=== PATIENT | female | born 1945 | race Caucasian/White ===

== ENCOUNTER → 2018-02-15 01:40 | Outpatient (CLI) | payer MEDICARE, BC, SELFPAY ==
--- NOTE | 2018-02-15 12:56 | DI.REPORT_ITS ---
SYMPTOM/DIAGNOSIS: SCREENING, BREAST CANCER SCREENING, Z12.31 BILATERAL SCREENING MAMMOGRAM: Mammograms were interpreted according to the usual protocol including computer analysis with CAD system, tomosynthesis and C view imaging. Comparison is made with exams from 2013 through 2017. The breasts are composed of heterogeneously dense fibroglandular tissue, breast density Category C. No suspicious masses or suspicious microcalcifications are seen. There has been no significant change. IMPRESSION: Category 1-C, negative mammogram. Routine screening is recommended. [facility] ASSESSMENT OF FINDINGS: Negative. Category 1. Patient will receive a letter notifying them of these results. Bi-RADS category C. The breasts are heterogeneously dense, which may obscure small masses.
== END ==
PROVIDERS: PCP Family Medicine; Visit Provider Family Medicine
DX: Z12.31 Encounter for screening mammogram for malignant neoplasm of breast (principal)
CPT/HCPCS: 77063; 77067

== ENCOUNTER 2018-12-03 02:03 | Outpatient (CLI) | payer MEDICARE, BC, SELFPAY ==
[2018-12-03 10:00] LABS: ALT 29 U/L (12-78); AST 14 U/L (15-37); Albumin 3.8 g/dL (3.4-5.0); Alkaline Phosphatase 97 U/L (46-116); Anion Gap 10.4 mmol/L (3-11); BUN 11 mg/dL (7-18); Bilirubin, Total 0.7 mg/dL (0.2-1.0); CO2 27.6 mmol/L (21.0-32.0); CREATININE 0.84 mg/dL (0.55-1.02); Chloride 103 mmol/L (98-107); Cholesterol 205 mg/dL (50-200); Glucose 98 mg/dL (70-100); HDL Cholesterol 76 mg/dL (40-60); LDL CHOLESTEROL 110 mg/dL (<100); Potassium 4.3 mmol/L (3.5-5.1); Sodium 141 mmol/L (136-145); Total Protein 6.5 g/dL (6.4-8.2); Triglyceride 59 mg/dL (30-150)
== END 2018-12-03 02:23 ==
PROVIDERS: PCP Family Medicine; Visit Provider Family Medicine
DX: I10 Essential (primary) hypertension (principal); I48.0 Paroxysmal atrial fibrillation; R10.9 Unspecified abdominal pain
CPT/HCPCS: 36415; 80053; 80061; 83721

== ENCOUNTER 2019-02-22 00:49 | Outpatient (CLI) | payer MEDICARE, BC, SELFPAY ==
--- NOTE | 2019-02-22 11:16 | DI.MAMMO_ITS ---
SYMPTOMS/DIAGNOSIS: SCREENING, Z12.31 MAMMOGRAMS: Mammograms were interpreted according to the usual protocol including computer analysis with CAD system, tomosynthesis and C view imaging. The breasts are heterogeneously dense. No dominant mass or clumped microcalcification is identified in either breast. Current examination is compared with previous examinations including February 2018 and there has been no gross interval change in appearance in comparison with the previous studies. CONCLUSION: No specific evidence of malignancy at this time. Routine screening examinations are suggested at yearly intervals due to the family history of breast carcinoma. Category 1, breast density category C. [facility] ASSESSMENT OF FINDINGS: Negative. Category 1. Patient will receive a letter notifying them of these results. Bi-RADS category C. The breasts are heterogeneously dense, which may obscure small masses.
== END 2019-02-22 01:09 ==
PROVIDERS: PCP Family Medicine; Visit Provider Family Medicine
DX: Z12.31 Encounter for screening mammogram for malignant neoplasm of breast (principal); Z80.3 Family history of malignant neoplasm of breast
CPT/HCPCS: 77063; 77067

== ENCOUNTER 2019-06-19 09:26 | Emergency (ER) | payer MEDICARE, BC, SELFPAY ==
[2019-06-19 09:32] VITALS: BP 152/108; PULSE 86; RESP 16; TEMP 36; O2SAT 97
--- NOTE | 2019-06-19 09:45 | ED.GENADUL_ITS ---
Discharge Plan Disposition Patient Disposition: HOME Condition: Stable Discharge Details Chief Complaint: Nk/Back Pain Clinical Impression: Spasm of thoracic back muscle Primary Care Provider: Annie Min ED Provider: Garry Culver Home Meds and New Rx's Prescriptions: New methocarbamol 500 mg tablet 500 - 1,000 mg PO Q6H PRN (Reason: Back pain or spasm) Qty: 14 RF: 0 Continued fluticasone propionate 50 mcg/actuation spray,suspension 2 spray HAYLEY DAILY PRNRF: 0 metoprolol succinate 25 mg tablet extended release 24 hr 12.5 mg PO DAILY Qty: 90 RF: 12 multivitamin [Once Daily] 1 EACH tablet 1 tab PO DAILY RF: 0 acetaminophen [Tylenol Extra Strength] 500 MG tablet 500 mg PO PRN RF: 0 ascorbic acid (vitamin C) [Vitamin C] 500 MG tablet 500 mg PO DAILY RF: 0 ibuprofen [Motrin IB] 200 MG tablet 200 mg PO PRN RF: 0 JOHANNA RED 1 cap PO DAILY RF: 0 BABY ASPIRIN 81 MG TAB.CHEW 81 mg PO DAILY RF: 0 loratadine 10 MG tablet 10 mg PO DAILY PRNQty: 90 RF: 12 albuterol sulfate [ProAir HFA] 90 mcg/actuation HFA aerosol inhaler 2 puff Inhalation Q4H PRN Qty: 8.5 RF: 7 lorazepam 0.5 mg tablet 0.5 mg PO BID PRN (Reason: agitation) Qty: 30 RF: 0 calcium carbonate [Caltrate 600] 600 MG tablet 600 mg PO BID RF: 0 cholecalciferol (vitamin D3) 1,000 UNITS tablet 1,000 unit PO DAILY RF: 0 Discharge Instructions Instructions: Muscle Spasm (ED) Additional Instructions: May continue Tylenol 500 to 650 mg every 6 hours, as well as ibuprofen 400 to 600 mg every 8 hours as needed for pain. Remove Lidoderm patch in 12 hours, leave off for 12 hours, then may obtain additional medicated patches through the local pharmacy. Please trial methocarbamol, as prescribed if needed for muscular pain and spasm. May apply ice to area to reduce discomfort. Resume normal activities as tolerated. Return if you develop worsening discomfort, fever, cough, chest pain, difficulty breathing, or any other acute concerns. Medical Decision Making 74-year-old female presents with thoracic pain and spasm that began on Thursday after lifting heavy groceries. She is noted to have hypertension 152/108 while in moderate discomfort. Patient given acetaminophen and Lidoderm patch. Referred for screening x-ray to rule out bony abnormality, mass. Chest x-ray with granulomas present, a tortuous aorta, no osseous abnormalities. Impression is of no acute process per radiology. She is improving with Lidoderm patch and Tylenol. We will trial methocarbamol for muscle pain and spasm. She understands not to take her PRN use lorazepam with this. Do not feel that there is evidence to pursue PE or aortic dissection. Discussed with the patient and her son indications to return to the ER for further evaluation or if she is not improving. HPI General Mode of arrival: ambulatory . Date/Time Provider Initiated Documentation: 06/19/19 09:28 . Limitations to Documentation: no limitations . Information obtained by: patient . History of Present Illness 74 year old F presents to the emergency department with the chief complaint of Thoracic back pain that began Thursday after carrying heavy load, described as moderate, and is localized to the chest and back. Patient reports no radiation. Patient started experiencing this hour(s) and it has been intermittent. Rest improves symptom(s), Movement worsens symptoms . Patient notes denies chest pain, cough, fever/chills, shortness of breath and syncope. Related Data Home Medications Medication Instructions Recorded Confirmed Johanna Red 1 cap PO DAILY 10/07/12 06/19/19 acetaminophen [Tylenol Extra 500 mg PO PRN 10/07/12 06/19/19 Strength] ascorbic acid (vitamin C) [Vitamin 500 mg PO DAILY 10/07/12 06/19/19 C] ibuprofen [Motrin IB] 200 mg PO PRN 10/07/12 06/19/19 multivitamin [Once Daily] 1 tab PO DAILY 10/07/12 06/19/19 calcium carbonate [Caltrate 600] 600 mg PO BID 01/13/13 06/19/19 cholecalciferol (vitamin D3) 1,000 unit PO DAILY 01/13/13 06/19/19 Baby Aspirin 81 mg PO DAILY tab-cap 11/14/13 06/19/19 loratadine 10 mg PO DAILY PRN #90 tab-cap 10/31/17 06/19/19 fluticasone propionate 50 2 spray HAYLEY DAILY PRN gm 07/08/18 06/19/19 mcg/actuation nasal spray,suspension albuterol sulfate 90 mcg/actuation 2 puff INHALATION Q4H PRN #8.5 gm 09/08/18 06/19/19 aerosol inhaler metoprolol succinate 25 mg 12.5 mg PO DAILY #90 tab 01/18/19 06/19/19 tablet,extended release 24 hr lorazepam 0.5 mg tablet 0.5 mg PO BID PRN #30 tab 03/15/19 06/19/19 methocarbamol 500 - 1,000 mg PO Q6H PRN #14 tab 06/19/19 Previous Rx's Medication Instructions Recorded albuterol sulfate 90 mcg/actuation 2 puff INHALATION Q4H PRN #8.5 gm 09/08/18 aerosol inhaler metoprolol succinate 25 mg 12.5 mg PO DAILY #90 tab 01/18/19 tablet,extended release 24 hr lorazepam 0.5 mg tablet 0.5 mg PO BID PRN #30 tab 03/15/19 methocarbamol 500 - 1,000 mg PO Q6H PRN #14 tab 06/19/19 Allergies Allergy/AdvReac Type Severity Reaction Status Date / Time doxycycline Allergy Mild Unverified 06/19/19 09:35 bupropion AdvReac Mild Unverified 06/19/19 09:35 guaifenesin AdvReac Mild Unverified 06/19/19 09:35 Sulfa (Sulfonamide AdvReac Unknown Nausea Unverified 06/19/19 09:35 Antibiotics) General Stated Complaint: Nk/Back Pain DEVIN: 4 Review of Systems Narrative: Denies rash. No fall or injury. Carrying heavy groceries up 2 flights of stairs on Thursday and then the discomfort began. She had comfort with lying flat last night. Denies urinary symptoms. 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 NORMAL BARIUM SWALLOW Onychomycosis (Chronic 02/02/17) Osteoporosis (Chronic 09/02/01) T -4.5 Paroxysmal atrial fibrillation (Chronic) Smoker (Acute 07/25/08) Surgical History (Updated 11/30/18 @ 09:49 by Adam Lopez) section (05/19/75) Colonoscopy - MAC (06/08/07) ECHO (10/15/12) PAROXYSMAL A-FIB ([facility]) EGD - MAC (~2001) HH Family History Mother , 97 Rectal cancer Father , 75 COPD (chronic obstructive pulmonary disease) Sister , 73 Neoplasm BREAST Breast cancer Sister Diabetes COPD (chronic obstructive pulmonary disease) Hyperlipidemia Brother Essential hypertension Hyperlipidemia Maternal Grandfather , 73 Depression Paternal Grandfather , 73 Stroke Maternal Grandmother , 65 Lung cancer Paternal Grandmother , 78 No problems noted. Son No problems noted. Daughter No problems noted. Social History (Updated 01/20/19 @ 13:23 by Sanford Almonte) Smoking/Tobacco Use Status: Current every day Tobacco Type: cigarettes Second Hand Exposure: Yes Alcohol Intake: current Alcohol Intake frequency: 0-2 drinks per day Alcohol type: beer Drug use: Never Substance use type: does not use Caregiver/Support person: No Household members: none Housing: apartment Communication Needs: Corrective Lenses Do you need help understanding health information?: Rarely Pets and animals: Yes Pets and animals: cat(s) Sexually active: No Do you think of yourself as: straight/heterosexual Current gender identity: female What is your relationship status?: How often do you talk on the phone with friends or family?: twice per week How often do you get together with friends or relatives?: twice per week How often do you attend hoahaoism or confucianist services?: 4 or more times per year Do you belong to any clubs or organized social groups?: no Panel score (0-1 are the most socially isolated patients): 2 What type of physical activity do you participate in: walking and other Details: Murphy Ball, Bill Chi, stationary bike Duration: 15-30 minutes/day Frequency: 3-4 times per week Komal/Latter Day: Quaker Special komal needs: No Seatbelt use: always 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 Pleasant, well groomed, interactive. HEAD: Normocephalic, atraumatic ENT: Mucous membranes moist, oropharynx unremarkable, External ear exam unremarkable EYES: PERRL, EOMI NECK: Full ROM, no ISRAEL, no menigismus CHEST/RESP: Nontender, clear to auscultation bilateral, posterior thoracic cage tenderness in the midthoracic region with paraspinous spasm on the right greater than left sides. CARDIOVASCULAR: RRR, no murmur, rub maricarmen. 2+ Rad pulse bilateral ABDOMEN: Soft, nontender, no mass. +Bowel sounds EXT: Full ROM, no edema, no rash Neuro: Grossly normal neurologic exam, conversant, interactive. Psych: Speech fluent, thoughts congruent, affect normal Course Vital Signs Vital signs: Vital Signs Temperature 36 C L 06/19/19 09:32 Pulse 86 06/19/19 09:32 Respiratory Rate 16 06/19/19 09:32 Blood Pressure 152/108 H 06/19/19 09:32 Pulse Oximetry 97 06/19/19 09:32 Temperature 36 C L 06/19/19 09:32 Temperature Source Skin 06/19/19 09:32 Pulse 86 06/19/19 09:32 Respiratory Rate 16 06/19/19 09:32 Respiratory Effort Non-Labored 06/19/19 09:32 Blood Pressure 152/108 H 06/19/19 09:32 Blood Pressure Position Sitting 06/19/19 09:32 Pulse Oximetry 97 06/19/19 09:32 Oxygen Delivery Method Room Air 06/19/19 09:32 Oxygen Flow Rate 0 06/19/19 09:32 Pain Level 9 06/19/19 09:32
[2019-06-19] MEDS: Acetaminophen 500 MG TAB 1000 MG PO (09:54)
[2019-06-19] MEDS: Lidocaine 5% Patch 1 PATCH TP (09:54)
--- NOTE | 2019-06-19 10:15 | DI.RAD_ITS ---
EXAM: XR CHEST 2V PA LATERAL INDICATION: posterior thoracic pain, smoker. COMPARISON: No exams were available for comparison TECHNIQUE: 2D digital imaging was performed. FINDINGS: The heart is mildly enlarged and the aorta is tortuous, stable. Lungs are well inflated and clear. Scattered calcified granulomas are again noted bilaterally. There is a slight compression fracture o f T9 which appears new when compared with the previous exam. IMPRESSION: Mild T9 compression fracture, new since 2018. No acute pulmonary abnormality.
--- NOTE | 2019-06-19 10:21 | DI.VRAD_ITS ---
PROCEDURE INFORMATION: Exam: XR Chest, 2 Views Exam date and time: 06/19/2019 9:45 AM Age: 74 years old Clinical history: Other: Posterior thoracic pain, smoker TECHNIQUE: Imaging protocol: XR of the chest Views: 2 views. COMPARISON: CR CHEST 2 VIEWS PA,LAT 12/08/2017 8:47 AM FINDINGS: Lungs: Defied granulomas throughout the lung fuentes Pleural space: Unremarkable. No pleural effusion. No pneumothorax. Heart/Mediastinum: Unremarkable. No cardiomegaly. Vasculature: Tortuous aorta Bones/joints: Osseous structures are stable IMPRESSION: No acute process Dictated and Authenticated by: Stephany Marina MD. Ordering:HOWARD Castañeda MD
[2019-06-19 10:38] VITALS: BP 148/100; PULSE 72; RESP 16; O2SAT 97
== END 2019-06-19 10:43 | disposition home or self-care (01) ==
PROVIDERS: Emergency Provider Emergency Medicine; PCP Family Medicine
DX: M62.830 Muscle spasm of back (principal); X50.9XXA Other and unspecified overexertion or strenuous movements or postures, initial encounter; I10 Essential (primary) hypertension
CPT/HCPCS: 99283; 71046

== ENCOUNTER 2019-06-23 17:24 | Outpatient (CLI) | payer MEDICARE, BC, SELFPAY ==
--- NOTE | 2019-06-23 15:45 | DI.RAD_ITS ---
EXAM: XR THORACIC SPINE COMPLETE CLINICAL HISTORY: compression fx thoracic spine, S22.000A, wedge compression fracture TECHNIQUE COMPARISON: CHEST 2 VIEWS PA,LAT from 12/08/2017 XR CHEST 2V PA LATERAL from 06/19/2019 FINDINGS: Three views were obtained. There are multiple calcified pulmonary granulomata. There is a left conv ex thoracic scoliosis. There is mild anterior compression fracture of what is likely T9. Mild hyper trophic endplate changes seen throughout the thoracic region. No other abnormality is seen. IMPRESSION: Mild T9 anterior compression fracture. This was not present on prior chest film of 12/08/2017.
[2019-06-23 17:14] LABS: ALT 27 U/L (14-59); AST 33 U/L (15-37); Albumin 3.7 g/dL (3.4-5.0); Alkaline Phosphatase 98 U/L (46-116); Anion Gap 7.7 mmol/L (3-11); BUN 11 mg/dL (7-18); Bilirubin, Total 0.4 mg/dL (0.2-1.0); CO2 28.3 mmol/L (21.0-32.0); CREATININE 0.75 mg/dL (0.55-1.02); Calcium 9.5 mg/dL (8.5-10.1); Chloride 104 mmol/L (98-107); Glucose 102 mg/dL (74-106); Potassium 3.8 mmol/L (3.5-5.1); Sodium 140 mmol/L (136-145); Total Protein 6.6 g/dL (6.4-8.2)
[2019-06-23 17:37] LABS: Vitamin D 25 Total 61.4 ng/ml (30-100)
== END 2019-06-23 17:44 ==
PROVIDERS: PCP Family Medicine; Visit Provider Family Medicine
DX: S22.000A Wedge compression fracture of unspecified thoracic vertebra, initial encounter for closed fracture (principal); I10 Essential (primary) hypertension; F17.200 Nicotine dependence, unspecified, uncomplicated; M81.0 Age-related osteoporosis without current pathological fracture
CPT/HCPCS: 36415; 80053; 82306; 72072

== ENCOUNTER 2019-07-18 01:39 | Outpatient (CLI) | payer MEDICARE, BC, SELFPAY ==
--- NOTE | 2019-07-18 14:17 | DI.CTLCSR_ITS ---
EXAM: CT CHEST LUNG CANCER SCREEN CLINICAL HISTORY: NICOTINE DEPENDENCE, F17.210. TECHNIQUE: Imaging protocol: Axial computed tomography images were obtained and coronal and sagittal reformatted images were created and reviewed. COMPARISON: XR THORACIC SPINE COMPLETE from 06/23/2019 FINDINGS: Tracheobronchial tree: Patent where visualized. Mediastinum and Yumiko: No dominant adenopathy or fluid collection. Calcified lymph nodes are seen in t he mediastinum consistent with prior granulomatous disease. Pulmonary parenchyma: No consolidation or dominant measurable mass. There are several calcified granu almas present. No noncalcified pulmonary nodules are seen. There is scarring seen in the left lung base. Dependent atelectatic changes are seen in the lung bases. Pleura: No effusion or pneumothorax. Heart: The heart is not dilated. No coronary artery calcifications are seen. No significant pericardi al effusion is present. Aorta: There is atherosclerosis. No aneurysmal dilatation is present. Upper abdomen: Unremarkable. Lymph nodes: Findings consistent with prior granulomatous disease. Bones:There is a stable T9 compression fracture deformity. IMPRESSION: 1. No noncalcified pulmonary nodules. 2. Findings consistent with prior granulomatous disease. 3. Stable T9 compression fracture deformity. 4. Lung RADS Cat 1 - Negative: No nodules and definitely benign nodules DATA REPOSITORY: All CT scans at this facility are submitted to the National Radiology Data Registry (NRDR) Dose Index Registry (DIR) with the [employer] (ACR). RADIATION OPTIMIZATION: All CT scans at this facility use at least one of these dose optimization te chniques: automated exposure control; mA and/or kV adjustment per patient size (includes targeted exa ms where dose is matched to clinical indication); or iterative reconstruction.
== END 2019-07-18 01:59 ==
PROVIDERS: PCP Family Medicine; Visit Provider Family Medicine
DX: Z12.2 Encounter for screening for malignant neoplasm of respiratory organs (principal); F17.210 Nicotine dependence, cigarettes, uncomplicated; J84.10 Pulmonary fibrosis, unspecified; J98.4 Other disorders of lung
CPT/HCPCS: G0297

== ENCOUNTER 2019-08-09 01:25 | Outpatient (CLI) | payer MEDICARE, BC, SELFPAY ==
--- NOTE | 2019-08-09 17:20 | DI.DEXA_ITS ---
EXAM: XR DEXA BONE DENSITY W/WO BOB INDICATION: compression fx. M81.0 AGE RELATED OSTEOPOROSIS. COMPARISON: No exams were available for comparison TECHNIQUE: 2D digital imaging was performed. FINDINGS: Lateral spine film shows compression deformities in the lumbar and thoracic spine. Evaluation of the left hip shows a total T-score of -2.3 and a Z-score of -0.7. This is consistent w ith osteopenia and an increased fracture risk. This compares with a total T-score of -1.7 from 2009. Evaluation of the lumbar spine shows a total T-score of -2.8 and a Z-score of -0.5. This is consiste nt with osteoporosis and a high fracture risk. This compares with a total T-score of -3.5 from 2009. IMPRESSION: Osteoporosis in the lumbar spine.
== END 2019-08-09 01:45 ==
PROVIDERS: PCP Family Medicine; Visit Provider Family Medicine
DX: M81.0 Age-related osteoporosis without current pathological fracture (principal); M85.88 Other specified disorders of bone density and structure, other site
CPT/HCPCS: 77080

== ENCOUNTER 2019-12-09 08:30 | Emergency (ER) | payer MEDICARE, BC, SELFPAY ==
[2019-12-09 08:46] VITALS: BP 141/96; PULSE 76; RESP 16; TEMP 36.6; O2SAT 99
--- NOTE | 2019-12-09 08:56 | W.ED.GENAD ---
Discharge Plan Disposition Patient Disposition: HOME Condition: Improving Discharge Details Chief Complaint: Nk/Back Pain Clinical Impression: Strain of thoracic back region Primary Care Provider: Annie Min ED Provider: Romina Saldaña Home Meds and New Rx's Prescriptions: New methocarbamol 500 mg tablet 500 mg PO Q6H PRN (Reason: muscle spasm) Qty: 14 RF: 0 lidocaine [Lidoderm] 5 % adhesive patch,medicated 1 patch TP DAILY PRN (Reason: pain) Qty: 15 RF: 0 oxycodone 5 mg tablet 5 mg PO Q6H PRN (Reason: pain) Qty: 7 RF: 0 Continued fluticasone propionate 50 mcg/actuation spray,suspension 2 spray HAYLEY DAILY PRNRF: 0 metoprolol succinate 25 mg tablet extended release 24 hr 12.5 mg PO DAILY Qty: 90 RF: 12 multivitamin [Once Daily] 1 EACH tablet 1 tab PO DAILY RF: 0 acetaminophen [Tylenol Extra Strength] 500 MG tablet 500 mg PO PRN RF: 0 ascorbic acid (vitamin C) [Vitamin C] 500 MG tablet 500 mg PO DAILY RF: 0 ibuprofen [Motrin IB] 200 MG tablet 200 mg PO PRN RF: 0 JOHANNA RED 1 cap PO DAILY RF: 0 BABY ASPIRIN 81 MG TAB.CHEW 81 mg PO DAILY RF: 0 albuterol sulfate [ProAir HFA] 90 mcg/actuation HFA aerosol inhaler 2 puff Inhalation Q4H PRN Qty: 8.5 RF: 7 methocarbamol 500 mg tablet 500 - 1,000 mg PO TID PRN (Reason: Back pain or spasm) Qty: 60 RF: 0 lorazepam 0.5 mg tablet 0.5 mg PO BID PRN (Reason: agitation) Qty: 30 RF: 0 calcium carbonate [Caltrate 600] 600 MG tablet 600 mg PO BID RF: 0 cholecalciferol (vitamin D3) 1,000 UNITS tablet 1,000 unit PO DAILY RF: 0 Discharge Instructions Instructions: Thoracic Back Strain (ED) Additional Instructions: Alternate ice and heat to the affected area(s) several times daily for 20 minutes at a time. Alternate tylenol and motrin as needed and directed for pain. Take the muscle relaxer as needed and directed for pain. Use Lidoderm patch as needed and directed for pain. Follow-up with your primary care doctor in 1 week for re-evaluation and for referral for physical therapy or for consideration for additional imaging such as CT or MRI if symptoms worsen or change. Return to the emergency department with any worsening or new concerning symptoms. Discharge Data Discharge Physician: Romina Saldaña Medical Decision Making [id number] -- 74-year-old female with a history of T9 compression fracture who presents with mid back pain that started suddenly after patient opened a window that was stuck at home this morning. She denies any weakness or radiation of pain into her extremities but does admit to tingling in her fingertips. She denies any chest pain or shortness of breath. She has not taken any medication for pain. She has bilateral thoracic paraspinal tenderness but no midline spinal tenderness or focal deficits. She is neurovascular intact. Lungs clear. Differential diagnosis includes muscle strain, thoracic spine compression fracture, less likely herniated disc. Will obtain a thoracic spine x-ray and give a dose of Toradol. 1030 --patient reassessed -states her pain is not much improved. Will give a dose of oxycodone p.o. x1 and reassess. Imaging reviewed and negative for acute findings. 1200 --patient reassessed -she states she has not eaten any food yet today and is concerned about getting up after having all of his pain medication. She was given a tray of food and ambulated and had improvement of pain. Case discussed with son who will be picking patient up. We will send with Lidoderm patch, methocarbamol and advised to alternate Tylenol and Motrin, ice and heat. We will also send with some oxycodone to take at night as needed for breakthrough pain. Advised to follow up with the primary care doctor for re-evaluation. Usual and customary return precautions given prior to discharge. Medical Records Medical records reviewed: Yes I reviewed the patient's medical records. Imaging Data Radiologic Study: Radiologist's impression: XR THORACIC SPINE COMPLETE CLINICAL HISTORY: h/o T9 compression fx, assess for new or worsening TECHNIQUE: COMPARISON: CT CT CHEST LUNG CANCER SCREEN from 07/18/2019 FINDINGS: Three views were obtained. Previously described T9 vertebral compression fracture is again seen, no gross interval change in appearance in comparison with prior CT of July 18. No new fracture identified by plain film criteria. Moderate hypertrophic degenerative changes again noted involving the vertebral endplates. Multiple calcified pulmonary granulomas again noted. HPI General Mode of arrival: ambulatory. Date/Time Provider Initiated Documentation: 12/09/19 08:55. Limitations to Documentation: no limitations. Information obtained by: patient. HPI Narrative: Patient is a 74-year-old female with a history of paroyxsmal atrial fibrillation, depression, hypertension who presents with mid back pain after attempting to open a window that was stuck at home this morning. Patient states the pain radiates across her upper back. She denies any chest pain or shortness of breath. She has not taken any medication for pain. She denies any radiation of pain or weakness in her extremities. She does admit to occasional tingling in her fingertips. Related Data Home Medications Medication Instructions Recorded Confirmed Johanna Red 1 cap PO DAILY 10/07/12 12/09/19 acetaminophen [Tylenol Extra 500 mg PO PRN 10/07/12 12/09/19 Strength] ascorbic acid (vitamin C) [Vitamin 500 mg PO DAILY 10/07/12 12/09/19 C] ibuprofen [Motrin IB] 200 mg PO PRN 10/07/12 12/09/19 multivitamin [Once Daily] 1 tab PO DAILY 10/07/12 12/09/19 calcium carbonate [Caltrate 600] 600 mg PO BID 01/13/13 12/09/19 cholecalciferol (vitamin D3) 1,000 unit PO DAILY 01/13/13 12/09/19 Baby Aspirin 81 mg PO DAILY tab-cap 11/14/13 12/09/19 fluticasone propionate 50 2 spray HAYLEY DAILY PRN gm 07/08/18 12/09/19 mcg/actuation nasal spray,suspension albuterol sulfate 90 mcg/actuation 2 puff INHALATION Q4H PRN #8.5 gm 09/08/18 07/25/19 aerosol inhaler metoprolol succinate 25 mg 12.5 mg PO DAILY #90 tab 01/18/19 12/09/19 tablet,extended release 24 hr methocarbamol 500 mg tablet 500 - 1,000 mg PO TID PRN #60 tab 06/27/19 07/25/19 lorazepam 0.5 mg tablet 0.5 mg PO BID PRN #30 tab 09/05/19 12/09/19 lidocaine [Lidoderm] 1 patch TP DAILY PRN #15 each 12/09/19 methocarbamol 500 mg PO Q6H PRN #14 tab 12/09/19 oxycodone 5 mg PO Q6H PRN #7 tab 12/09/19 Previous Rx's Medication Instructions Recorded albuterol sulfate 90 mcg/actuation 2 puff INHALATION Q4H PRN #8.5 gm 09/08/18 aerosol inhaler metoprolol succinate 25 mg 12.5 mg PO DAILY #90 tab 01/18/19 tablet,extended release 24 hr methocarbamol 500 mg tablet 500 - 1,000 mg PO TID PRN #60 tab 06/27/19 lorazepam 0.5 mg tablet 0.5 mg PO BID PRN #30 tab 09/05/19 lidocaine [Lidoderm] 1 patch TP DAILY PRN #15 each 12/09/19 methocarbamol 500 mg PO Q6H PRN #14 tab 12/09/19 oxycodone 5 mg PO Q6H PRN #7 tab 12/09/19 Allergies Allergy/AdvReac Type Severity Reaction Status Date / Time doxycycline Allergy Mild Unverified 12/09/19 08:53 bupropion AdvReac Mild Unverified 12/09/19 08:53 guaifenesin AdvReac Mild Unverified 12/09/19 08:53 Sulfa (Sulfonamide AdvReac Unknown Nausea Unverified 12/09/19 08:53 Antibiotics) General Stated Complaint: Nk/Back Pain DEVIN: 3 Review of Systems All systems reviewed & are unremarkable except as noted in HPI and below Constitutional Constitutional: Reports as per HPI, Denies chills and Denies fever(s) Eyes Eyes: Denies blurry vision ENT Ears, Nose, Mouth, and Throat: Denies dizziness, Denies sore throat and Denies throat swelling Cardiovascular Cardiovascular: Denies chest pain and Denies dyspnea Respiratory Respiratory: Denies cough and Denies dyspnea Gastrointestinal Gastrointestinal: Denies abdominal pain, Denies diarrhea and Denies vomiting Genitourinary Genitourinary: Denies hematuria and Denies dysuria Musculoskeletal Musculoskeletal: Reports back pain and Denies numbness Integumentary/Breasts Skin/Breast: Denies lesions and Denies rash Neurologic Neurologic: Denies dizziness, Denies localized weakness and Denies numbness Allergic/Immunologic Allergic/Immunologic: Denies throat swelling PFSH Medical History Abnormal laboratory test result (Inactive) Breast lump (Inactive 11/02/02) Closed fracture of rib (Inactive) Depressive disorder (Chronic) 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 NORMAL BARIUM SWALLOW History of echocardiogram (Inactive) Hypokalemia (Inactive 06/17/12) Onychomycosis (Chronic 02/02/17) Osteoporosis (Chronic 09/02/01) T -4.5 Paroxysmal atrial fibrillation (Chronic) Smoker (Acute 07/25/08) Standard chest x-ray abnormal (Inactive) Surgical History section (05/19/75) Colonoscopy - MAC (06/08/07) ECHO (10/15/12) PAROXYSMAL A-FIB ([facility]) EGD - MAC (~2001) HH History of section (Inactive) History of esophagogastroduodenoscopy (Inactive) Family History Mother , 97 Rectal cancer Father , 75 COPD (chronic obstructive pulmonary disease) Sister , 73 Neoplasm BREAST Breast cancer Sister Diabetes COPD (chronic obstructive pulmonary disease) Hyperlipidemia Brother Essential hypertension Hyperlipidemia Maternal Grandfather , 73 Depression Paternal Grandfather , 73 Stroke Maternal Grandmother , 65 Lung cancer Paternal Grandmother , 78 No problems noted. Son No problems noted. Daughter No problems noted. Social History (Updated 01/20/19 @ 13:23 by Sanford Almonte) Smoking/Tobacco Use Status: Current every day Tobacco Type: cigarettes Second Hand Exposure: Yes Alcohol Intake: current Alcohol Intake frequency: 0-2 drinks per day Alcohol type: beer Drug use: Never Substance use type: does not use Caregiver/Support person: No Household members: none Housing: apartment Communication Needs: Corrective Lenses Do you need help understanding health information?: Rarely Pets and animals: Yes Pets and animals: cat(s) Sexually active: No Do you think of yourself as: straight/heterosexual Current gender identity: female What is your relationship status?: How often do you talk on the phone with friends or family?: twice per week How often do you get together with friends or relatives?: twice per week How often do you attend jainism or catholic services?: 4 or more times per year Do you belong to any clubs or organized social groups?: no Panel score (0-1 are the most socially isolated patients): 2 What type of physical activity do you participate in: walking and other Details: Murphy Ball, [place], stationary bike Duration: 15-30 minutes/day Frequency: 3-4 times per week Komal/Yazdanism: Restorationism Special komal needs: No Seatbelt use: always Drive intox or ride w/intox auto driver: No Do you feel safe at home: Yes Do you feel safe in your relationship?: Yes Exam Const General: cooperative, healthy appearing and no acute distress HENMT Head: normal to inspection Face and sinus: normal facial exam Eyes General: appearance normal, both eyes and all related structures EOM: EOM intact bilaterally Neck Neck: normal visual inspection and No submandibular swelling Lymphatic: no lymphadenopathy noted Chest Chest: normal inspection of the chest and no tenderness Resp Effort & Inspection: normal respiratory effort and able to speak in complete sentences Auscultation: clear to auscultation bilaterally Cardio Rate: regular rate Rhythm: regular rhythm GI Inspection: normal to inspection Palpation: soft, not firm, not rigid and nontender Auscultation: normal bowel sounds Back/Spine/Pelvis Cervical Spine: cervical ROM normal, No cervical muscular tenderness, pain with cervical ROM (pain in thoracic back reproduced with sidebending of head to L and R side), No cervical spinal tenderness and other Thoracic/Lumbar Spine: thoracic and lumbar spine normal to inspection, thoraco-lumbar ROM normal (pain in upper back with L and R rotation and sidebending), No thoracic spinal tenderness and No lumbar spinal tenderness Pelvis: no pain with anterior-posterior compression Back/spine/pelvis image: 1. Tenderness to palpation of L thoracic paraspinal region 2. Tenderness to palpation of R thoracic paraspinal region Skin General skin exam: no rashes or lesions noted Neuro General: patient alert, patient awake and patient oriented x3 Cognition: normal cognition Speech: speech normal Motor: muscle tone normal throughout and strength 5/5 throughout Sensory Exam: no sensory deficits noted Extrem General: normal to inspection, full ROM, capillary refill normal, no calf tenderness bilaterally and no edema Right upper extremity: hand Details: vascular exam Details: radial pulse present and ulnar pulse present Left upper extremity: hand Details: vascular exam Details: radial pulse present Psych Appearance: grossly normal Mental Status: mental status grossly normal Speech and Movement: speech and movement normal Affect: normal affect Course Vital Signs Vital signs: Vital Signs Temperature 97.9 F 12/09/19 08:46 Pulse 76 12/09/19 08:46 Respiratory Rate 16 12/09/19 08:46 Blood Pressure 141/96 H 12/09/19 08:46 Pulse Oximetry 99 12/09/19 08:46 Temperature 97.9 F 12/09/19 08:46 Temperature Source Skin 12/09/19 08:46 Pulse 76 12/09/19 08:46 Respiratory Rate 16 12/09/19 08:46 Respiratory Effort 12/09/19 08:53 Blood Pressure 141/96 H 12/09/19 08:46 Blood Pressure Position Sitting 12/09/19 08:46 Pulse Oximetry 99 12/09/19 08:46 Oxygen Delivery Method Room Air 12/09/19 08:46 Oxygen Flow Rate 0 12/09/19 08:46 Pain Level 10 12/09/19 08:53
[2019-12-09] MEDS: Ketorolac 60 MG/2 ML VIAL IM (09:22)
[2019-12-09] MEDS: diazePAM 5 MG TAB PO (09:22)
[2019-12-09] MEDS: Lidocaine 5% Patch 1 PATCH TP (09:23)
--- NOTE | 2019-12-09 10:00 | DI.RAD_ITS ---
EXAM: XR THORACIC SPINE COMPLETE CLINICAL HISTORY: h/o T9 compression fx, assess for new or worsening TECHNIQUE: COMPARISON: CT CT CHEST LUNG CANCER SCREEN from 07/18/2019 FINDINGS: Three views were obtained. Previously described T9 vertebral compression fracture is again seen, no gross interval change in appearance in comparison with prior CT of July 18. No new fracture identified by plain film criteria. Moderate hypertrophic degenerative changes again noted involving the vertebral endplates. Multiple calcified pulmonary granulomas again noted. IMPRESSION:
[2019-12-09] MEDS: oxyCODONE 5 MG TAB PO (10:40)
[2019-12-09 11:03] VITALS: BP 133/76; PULSE 65; RESP 19; TEMP 36.7; O2SAT 97
[2019-12-09 12:42] VITALS: BP 141/82; PULSE 74; RESP 18; TEMP 36.6; O2SAT 95
[2019-12-09 13:00] VITALS: BP 141/82; PULSE 74; RESP 18; TEMP 36.6; O2SAT 95
== END 2019-12-09 13:05 | disposition home or self-care (01) ==
PROVIDERS: Emergency Provider Physician Assistant; PCP Family Medicine
DX: S29.012A Strain of muscle and tendon of back wall of thorax, initial encounter (principal); X50.9XXA Other and unspecified overexertion or strenuous movements or postures, initial encounter; R20.2 Paresthesia of skin; I10 Essential (primary) hypertension
CPT/HCPCS: 96372; 99284; 72072; 99285; J1885

== ENCOUNTER 2019-12-16 04:12 | Outpatient (CLI) | payer MEDICARE, BC, SELFPAY ==
[2019-12-16 12:34] LABS: Abs Immature Grans 0.01 k/cumm (0.0-0.09); Absolute Basophil Count 0.06 k/cumm (0.0-0.2); Absolute Eosinophil Count 0.07 k/cumm (0.0-0.7); Absolute Lymphocyte Count 1.05 k/cumm (1.2-3.4); Absolute Monocyte Count 0.47 k/cumm (0.11-0.7); Absolute Neutrophil Count 4.69 k/cumm (1.2-6.7); Basophils % 0.9; Eosinophils % 1.1; HGB 14.9 g/dL (12.0-15.5); Immature Grans % 0.2 %; Lymphocytes % 16.5; Mean Corp. HGB Concentration 34.7 g/dL (32.0-36.0); Mean Corpuscular Hemoglobin 33.3 pg (27.0-33.0); Mean Platelet Volume 10.7 fL (8.0-11.0); Monocytes % 7.4; Neutrophils % 73.9; Platelet Count 210 x1000/uL (130-400); RBC 4.48 m/cumm (4.00-5.20); RBC Distribution Width 13.2 % (11.7-14.6); White Blood Cell Count 6.35 k/cumm (4.4-10.8)
[2019-12-16 13:10] LABS: ALT 22 U/L (14-59); AST 15 U/L (15-37); Albumin 3.9 g/dL (3.4-5.0); Alkaline Phosphatase 90 U/L (46-116); Anion Gap 10.2 mmol/L (3-11); BUN 11 mg/dL (7-18); Bilirubin, Total 0.5 mg/dL (0.2-1.0); CO2 27.8 mmol/L (21.0-32.0); CREATININE 0.84 mg/dL (0.55-1.02); Calcium 9.5 mg/dL (8.5-10.1); Chloride 99 mmol/L (98-107); Glucose 104 mg/dL (74-106); Potassium 3.8 mmol/L (3.5-5.1); Sodium 137 mmol/L (136-145); Total Protein 6.6 g/dL (6.4-8.2)
[2019-12-16 14:09] LABS: ESR 10 mm/hr (0-30)
[2019-12-20 14:25] LABS: Albumin 60.5 % (55.8-66.1); Total Protein 6.6 g/dL (6.3-8.2)
== END 2019-12-16 04:32 ==
PROVIDERS: PCP Family Medicine; Visit Provider Family Medicine
DX: M54.89 Other dorsalgia (principal)
CPT/HCPCS: 36415; 80053; 85652; 84165; 85025

== ENCOUNTER 2020-02-29 01:08 | Outpatient (CLI) | payer MEDICARE, BC, SELFPAY ==
--- NOTE | 2020-02-29 10:54 | DI.MAMMO_ITS ---
EXAM: MG MAMMO SCREENING CLINICAL HISTORY: screening,Z12.39 TECHNIQUE: Mammograms were interpreted according to the usual protocol including computer analysis w [employer] CAD system, tomosynthesis and C-view imaging. COMPARISON: FINDINGS: The breasts are of moderate density with fairly symmetrical distribution of fibroglandular tissue. N o dominant mass or clumped microcalcification is identified in either breast. The current examinatio n is compared with previous examinations including February 2019 and there has been no gross interval c hange in appearance in comparison with the prior studies. IMPRESSION: No specific evidence of malignancy at this time. Routine screening examinations are suggested at yea rly intervals due to the family history of breast carcinoma. BI-RADS Cat 1 - Negative Breast Density - Category C - Heterogeneously dense
== END 2020-02-29 01:28 ==
PROVIDERS: PCP Family Medicine; Visit Provider Family Medicine
DX: Z12.31 Encounter for screening mammogram for malignant neoplasm of breast (principal); R92.2 Inconclusive mammogram; Z80.3 Family history of malignant neoplasm of breast
CPT/HCPCS: 77063; 77067

== ENCOUNTER 2020-07-06 11:47 | Observation (INO) | payer MEDICARE, BC, SELFPAY ==
[2020-07-06] VITALS (35 sets, daily range): BP systolic 115–161; BP diastolic 83–137; PULSE 63–96; RESP 11–25; TEMP 35.9–36.9; O2SAT 93–98
--- NOTE | 2020-07-06 11:45 | RT.EKG_ITS ---
APPROVED REPORT Exam: Resting ECG Patient Location: E HR:84 bpm ECG Measurements Heart Rate 84 AXIS OR 166 P 54 QRSd 90 QRS -31 QT 366 T 13 QTc 433 Conclusion Sinus rhythm...normal P axis, V-rate 60- 99 Left axis deviation...QRS axis (-30,-90). No STEMI. I have reviewed and interpreted ECG and agree with software generated interpretation.
--- NOTE | 2020-07-06 11:45 | RT.EKG_ITS ---
APPROVED REPORT Exam: Resting ECG Patient Location: E HR:96 bpm ECG Measurements Heart Rate 96 AXIS MO 139 P 54 QRSd 91 QRS -45 QT 380 T 25 QTc 481 Conclusion Sinus rhythm...normal P axis, V-rate 60- 99 Left anterior fascicular block...axis(240,-40), init forces inf Nonspecific T abnrm, anterolateral leads...T <-0.10mV, I aVL V2-V6 ST elevation, consider lateral injury...ST >0.10mV, I aVL V5 V6. Poor baseline. Artifact. Does not appear significantly different from old EKG 2018.
--- NOTE | 2020-07-06 11:59 | ED.GENADUL_ITS ---
Discharge Plan Disposition Patient Disposition: [facility] INPATIENT Condition: Stable Discharge Details Clinical Impression: Chest pain, rule out acute myocardial infarction Admit Date/Time: 07/06/20 15:32 Admit Provider: Kenny Pollard Attending Provider: Kenny Pollard Primary Care Provider: Annie Min ED Provider: Romina Saldaña Medical Decision Making 1200 -- 75yo female with a history of atrial fibrillation, anxiety, depression, hypertension, chronic tobacco smoker presents for chest tightness with radiation to her neck causing fullness that occurred 30 minutes after going for a 2 mile walk today. EKG on arrival notes a rate of 84, sinus, no acute ST ischemic changes. Her blood pressure is mildly hypertensive, otherwise vitals within normal limits. She appears nontoxic. Her chest is nontender. Her neck appears normal to inspection. Her lungs are clear. Considering patient's age and risk factors, will obtain a cardiac work-up with concern for ACS. Her story is moderately concerning considering it started after exercise. Consider also the possibility of a GI etiology. 1430 -- Labs and imaging reviewed. Troponin negative. CT chest notes multiple granulomas in the lungs but no other acute disease. CT abdomen pelvis negative for acute findings. Patient was aware of her history of granulomatous disease in her lungs. Patient reassessed and her symptoms improved. She is complaining of upper back pain which she has frequently with her history of compression fractures. Will give a dose of IV Tylenol. Patient is agreeable with plan for admission. We will admit patient for observation overnight and serial tropes and EKGs. Case discussed with hospitalist accepts patient for admission. Medical Records Medical records reviewed: Yes I reviewed the patient's medical records. Imaging Data Radiologic Study: Radiologist's impression: CT Angiography Chest With Contrast Exam date and time: 07/06/2020 1:54 PM Age: 75 years old Clinical indication: Other: Chest tighness, radiation to neck TECHNIQUE: Imaging protocol: Computed tomographic angiography of the chest with intravenous contrast. 3D rendering (Not supervised by radiologist): MIP and/or 3D reconstructed images were created by the technologist. Radiation optimization: All CT scans at this facility use at least one of these dose optimization techniques: automated exposure control; mA and/or kV adjustment per patient size (includes targeted exams where dose is matched to clinical indication); or iterative reconstruction. Contrast material: OMNIPAQUE 350; Contrast volume: 100 ml; Contrast route: INTRAVENOUS (IV); COMPARISON: CT CHEST LUNG CANCER SCREEN 07/18/2019 2:17 PM FINDINGS: Pulmonary arteries: Normal. No pulmonary emboli. Aorta: Unremarkable. No aortic aneurysm. No aortic dissection. No ground-glass opacities or consolidations Lungs: Unremarkable. No consolidation. No masses. Calcified granulomata in the right middle lobe , the right lower lobe, the left lower lobe and the left upper lobe. Areas of fibrosis in both lower lobes Pleural space: Unremarkable. No pneumothorax. No pleural effusion. Heart: Unremarkable. No cardiomegaly. No pericardial effusion. Lymph nodes: Unremarkable. No enlarged lymph nodes. Bones/joints: Moderate compression fractures of T7 and T9 vertebral bodies. . Soft tissues: Unremarkable. IMPRESSION: 1. Multiple calcified granulomata in the lungs. 2. No acute findings in the lungs. 3. Moderate but old compression fractures involving T7 and T9 vertebral bodies 4. No pulmonary embolism. 5. A normal thoracic aorta. CT Angiography Abdomen and Pelvis With Contrast Exam date and time: 07/06/2020 1:54 PM Age: 75 years old Clinical indication: Other: Chest tighness, radiation to neck TECHNIQUE: Imaging protocol: Computed tomographic angiography of the abdomen and pelvis with intravenous contrast material. 3D rendering (Not supervised by radiologist): MIP and/or 3D reconstructed images were created by the technologist. Radiation optimization: All CT scans at this facility use at least one of these dose optimization techniques: automated exposure control; mA and/or kV adjustment per patient size (includes targeted exams where dose is matched to clinical indication); or iterative reconstruction. Contrast material: OMNIPAQUE 350; Contrast route: INTRAVENOUS (IV); COMPARISON: CT CHEST LUNG CANCER SCREEN 07/18/2019 2:17 PM FINDINGS: Aorta: No aortic aneurysm. No aortic dissection. Celiac trunk and mesenteric arteries: No occlusion or significant stenosis. Renal arteries: No occlusion or significant stenosis. Right iliac arteries: No occlusion or significant stenosis. Left iliac arteries: No occlusion or significant stenosis. Liver: No mass. Gallbladder and bile ducts: Unremarkable. No calcified stones. No ductal dilation. Pancreas: Unremarkable. No mass. No ductal dilation. Spleen: Unremarkable. No splenomegaly. Adrenals: Unremarkable. No mass. Kidneys and ureters: Unremarkable. No solid mass. No hydronephrosis. Stomach and bowel: Unremarkable. No obstruction. No mucosal thickening. Appendix: No evidence of appendicitis. Intraperitoneal space: Unremarkable. No free air. No significant fluid collection. Lymph nodes: Unremarkable. No enlarged lymph nodes. Urinary bladder: Unremarkable. No mass. Reproductive: Unremarkable as visualized. Bones/joints: No acute fracture. No dislocation. Soft tissues: Unremarkable. IMPRESSION: 1. Unremarkable CTA. No focal aneurysms or dissections of the abdominal aorta. No areas of stenosis or occlusions of the aorta and its branches. 2. No acute findings in the abdomen or pelvis Lab Data Lab results reviewed: Yes I reviewed the patient's lab results. Labs: Laboratory Tests Range/Units 07/06/20 07/06/20 07/06/20 12:12 12:12 12:12 WBC (4.4-10.8) 10^3/uL 7.08 RBC (3.93-5.22) 10^6/uL 4.46 Hgb (11.2-15.7) g/dL 14.8 Hct (36.0-46.0) % 43.2 MCV (80-95) fL 96.9 H MCH (27.0-33.0) pg 33.2 H MCHC (32.0-36.0) % 34.3 RDW (11.7-14.6) % 12.7 Plt Count (130-400) 10^3/uL 225 MPV (8.0-11.0) fL 10.2 Immature Gran % 0.3 Neutrophils % 62.1 Lymphocytes % 27.8 Monocytes % 6.1 Eosinophils % 2.3 Basophils % 1.4 Nucleated RBC % % 0 Absolute Neutrophils (1.2-6.7) 10^3/uL 4.40 Absolute Lymphocytes (1.2-3.4) 10^3/uL 1.97 Absolute Monocytes (0.1-0.8) 10^3/uL 0.43 Absolute Eosinophils (0.0-0.7) 10^3/uL 0.16 Absolute Basophils (0.0-0.2) 10^3/uL 0.10 PT (9.3-11.0) sec 10.3 INR (0.9-1.1) 1.0 APTT (21.0-27.5) sec 25.1 Sodium (136-145) mmol/L 140 Potassium (3.5-5.1) mmol/L 3.7 Chloride (98-107) mmol/L 104 Carbon Dioxide (21.0-32.0) mmol/L 23.9 Anion Gap (3-11) mmol/L 12.1 H BUN (7-18) mg/dL 12 Creatinine (0.55-1.02) mg/dL 0.88 Estimated GFR/1.73 m2 (mL/min/1.73m2) >= 60.00 Glucose (74-106) mg/dL 104 Calcium (8.5-10.1) mg/dL 8.8 Magnesium (1.8-2.4) mg/dL 2.1 Total Bilirubin (0.2-1.0) mg/dL 0.4 AST (15-37) U/L 12 L ALT (14-59) U/L 22 Alkaline Phosphatase (46-116) U/L 90 Troponin I (<0.06) ng/mL < 0.05 Total Protein (6.4-8.2) g/dL 6.5 Albumin (3.4-5.0) g/dL 3.6 Range/Units 07/06/20 15:05 WBC (4.4-10.8) 10^3/uL RBC (3.93-5.22) 10^6/uL Hgb (11.2-15.7) g/dL Hct (36.0-46.0) % MCV (80-95) fL MCH (27.0-33.0) pg MCHC (32.0-36.0) % RDW (11.7-14.6) % Plt Count (130-400) 10^3/uL MPV (8.0-11.0) fL Immature Gran % Neutrophils % Lymphocytes % Monocytes % Eosinophils % Basophils % Nucleated RBC % % Absolute Neutrophils (1.2-6.7) 10^3/uL Absolute Lymphocytes (1.2-3.4) 10^3/uL Absolute Monocytes (0.1-0.8) 10^3/uL Absolute Eosinophils (0.0-0.7) 10^3/uL Absolute Basophils (0.0-0.2) 10^3/uL PT (9.3-11.0) sec INR (0.9-1.1) APTT (21.0-27.5) sec Sodium (136-145) mmol/L Potassium (3.5-5.1) mmol/L Chloride (98-107) mmol/L Carbon Dioxide (21.0-32.0) mmol/L Anion Gap (3-11) mmol/L BUN (7-18) mg/dL Creatinine (0.55-1.02) mg/dL Estimated GFR/1.73 m2 (mL/min/1.73m2) Glucose (74-106) mg/dL Calcium (8.5-10.1) mg/dL Magnesium (1.8-2.4) mg/dL Total Bilirubin (0.2-1.0) mg/dL AST (15-37) U/L ALT (14-59) U/L Alkaline Phosphatase (46-116) U/L Troponin I (<0.06) ng/mL < 0.05 Total Protein (6.4-8.2) g/dL Albumin (3.4-5.0) g/dL ECG Data Attestation: I personally reviewed and interpreted this ECG (s) as follows: Interpretation: #1 -- rate of 84, sinus, no acute ST elevation or depression. CT 166. QRS 90. QTc 433. #2 -- rate of 70, sinus, no acute ST elevation or depression. CT 133. QRS 89. QTc 442. HPI General Mode of arrival: ambulatory . Date/Time Provider Initiated Documentation: 07/06/20 11:48 . Limitations to Documentation: no limitations . Information obtained by: patient . HPI Narrative: Patient is a 75-year-old female with a history of atrial fibrillation, anxiety, depression, hypertension, chronic tobacco smoker who presents for chest pain that started after going for a walk today. Patient states she walked 2 miles earlier today. She states 30 minutes after walking she drove to [place] and when she was sitting in her car developed anterior chest tightness. She states she felt the tightness radiated up into her neck causing a fullness. She denies any radiation to her back or jaw. She denies any fever, cough, shortness of breath, dizziness, nausea, vomiting, abdominal pain, aggravating or alleviating factors. She has not taken any medication for symptoms. She does admit to a similar episode occurring earlier this week while sitting at home that resolved on its own after 10 minutes. She states the pain has been present since onset and still is present at this time and is currently 6/10. Related Data Home Medications Medication Instructions Recorded Confirmed Eugenio Red 1 cap PO DAILY 10/07/12 07/06/20 acetaminophen [Tylenol Extra 500 mg PO PRN 10/07/12 07/06/20 Strength] ascorbic acid (vitamin C) [Vitamin 500 mg PO DAILY 10/07/12 07/06/20 C] ibuprofen [Motrin IB] 200 mg PO PRN 10/07/12 07/06/20 multivitamin [Once Daily] 1 tab PO DAILY 10/07/12 07/06/20 calcium carbonate [Caltrate 600] 600 mg PO BID 01/13/13 07/06/20 cholecalciferol (vitamin D3) 1,000 unit PO DAILY 01/13/13 07/06/20 Baby Aspirin 81 mg PO DAILY tab-cap 11/14/13 07/06/20 fluticasone propionate 50 2 spray HAYLEY DAILY PRN gm 07/08/18 07/06/20 mcg/actuation nasal spray,suspension albuterol sulfate 90 mcg/actuation 2 puff INHALATION Q4H PRN #8.5 gm 09/08/18 07/06/20 aerosol inhaler lidocaine [Lidoderm] 1 patch TP DAILY PRN #15 each 12/09/19 07/06/20 alendronate 70 mg tablet 70 mg PO QWEEK #13 tab 12/12/19 07/06/20 calcitonin (salmon) 200 1 spray INTRANA AL DAILY #3.7 ml 12/19/19 07/06/20 unit/actuation nasal spray metoprolol succinate 25 mg 12.5 mg PO DAILY #90 tab 01/12/20 07/06/20 tablet,extended release 24 hr lorazepam 0.5 mg tablet 0.5 mg PO BID PRN #30 tab 05/18/20 07/06/20 Previous Rx's Medication Instructions Recorded albuterol sulfate 90 mcg/actuation 2 puff INHALATION Q4H PRN #8.5 gm 09/08/18 aerosol inhaler lidocaine [Lidoderm] 1 patch TP DAILY PRN #15 each 12/09/19 alendronate 70 mg tablet 70 mg PO QWEEK #13 tab 12/12/19 calcitonin (salmon) 200 1 spray INTRANA AL DAILY #3.7 ml 12/19/19 unit/actuation nasal spray metoprolol succinate 25 mg 12.5 mg PO DAILY #90 tab 01/12/20 tablet,extended release 24 hr lorazepam 0.5 mg tablet 0.5 mg PO BID PRN #30 tab 05/18/20 Allergies Allergy/AdvReac Type Severity Reaction Status Date / Time doxycycline Allergy Mild Unverified 07/06/20 11:58 bupropion AdvReac Mild Unverified 07/06/20 11:58 guaifenesin AdvReac Mild Unverified 07/06/20 11:58 Sulfa (Sulfonamide AdvReac Unknown Nausea Unverified 07/06/20 11:58 Antibiotics) General Stated Complaint: Chest Pain DEVIN: 2 Review of Systems All systems reviewed & are unremarkable except as noted in HPI and below Constitutional Constitutional: Reports as per HPI, Denies chills and Denies fever(s) Eyes Eyes: Denies blurry vision ENT Ears, Nose, Mouth, and Throat: Denies dizziness, Denies sore throat and Denies throat swelling Cardiovascular Cardiovascular: Reports chest pain and Denies dyspnea Respiratory Respiratory: Denies cough and Denies dyspnea Gastrointestinal Gastrointestinal: Denies abdominal pain, Denies diarrhea and Denies vomiting Genitourinary Genitourinary: Denies hematuria and Denies dysuria Musculoskeletal Musculoskeletal: Denies back pain and Denies numbness Integumentary/Breasts Skin/Breast: Denies lesions and Denies rash Neurologic Neurologic: Denies dizziness, Denies localized weakness and Denies numbness Allergic/Immunologic Allergic/Immunologic: Denies throat swelling [facility] Medical History (Updated 07/06/20 @ 15:09 by Romina Saldaña DO) Abnormal laboratory test result Breast lump (11/02/02) Closed fracture of rib Depressive disorder Eczema of hand (12/18/14) Essential hypertension (04/20/13) Foot pain, right Grief (12/18/14) Hiatal hernia (09/02/01) EGD CONFIRMED. NORMAL BARIUM SWALLOW History of echocardiogram Hypokalemia (06/17/12) Onychomycosis (02/02/17) Osteoporosis (09/02/01) T -4.5 Paroxysmal atrial fibrillation Smoker (07/25/08) Standard chest x-ray abnormal Surgical History section (05/19/75) Colonoscopy - MAC (06/08/07) ECHO (10/15/12) PAROXYSMAL A-FIB ([facility]) EGD - MAC (~2001) HH History of section History of esophagogastroduodenoscopy Family History Mother , 97 Rectal cancer Father , 75 COPD (chronic obstructive pulmonary disease) Sister , 73 Neoplasm BREAST Breast cancer Sister Diabetes COPD (chronic obstructive pulmonary disease) Hyperlipidemia Brother Essential hypertension Hyperlipidemia Maternal Grandfather , 73 Depression Paternal Grandfather , 73 Stroke Maternal Grandmother , 65 Lung cancer Paternal Grandmother , 78 No problems noted. Son No problems noted. Daughter No problems noted. Social History (Updated 01/20/19 @ 13:23 by Sanford Almonte) Smoking/Tobacco Use Status: Current every day Tobacco Type: cigarettes Second Hand Exposure: Yes Smoking risk assessment performed?: Yes Alcohol Intake: current Alcohol Intake frequency: 0-2 drinks per day Alcohol type: beer Drug use: Never Substance use type: does not use Caregiver/Support person: No Household members: none Housing: apartment Communication Needs: Corrective Lenses Do you need help understanding health information?: Rarely Pets and animals: Yes Pets and animals: cat(s) Sexually active: No Do you think of yourself as: straight/heterosexual Current gender identity: female What is your relationship status?: How often do you talk on the phone with friends or family?: twice per week How often do you get together with friends or relatives?: twice per week How often do you attend anabaptist or restoration services?: 4 or more times per year Do you belong to any clubs or organized social groups?: no Panel score (0-1 are the most socially isolated patients): 2 What type of physical activity do you participate in: walking and other Details: Murphy Ball, Bill [place], stationary bike Duration: 15-30 minutes/day Frequency: 3-4 times per week Komal/Religious: Gnosticist Special komal needs: No Seatbelt use: always Drive intox or ride w/intox power truck 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: No Do you feel safe at home: Yes Do you feel safe in your relationship?: Yes Exam Const General: cooperative and no acute distress Nutritional Appearance: thin Orientation: alert, awake and oriented x3 HENMT Head: normal to inspection Face and sinus: normal facial exam Eyes General: appearance normal, both eyes and all related structures EOM: EOM intact bilaterally Neck Neck: normal visual inspection and No submandibular swelling Lymphatic: no lymphadenopathy noted Chest Chest: normal inspection of the chest and no tenderness Resp Effort & Inspection: normal respiratory effort and able to speak in complete sentences Auscultation: clear to auscultation bilaterally Cardio Rate: regular rate Rhythm: regular rhythm GI Inspection: normal to inspection Palpation: soft, not firm, not rigid and nontender Auscultation: normal bowel sounds Skin General skin exam: no rashes or lesions noted Neuro General: patient alert, patient awake and patient oriented x3 Cognition: normal cognition Speech: speech normal Motor: muscle tone normal throughout Sensory Exam: no sensory deficits noted Extrem General: normal to inspection, full ROM, capillary refill normal, no calf tenderness bilaterally and no edema Psych Appearance: grossly normal Mental Status: mental status grossly normal Speech and Movement: speech and movement normal Affect: normal affect Course Vital Signs Vital signs: Vital Signs Temperature 97.7 F 07/06/20 11:54 Pulse 96 H 07/06/20 11:54 Respiratory Rate 17 07/06/20 11:54 Blood Pressure 142/96 H 07/06/20 11:54 Pulse Oximetry 98 07/06/20 11:54 Temperature 97.7 F 07/06/20 11:54 Temperature Source Skin 07/06/20 11:54 Pulse 96 H 07/06/20 11:54 Respiratory Rate 17 07/06/20 11:54 Respiratory Effort Non-Labored 07/06/20 11:56 Blood Pressure 142/96 H 07/06/20 11:54 Blood Pressure Position Supine 07/06/20 11:54 Pulse Oximetry 98 07/06/20 11:54 Oxygen Delivery Method Room Air 07/06/20 11:54 Oxygen Flow Rate 0 07/06/20 11:54 Pain Level 7 07/06/20 11:54
[2020-07-06 12:16] LABS: Abs Immature Grans 0.02 10^3/uL (0.0-0.06); Absolute Eosinophil Count 0.16 10^3/uL (0.0-0.7); Absolute Lymphocyte Count 1.97 10^3/uL (1.2-3.4); Absolute Monocyte Count 0.43 10^3/uL (0.1-0.8); Basophils % 1.4; Eosinophils % 2.3; HCT 43.2 % (36.0-46.0); HGB 14.8 g/dL (11.2-15.7); Immature Grans % 0.3; Lymphocytes % 27.8; MCH 33.2 pg (27.0-33.0); MCHC 34.3 % (32.0-36.0); MCV 96.9 fL (80-95); MPV 10.2 fL (8.0-11.0); Monocytes % 6.1; Neutrophils % 62.1; Nucleated RBC 0 %; Platelet Count 225 10^3/uL (130-400); RBC 4.46 10^6/uL (3.93-5.22); RDW 12.7 % (11.7-14.6); RDW-SD 45.6 fL; WBC 7.08 10^3/uL (4.4-10.8)
[2020-07-06 12:33] LABS: PTT Activated 25.1 sec (21.0-27.5); Prothrombin Time 10.3 sec (9.3-11.0)
[2020-07-06 12:42] LABS: ALT 22 U/L (14-59); AST 12 U/L (15-37); Albumin 3.6 g/dL (3.4-5.0); Alkaline Phosphatase 90 U/L (46-116); Anion Gap 12.1 mmol/L (3-11); BUN 12 mg/dL (7-18); Bilirubin, Total 0.4 mg/dL (0.2-1.0); CO2 23.9 mmol/L (21.0-32.0); CREATININE 0.88 mg/dL (0.55-1.02); Calcium 8.8 mg/dL (8.5-10.1); Chloride 104 mmol/L (98-107); Glucose 104 mg/dL (74-106); Magnesium 2.1 mg/dL (1.8-2.4); Potassium 3.7 mmol/L (3.5-5.1); Sodium 140 mmol/L (136-145); Total Protein 6.5 g/dL (6.4-8.2)
[2020-07-06 12:43] LABS: Troponin I < 0.05 ng/mL (<0.06)
[2020-07-06] MEDS: Normal Saline 500 ML IV (13:01)
[2020-07-06] MEDS: FAMOTIDINE 20 MG/50 ML BAG 200 MG IVPB (13:03)
[2020-07-06] MEDS: Omnipaque 350 MG/ML 100 ML BTL IJ (14:00)
[2020-07-06] MEDS: Normal Saline - Diluent 50 ML VIAL IV (14:01)
[2020-07-06] MEDS: Normal Saline Flush 10 ML SYR IVP ×2 (14:01→20:39)
--- NOTE | 2020-07-06 14:10 | DI.CT_ITS ---
EXAM: CT THORAX ABD/PEL CTA TECHNIQUE: CT angiography of the chest, abdomen and pelvis was performed with bolus infusion of 100 cc of Omnipaque 350. Axial CT angiography was performed with multi-slice acquisition and multi-planar and/or 3D reconstruc tions. COMPARISON: CT RENAL COLIC WO CONTRAST from 09/21/2016 FINDINGS: The lungs are predominantly clear with multiple small calcified pulmonary granulomas noted. Mild po sterior basilar pulmonary scarring also noted. Old T7 and T9 anterior compression fractures noted. No pleural effusion. No evidence of pulmonary embolic disease. No thoracic aortic dissection or aneur ysm. Major branches of the thoracic aorta appear normal. No pleural effusion. No mediastinal or jem r adenopathy. Tracheobronchial tree appears intact. No focal hepatic or renal abnormality seen. Gallbladder and bile ducts are CT normal. Pancreas is unr emarkable. Spleen shows unremarkable early arterial phase pattern of enhancement. No abdominal aortic aneurysm or dissection. Major branches of the abdominal aorta appear normal. No a bdominal or pelvic adenopathy. Normal appendix. No significant abdominal wall hernia. No focal bowel pathology. IMPRESSION: No evidence of acute vascular abnormality of the chest, abdomen or pelvis. No other abnormalities are seen. RADIATION DOSE DELIVERED: 733.64mGy.cm Total DLP 733.64mGy.cm Total DLP DATA REPOSITORY: All CT scans at this facility are submitted to the National Radiology Data Registry (NRDR) Dose Index Registry (DIR) with the [employer] ([employer]). RADIATION OPTIMIZATION: All CT scans at this facility use at least one of these dose optimization te chniques: automated exposure control; mA and/or kV adjustment per patient size (includes targeted exa ms where dose is matched to clinical indication); or iterative reconstruction.
--- NOTE | 2020-07-06 14:35 | DI.VRAD_ITS ---
PROCEDURE INFORMATION: Exam: CT Angiography Chest With Contrast Exam date and time: 07/06/2020 1:54 PM Age: 75 years old Clinical indication: Other: Chest tighness, radiation to neck TECHNIQUE: Imaging protocol: Computed tomographic angiography of the chest with intravenous contrast. 3D rendering (Not supervised by radiologist): MIP and/or 3D reconstructed images were created by the technologist. Radiation optimization: All CT scans at this facility use at least one of these dose optimization techniques: automated exposure control; mA and/or kV adjustment per patient size (includes targeted exams where dose is matched to clinical indication); or iterative reconstruction. Contrast material: OMNIPAQUE 350; Contrast volume: 100 ml; Contrast route: INTRAVENOUS (IV); COMPARISON: CT CHEST LUNG CANCER SCREEN 07/18/2019 2:17 PM FINDINGS: Pulmonary arteries: Normal. No pulmonary emboli. Aorta: Unremarkable. No aortic aneurysm. No aortic dissection. No ground-glass opacities or consolidations Lungs: Unremarkable. No consolidation. No masses. Calcified granulomata in the right middle lobe , the right lower lobe, the left lower lobe and the left upper lobe. Areas of fibrosis in both lower lobes Pleural space: Unremarkable. No pneumothorax. No pleural effusion. Heart: Unremarkable. No cardiomegaly. No pericardial effusion. Lymph nodes: Unremarkable. No enlarged lymph nodes. Bones/joints: Moderate compression fractures of T7 and T9 vertebral bodies. . Soft tissues: Unremarkable. IMPRESSION: 1. Multiple calcified granulomata in the lungs. 2. No acute findings in the lungs. 3. Moderate but old compression fractures involving T7 and T9 vertebral bodies 4. No pulmonary embolism. 5. A normal thoracic aorta. PROCEDURE INFORMATION: Exam: CT Angiography Abdomen and Pelvis With Contrast Exam date and time: 07/06/2020 1:54 PM Age: 75 years old Clinical indication: Other: Chest tighness, radiation to neck TECHNIQUE: Imaging protocol: Computed tomographic angiography of the abdomen and pelvis with intravenous contrast material. 3D rendering (Not supervised by radiologist): MIP and/or 3D reconstructed images were created by the technologist. Radiation optimization: All CT scans at this facility use at least one of these dose optimization techniques: automated exposure control; mA and/or kV adjustment per patient size (includes targeted exams where dose is matched to clinical indication); or iterative reconstruction. Contrast material: OMNIPAQUE 350; Contrast route: INTRAVENOUS (IV); COMPARISON: CT CHEST LUNG CANCER SCREEN 07/18/2019 2:17 PM FINDINGS: Aorta: No aortic aneurysm. No aortic dissection. Celiac trunk and mesenteric arteries: No occlusion or significant stenosis. Renal arteries: No occlusion or significant stenosis. Right iliac arteries: No occlusion or significant stenosis. Left iliac arteries: No occlusion or significant stenosis. Liver: No mass. Gallbladder and bile ducts: Unremarkable. No calcified stones. No ductal dilation. Pancreas: Unremarkable. No mass. No ductal dilation. Spleen: Unremarkable. No splenomegaly. Adrenals: Unremarkable. No mass. Kidneys and ureters: Unremarkable. No solid mass. No hydronephrosis. Stomach and bowel: Unremarkable. No obstruction. No mucosal thickening. Appendix: No evidence of appendicitis. Intraperitoneal space: Unremarkable. No free air. No significant fluid collection. Lymph nodes: Unremarkable. No enlarged lymph nodes. Urinary bladder: Unremarkable. No mass. Reproductive: Unremarkable as visualized. Bones/joints: No acute fracture. No dislocation. Soft tissues: Unremarkable. IMPRESSION: 1. Unremarkable CTA. No focal aneurysms or dissections of the abdominal aorta. No areas of stenosis or occlusions of the aorta and its branches. 2. No acute findings in the abdomen or pelvis Dictated and Authenticated by: Cali Diehl MD. Ordering:MARTIN Vanegas MD
--- NOTE | 2020-07-06 14:45 | RT.EKG_ITS ---
APPROVED REPORT Exam: Resting ECG Patient Location: E HR:70 bpm ECG Measurements Heart Rate 70 AXIS ND 133 P 54 QRSd 89 QRS -37 QT 410 T 40 QTc 442 Conclusion Sinus rhythm...normal P axis, V-rate 60- 99 Left axis deviation...QRS axis (-30,-90) I have reviewed and interpreted ECG and agree with software generated interpretation.
[2020-07-06 15:30] LABS: Troponin I < 0.05 ng/mL (<0.06)
[2020-07-06] MEDS: ACETAMINOPHEN 1,000 MG/100 ML BTL 400 MG IVPB (15:33)
[2020-07-06] MEDS: Aspirin 325 MG TAB PO (15:33)
--- NOTE | 2020-07-06 16:07 | NUR.NOTE ---
Nursing Note: As there was no care tech for COVID testing today, COVID test ordered as in house, per Dr. Daniels's conversation with lab this morning.
[2020-07-06 16:11] LABS: Source Nasopharynx
[2020-07-06 16:51] LABS: Influenza A PCR Negative (Negative); Influenza B PCR Negative (Negative); RSV PCR Negative (Negative)
[2020-07-06 16:54] LABS: COVID-19 PCR Negative (Negative)
[2020-07-06] MEDS: Enoxaparin 40 MG/0.4 ML SYR SC (17:59)
[2020-07-06 18:08] LABS: Troponin I < 0.05 ng/mL (<0.06)
--- NOTE | 2020-07-06 18:40 | HPE_ITS ---
Date of service: 07/06/20 Time of Service: 18:41 Assessment and Plan Assessment and plan (1) Atypical chest pain: Status: Acute Assessment and plan: Continue aspirin 81 mg daily along with her metoprolo l. I will keep her on an H2 emiliana monitor her rhythm overnight. If there is no arrhythmias and no further chest pain and no troponin leak then we will plan for discharge in the morning with follow-up stress MPI study next week. We will check a lipid profile and glycohemoglobin A1c for further risk factor reduction. Patient is encouraged to quit smoking. She apparently has been smoking for at least 50 years. (2) Paroxysmal atrial fibrillation: Status: Chronic Assessment and plan: Currently in sinus rhythm well controlled with metoprolol. Patient had been offered anticoagulation by her linux support engineer but declined when she heard the risks of internal bleeding. She just takes an aspirin 81 mg daily. (3) Essential hypertension: Status: Chronic Assessment and plan: Continue home dose of metoprolol History of Present Illness History of Present Illness Chief Complaint: Chest pain Narrative: 5yo female with a history of paroxysmal atrial fibrillation, anxiety, depression, hypertension, chronic tobacco smoker presents for chest tightness with radiation to her neck causing fullness that occurred 30 minutes after going for a 2 mile walk today. Patient had complete her walk and had no symptoms during her walk but while driving to [employer] she noticed chest tightness that radiated up into her anterior neck associated with some mild shortness of breath. She drove herself to the hospital where she was evaluated the emergency department clued routine labs, EKG, CT of the chest. Serial EKGs were performed beginning at 11:54 AM with repeat 1 done at 12:07 PM and the last one was performed at 1532. She had no dynamic ST changes. Rhythm was sinus rhythm with a left axis deviation that varied between -31 -45 degrees. Not quite qualifying for left anterior fascicular block. Serial troponin I levels x3 have been checked and all were negative. CBC was remarkable for borderline macrocytosis with an MCV of 96 but no anemia and no leukocytosis. CMP was unremarkable. CT of the chest abdomen pelvis was performed. She has old compression fractures at T7 and T9 but normal thoracic aorta no pulmonary embolism and multiple calcified granulomata in the lungs. Patient was treated in the emergency department with IV Pepcid along with viscous lidocaine and simethicone and antiacid cocktail mix and Tylenol. She was given an aspirin 325 mg p.o. patient's admitted for observation because of her age and multiple risk factors for coronary artery disease. Is recommended that the patient get an outpatient stress MPI next week. Review of Systems All systems reviewed & are unremarkable except as noted in HPI and below [facility] Medical History (Updated 07/06/20 @ 19:17 by Kenny Pollard) Abnormal laboratory test result Breast lump (11/02/02) Closed fracture of rib Depressive disorder Eczema of hand (12/18/14) Essential hypertension (04/20/13) Foot pain, right Grief (12/18/14) Hiatal hernia (09/02/01) EGD CONFIRMED. NORMAL BARIUM SWALLOW History of echocardiogram Hypokalemia (06/17/12) Onychomycosis (02/02/17) Osteoporosis (09/02/01) T -4.5 Paroxysmal atrial fibrillation Smoker (07/25/08) Standard chest x-ray abnormal Surgical History section (05/19/75) Colonoscopy - MAC (06/08/07) ECHO (10/15/12) PAROXYSMAL A-FIB ([facility]) EGD - MAC (~2001) HH History of section History of esophagogastroduodenoscopy Family History Mother , 97 Rectal cancer Father , 75 COPD (chronic obstructive pulmonary disease) Sister , 73 Neoplasm BREAST Breast cancer Sister Diabetes COPD (chronic obstructive pulmonary disease) Hyperlipidemia Brother Essential hypertension Hyperlipidemia Maternal Grandfather , 73 Depression Paternal Grandfather , 73 Stroke Maternal Grandmother , 65 Lung cancer Paternal Grandmother , 78 No problems noted. Son No problems noted. Daughter No problems noted. Social History Smoking/Tobacco Use Status: Current every day Tobacco Type: cigarettes Second Hand Exposure: Yes Smoking risk assessment performed?: Yes Alcohol Intake: current Alcohol Intake frequency: 0-2 drinks per day Alcohol type: beer Drug use: Never Substance use type: does not use Caregiver/Support person: No Household members: none Housing: apartment Communication Needs: Corrective Lenses Do you need help understanding health information?: Rarely Pets and animals: Yes Pets and animals: cat(s) Sexually active: No Do you think of yourself as: straight/heterosexual Current gender identity: female What is your relationship status?: How often do you talk on the phone with friends or family?: twice per week How often do you get together with friends or relatives?: twice per week How often do you attend yarsanism or denominational services?: 4 or more times per year Do you belong to any clubs or organized social groups?: no Panel score (0-1 are the most socially isolated patients): 2 What type of physical activity do you participate in: walking and other Details: Murphy Ball, Bill Chi, stationary bike Duration: 15-30 minutes/day Frequency: 3-4 times per week Komal/Tenriism: Yarsani Special komal needs: No Seatbelt use: always Drive intox or ride w/intox over the road driver: No Do you feel safe at home: Yes Do you feel safe in your relationship?: Yes Meds Home Medications and Allergies Home Medications Medication Instructions Recorded Confirmed Type Eugenio Red 1 cap PO DAILY 10/07/12 07/06/20 History acetaminophen [Tylenol Extra 500 mg PO PRN 10/07/12 07/06/20 History Strength] ascorbic acid (vitamin C) [Vitamin 500 mg PO DAILY 10/07/12 07/06/20 History C] ibuprofen [Motrin IB] 200 mg PO PRN 10/07/12 07/06/20 History multivitamin [Once Daily] 1 tab PO DAILY 10/07/12 07/06/20 History calcium carbonate [Caltrate 600] 600 mg PO BID 01/13/13 07/06/20 History cholecalciferol (vitamin D3) 1,000 unit PO DAILY 01/13/13 07/06/20 History Baby Aspirin 81 mg PO DAILY tab-cap 11/14/13 07/06/20 History fluticasone propionate 50 2 spray HAYLEY DAILY PRN gm 07/08/18 07/06/20 History mcg/actuation nasal spray,suspension albuterol sulfate 90 mcg/actuation 2 puff INHALATION Q4H PRN #8.5 gm 09/08/18 07/06/20 Rx aerosol inhaler lidocaine [Lidoderm] 1 patch TP DAILY PRN #15 each 12/09/19 07/06/20 Rx alendronate 70 mg tablet 70 mg PO QWEEK #13 tab 12/12/19 07/06/20 Rx calcitonin (salmon) 200 1 spray INTRANA AL DAILY #3.7 ml 12/19/19 07/06/20 Rx unit/actuation nasal spray metoprolol succinate 25 mg 12.5 mg PO DAILY #90 tab 01/12/20 07/06/20 Rx tablet,extended release 24 hr lorazepam 0.5 mg tablet 0.5 mg PO BID PRN #30 tab 05/18/20 07/06/20 Rx Allergies Allergy/AdvReac Type Severity Reaction Status Date / Time doxycycline Allergy Mild Unverified 07/06/20 11:58 bupropion AdvReac Mild Unverified 07/06/20 11:58 guaifenesin AdvReac Mild Unverified 07/06/20 11:58 Sulfa (Sulfonamide AdvReac Unknown Nausea Unverified 07/06/20 11:58 Antibiotics) Exam Narrative Exam Narrative: Thin elderly female sitting up in her bed. She is alert and oriented person place time circumstance no acute distress. HEENT is unremarkable Neck is supple nontender no JVD no thyromegaly no cervical lymphadenopathy no bruits Lungs are clear to auscultation Heart regular rate and rhythm without murmur rub or gallop Abdomen soft nontender no organomegaly no palpable masses no bruits Extremities without peripheral cyanosis or edema. Normal range of motion and strength. Neuro exam grossly intact. Genitalia rectal exam deferred. Breast exam deferred. Results Labs Result diagrams: 07/06/20 12:12 07/06/20 12:12 Labs: Laboratory Results - last 24 hr 07/06/20 07/06/20 07/06/20 12:12 12:12 12:12 WBC 7.08 RBC 4.46 Hgb 14.8 Hct 43.2 MCV 96.9 H MCH 33.2 H MCHC 34.3 RDW 12.7 Plt Count 225 MPV 10.2 Immature Gran % 0.3 Neutrophils % 62.1 Lymphocytes % 27.8 Monocytes % 6.1 Eosinophils % 2.3 Basophils % 1.4 Nucleated RBC % 0 Absolute Neutrophils 4.40 Absolute Lymphocytes 1.97 Absolute Monocytes 0.43 Absolute Eosinophils 0.16 Absolute Basophils 0.10 PT 10.3 INR 1.0 APTT 25.1 Sodium 140 Potassium 3.7 Chloride 104 Carbon Dioxide 23.9 Anion Gap 12.1 H BUN 12 Creatinine 0.88 Estimated GFR/1.73 m2 >= 60.00 Glucose 104 Calcium 8.8 Magnesium 2.1 Total Bilirubin 0.4 AST 12 L ALT 22 Alkaline Phosphatase 90 Troponin I < 0.05 Total Protein 6.5 Albumin 3.6 COVID-19 Source SARS-CoV-2 (PCR) Nasopharyn COVID-19 PCR Influenza Type A (PCR) Influenza Type B (PCR) RSV (PCR) Ref Test Perform Site 07/06/20 07/06/20 07/06/20 15:05 15:54 16:07 WBC RBC Hgb Hct MCV MCH MCHC RDW Plt Count MPV Immature Gran % Neutrophils % Lymphocytes % Monocytes % Eosinophils % Basophils % Nucleated RBC % Absolute Neutrophils Absolute Lymphocytes Absolute Monocytes Absolute Eosinophils Absolute Basophils PT INR APTT Sodium Potassium Chloride Carbon Dioxide Anion Gap BUN Creatinine Estimated GFR/1.73 m2 Glucose Calcium Magnesium Total Bilirubin AST ALT Alkaline Phosphatase Troponin I < 0.05 Total Protein Albumin COVID-19 Source Nasopharynx SARS-CoV-2 (PCR) Cancelled Negative Nasopharyn COVID-19 PCR Cancelled Influenza Type A (PCR) Negative Influenza Type B (PCR) Negative RSV (PCR) Negative Ref Test Perform Site Cancelled 07/06/20 07/06/20 16:09 17:41 WBC RBC Hgb Hct MCV MCH MCHC RDW Plt Count MPV Immature Gran % Neutrophils % Lymphocytes % Monocytes % Eosinophils % Basophils % Nucleated RBC % Absolute Neutrophils Absolute Lymphocytes Absolute Monocytes Absolute Eosinophils Absolute Basophils PT INR APTT Sodium Potassium Chloride Carbon Dioxide Anion Gap BUN Creatinine Estimated GFR/1.73 m2 Glucose Calcium Magnesium Total Bilirubin AST ALT Alkaline Phosphatase Troponin I < 0.05 Total Protein Albumin COVID-19 Source Cancelled SARS-CoV-2 (PCR) Cancelled Nasopharyn COVID-19 PCR Influenza Type A (PCR) Cancelled Influenza Type B (PCR) Cancelled RSV (PCR) Cancelled Ref Test Perform Site Last Vital Signs Temp 35.9 C L 07/06/20 16:29 Pulse 63 07/06/20 16:29 Resp 18 07/06/20 16:29 BP 150/96 H 07/06/20 16:29 Pulse Ox 93 07/06/20 16:29 COVID-19 Screening Have you, or household traveled for leisure in last 14 days?: No Had IN PERSON contact w/suspected or confirmed C-19 person: No
[2020-07-06] MEDS: Acetaminophen 325 MG TAB PO (20:37)
[2020-07-06] MEDS: Famotidine 20 MG TAB PO (20:37)
[2020-07-06] MEDS: Nicotine 21 MG/24 HR PATCH TD (20:38)
[2020-07-06] MEDS: Metoprolol CR 25 MG TABCR 12.5 MG PO (22:08)
[2020-07-07 03:30] VITALS: BP 144/92; PULSE 67; RESP 16; TEMP 36.7; O2SAT 94
[2020-07-07 07:21] VITALS: BP 149/101; PULSE 70; RESP 17; TEMP 36.6; O2SAT 97
[2020-07-07] MEDS: Aspirin E.C. 81 MG TABEC PO (07:50)
[2020-07-07] MEDS: Famotidine 20 MG TAB PO (07:50)
[2020-07-07 08:06] LABS: Calculated LDL 99 mg/dL (<100); Cholesterol 174 mg/dL (<200); HDL Cholesterol 62 mg/dL (40-60); Triglyceride 67 mg/dL (<150)
[2020-07-07 08:32] VITALS: PULSE 75
--- NOTE | 2020-07-07 09:51 | DSE_ITS ---
Date of service: 07/07/20 Time of Service: 09:55 DS: Diagnosis Discharge Diagnosis (1) Atypical chest pain: Status: Acute (2) Paroxysmal atrial fibrillation: Status: Chronic (3) Essential hypertension: Status: Chronic Discharge Plan Disposition Patient Disposition: HOME Condition: Good Discharge Details Reason For Visit: CHEST PAIN RULE OUT ACS, TOBACCO SMOKER Admit Date/Time: 07/06/20 15:32 Admit Provider: Kenny Pollard Attending Provider: Kenny Pollard Primary Care Provider: Annie Min Hospital Course Hospital Course: This is a 75 yo female with a history of paroxysmal atrial fibrillation, anxiety, depression, hypertension, chronic tobacco smoker presents for chest tightness with radiation to her neck causing fullness that occurred 30 minutes after going for a 2 mile walk today. Patient had complete her walk and had no symptoms during her walk but while driving to [place] she noticed chest tightness that radiated up into her anterior neck associated with some mild shortness of breath. She had a similar incident while sitting quietly in a chair at home. That episode subsided after appx 5 mins. With the current occurence she drove herself to the hospital where she was evaluated the emergency department clued routine labs, EKG, CT of the chest. Serial EKGs were performed beginning at 11:54 AM with repeat 1 done at 12:07 PM and the last one was performed at 1532. She had no dynamic ST changes. Rhythm was sinus rhythm with a left axis deviation that varied between -31 -45 degrees. Not quite qualifying for left anterior fascicular block. Serial troponin I levels x3 were negative. CBC was remarkable for borderline macrocytosis with an MCV of 96 but no anemia and no leukocytosis. CMP was unremarkable. CT of the chest abdomen pelvis was performed. She has old compression fractures at T7 and T9 but normal thoracic aorta no pulmonary embolism and multiple calcified granulomata in the lungs. Patient was treated in the emergency department with IV Pepcid along with viscous lidocaine and simethicone and antiacid cocktail mix and Tylenol. She was given an aspirin 325 mg p.o. patient's admitted for observation because of her age and multiple risk factors for coronary artery disease. She had no recurrence of the chest pain during the period of observation. She remained in a normal sinus rhythm. Differential diagnosis remains atypical angina vs myofascial pain vs silent reflux with esophageal spasm. If nuclear medicine stress testing is normal, then a month long trial of acid suppression could be warranted. Schedule outpatient nuclear medicine cardiac stress test. F/U with PCP in 1-2 weeks. Home Meds and New Rx's Prescriptions: New nicotine 21 mg/24 hr Patch 24 Hour 21 mg transdermal DAILY PRN PRNQty: 0 RF: 0 Continued fluticasone propionate 50 mcg/actuation spray,suspension 2 spray HAYLEY DAILY PRNRF: 0 alendronate 70 mg tablet 70 mg PO QWEEK Qty: 13 RF: 4 metoprolol succinate 25 mg tablet extended release 24 hr 12.5 mg PO DAILY Qty: 90 RF: 12 calcitonin (salmon) 200 unit/actuation spray,non-aerosol 1 spray INTRANA AL DAILY Qty: 3.7 RF: 3 multivitamin [Once Daily] 1 EACH tablet 1 tab PO DAILY RF: 0 acetaminophen [Tylenol Extra Strength] 500 MG tablet 500 mg PO PRN RF: 0 ascorbic acid (vitamin C) [Vitamin C] 500 MG tablet 500 mg PO DAILY RF: 0 ibuprofen [Motrin IB] 200 MG tablet 200 mg PO PRN RF: 0 JOHANNA RED 1 cap PO DAILY RF: 0 BABY ASPIRIN 81 MG TAB.CHEW 81 mg PO DAILY RF: 0 albuterol sulfate [ProAir HFA] 90 mcg/actuation HFA aerosol inhaler 2 puff Inhalation Q4H PRN Qty: 8.5 RF: 7 lorazepam 0.5 mg tablet 0.5 mg PO BID PRN (Reason: agitation) Qty: 30 RF: 0 calcium carbonate [Caltrate 600] 600 MG tablet 600 mg PO BID RF: 0 cholecalciferol (vitamin D3) 1,000 UNITS tablet 1,000 unit PO DAILY RF: 0 lidocaine [Lidoderm] 5 % adhesive patch,medicated 1 patch TP DAILY PRN (Reason: pain) Qty: 15 RF: 0 Discharge Instructions Instructions: Hypertension (GEN) Activity:: Activity as Tolerated Equipment/Supplies:: No Equipment Needed Diet:: Low Sodium DS: Summary Status at Discharge Functional status at discharge: independent ambulation Overall status at discharge: patient is back to baseline Mental Status: mental status grossly normal Speech and Movement: speech and movement normal Mood: congruent mood Affect: normal affect Exam Const General: cooperative and no acute distress Nutritional Appearance: thin Orientation: alert and oriented x3 Neck Neck: no JVD Chest Chest: no tenderness Resp Effort & Inspection: normal respiratory effort Auscultation: clear to auscultation bilaterally Cardio Rate: regular rate Rhythm: regular rhythm Heart Sounds: S1 normal and S2 normal GI Palpation: soft and nontender Extrem General: no pedal edema and no calf tenderness Psych Appearance: grossly normal Mental Status: mental status grossly normal Speech and Movement: speech and movement normal Mood: congruent mood Affect: normal affect DS: Data Vitals/I&O Vitals and I&O: Vital Signs Temperature 36.6 C 07/07/20 07:21 Temperature Source Tympanic 07/07/20 07:21 Pulse 75 07/07/20 08:32 Pulse Rhythm Regular 07/07/20 07:55 Pulse 73 07/06/20 15:40 Respiratory Rate 17 07/07/20 07:21 Respiratory Effort Non-Labored 07/07/20 07:55 Respiratory Depth Normal 07/07/20 07:55 Respiratory Pattern Normal 07/07/20 07:55 Blood Pressure 149/101 H 07/07/20 07:21 Blood Pressure Mean 109 07/06/20 15:38 Blood Pressure Position Supine 07/06/20 11:54 Pulse Oximetry 97 07/07/20 07:21 Oxygen Delivery Method Room Air 07/07/20 07:21 Oxygen Flow Rate 0 07/07/20 07:21 Pain Level 4 07/07/20 07:21 Comment 07/07/20 03:30 Intake & Output 07/06/20 07/06/20 07/07/20 11:59 23:59 11:59 Intake Total 650 / 650 300 / 300 Output Total 900 / 900 900 / 900 Balance -250 / -250 -600 / -600 Weight 55.9 kg 53.3 kg Intake: IV 650 / 650 Oral 300 / 300 Output: Urine 900 / 900 900 / 900 Other: Urine Color Yellow Yellow Urine Appearance Clear Clear Urine Odor None Normal Voiding Methods Toilet Toilet Data Completed and Pending Labs on day of discharge: Labs from last 24 hours 07/07/20 07/07/20 07/06/20 06:08 06:08 17:41 WBC RBC Hgb Hct MCV MCH MCHC RDW Plt Count MPV Immature Gran % Neutrophils % Lymphocytes % Monocytes % Eosinophils % Basophils % Nucleated RBC % Absolute Neutrophils Absolute Lymphocytes Absolute Monocytes Absolute Eosinophils Absolute Basophils PT INR APTT Sodium Potassium Chloride Carbon Dioxide Anion Gap BUN Creatinine Estimated GFR/1.73 m2 Glucose Hemoglobin A1c Pending Calcium Magnesium Total Bilirubin AST ALT Alkaline Phosphatase Troponin I < 0.05 Total Protein Albumin Triglycerides 67 Total Cholesterol 174 LDL Cholesterol, Calc 99 HDL Cholesterol 62 COVID-19 Source SARS-CoV-2 (PCR) Nasopharyn COVID-19 PCR Influenza Type A (PCR) Influenza Type B (PCR) RSV (PCR) Ref Test Perform Site 07/06/20 07/06/20 07/06/20 16:09 16:07 15:54 WBC RBC Hgb Hct MCV MCH MCHC RDW Plt Count MPV Immature Gran % Neutrophils % Lymphocytes % Monocytes % Eosinophils % Basophils % Nucleated RBC % Absolute Neutrophils Absolute Lymphocytes Absolute Monocytes Absolute Eosinophils Absolute Basophils PT INR APTT Sodium Potassium Chloride Carbon Dioxide Anion Gap BUN Creatinine Estimated GFR/1.73 m2 Glucose Hemoglobin A1c Calcium Magnesium Total Bilirubin AST ALT Alkaline Phosphatase Troponin I Total Protein Albumin Triglycerides Total Cholesterol LDL Cholesterol, Calc HDL Cholesterol COVID-19 Source Cancelled Nasopharynx SARS-CoV-2 (PCR) Cancelled Negative Cancelled Nasopharyn COVID-19 PCR Cancelled Influenza Type A (PCR) Cancelled Negative Influenza Type B (PCR) Cancelled Negative RSV (PCR) Cancelled Negative Ref Test Perform Site Cancelled 07/06/20 07/06/20 07/06/20 15:05 12:12 12:12 WBC 7.08 RBC 4.46 Hgb 14.8 Hct 43.2 MCV 96.9 H MCH 33.2 H MCHC 34.3 RDW 12.7 Plt Count 225 MPV 10.2 Immature Gran % 0.3 Neutrophils % 62.1 Lymphocytes % 27.8 Monocytes % 6.1 Eosinophils % 2.3 Basophils % 1.4 Nucleated RBC % 0 Absolute Neutrophils 4.40 Absolute Lymphocytes 1.97 Absolute Monocytes 0.43 Absolute Eosinophils 0.16 Absolute Basophils 0.10 PT 10.3 INR 1.0 APTT 25.1 Sodium Potassium Chloride Carbon Dioxide Anion Gap BUN Creatinine Estimated GFR/1.73 m2 Glucose Hemoglobin A1c Calcium Magnesium Total Bilirubin AST ALT Alkaline Phosphatase Troponin I < 0.05 Total Protein Albumin Triglycerides Total Cholesterol LDL Cholesterol, Calc HDL Cholesterol COVID-19 Source SARS-CoV-2 (PCR) Nasopharyn COVID-19 PCR Influenza Type A (PCR) Influenza Type B (PCR) RSV (PCR) Ref Test Perform Site 07/06/20 12:12 WBC RBC Hgb Hct MCV MCH MCHC RDW Plt Count MPV Immature Gran % Neutrophils % Lymphocytes % Monocytes % Eosinophils % Basophils % Nucleated RBC % Absolute Neutrophils Absolute Lymphocytes Absolute Monocytes Absolute Eosinophils Absolute Basophils PT INR APTT Sodium 140 Potassium 3.7 Chloride 104 Carbon Dioxide 23.9 Anion Gap 12.1 H BUN 12 Creatinine 0.88 Estimated GFR/1.73 m2 >= 60.00 Glucose 104 Hemoglobin A1c Calcium 8.8 Magnesium 2.1 Total Bilirubin 0.4 AST 12 L ALT 22 Alkaline Phosphatase 90 Troponin I < 0.05 Total Protein 6.5 Albumin 3.6 Triglycerides Total Cholesterol LDL Cholesterol, Calc HDL Cholesterol COVID-19 Source SARS-CoV-2 (PCR) Nasopharyn COVID-19 PCR Influenza Type A (PCR) Influenza Type B (PCR) RSV (PCR) Ref Test Perform Site [facility] Medical History Abnormal laboratory test result Breast lump (11/02/02) Closed fracture of rib Depressive disorder Eczema of hand (12/18/14) Essential hypertension (04/20/13) Foot pain, right Grief (12/18/14) Hiatal hernia (09/02/01) EGD CONFIRMED. NORMAL BARIUM SWALLOW History of echocardiogram Hypokalemia (06/17/12) Onychomycosis (02/02/17) Osteoporosis (09/02/01) T -4.5 Paroxysmal atrial fibrillation Smoker (07/25/08) Standard chest x-ray abnormal Surgical History section (05/19/75) Colonoscopy - MAC (06/08/07) ECHO (10/15/12) PAROXYSMAL A-FIB ([facility]) EGD - MAC (~2001) HH History of section History of esophagogastroduodenoscopy Family History Mother , 97 Rectal cancer Father , 75 COPD (chronic obstructive pulmonary disease) Sister , 73 Neoplasm BREAST Breast cancer Sister Diabetes COPD (chronic obstructive pulmonary disease) Hyperlipidemia Brother Essential hypertension Hyperlipidemia Maternal Grandfather , 73 Depression Paternal Grandfather , 73 Stroke Maternal Grandmother , 65 Lung cancer Paternal Grandmother , 78 No problems noted. Son No problems noted. Daughter No problems noted. Social History Smoking/Tobacco Use Status: Current every day Tobacco Type: cigarettes Second Hand Exposure: Yes Smoking risk assessment performed?: Yes Alcohol Intake: current Alcohol Intake frequency: 0-2 drinks per day Alcohol type: beer Drug use: Never Substance use type: does not use Caregiver/Support person: No Household members: none Housing: apartment Communication Needs: Corrective Lenses Do you need help understanding health information?: Rarely Pets and animals: Yes Pets and animals: cat(s) Sexually active: No Do you think of yourself as: straight/heterosexual Current gender identity: female What is your relationship status?: How often do you talk on the phone with friends or family?: twice per week How often do you get together with friends or relatives?: twice per week How often do you attend religious or mosque services?: 4 or more times per year Do you belong to any clubs or organized social groups?: no Panel score (0-1 are the most socially isolated patients): 2 What type of physical activity do you participate in: walking and other Details: Murphy Ball, Bill Chi, stationary bike Duration: 15-30 minutes/day Frequency: 3-4 times per week Komal/Sabianism: Religion Special komal needs: No Seatbelt use: always Drive intox or ride w/intox lead driver: No Do you feel safe at home: Yes Do you feel safe in your relationship?: Yes
[2020-07-07 11:01] VITALS: PULSE 86
[2020-07-07 17:12] LABS: Hemoglobin A1C 5.5 % (<5.7)
== END 2020-07-07 11:23 | disposition home or self-care (01) ==
LOC: ER 15:44 → MS 16:10
PROVIDERS: Admitting Provider Internal Medicine; Emergency Provider Physician Assistant; PCP Family Medicine; Visit Provider Internal Medicine
DX: R07.89 Other chest pain (principal); I48.0 Paroxysmal atrial fibrillation; I10 Essential (primary) hypertension; F32.9 Major depressive disorder, single episode, unspecified; F17.210 Nicotine dependence, cigarettes, uncomplicated; M81.0 Age-related osteoporosis without current pathological fracture; K44.9 Diaphragmatic hernia without obstruction or gangrene; F41.9 Anxiety disorder, unspecified
CPT/HCPCS: 36415; 71275; 74177; 80053; 80061; 87637; 93005; 96361; 96365; 96367; 99217; 99220; 99285; J1650; U0003; 83036; 83735; 84484; 85025; 85610; 85730; 93010; 99219; G0378; J0131; J3490

== ENCOUNTER 2020-07-26 04:33 | Outpatient (CLI) | payer MEDICARE, BC, SELFPAY ==
[2020-07-27 22:12] LABS: COVID-19 RT-PCR Result NEGATIVE (Negative)
== END 2020-07-26 04:53 ==
PROVIDERS: PCP Family Medicine; Visit Provider Family Medicine
DX: Z01.818 Encounter for other preprocedural examination (principal); Z11.52 Encounter for screening for COVID-19
CPT/HCPCS: U0003

== ENCOUNTER 2020-07-30 01:19 | Outpatient (CLI) | payer MEDICARE, BC, SELFPAY ==
--- NOTE | 2020-07-30 07:00 | DI.NM_ITS ---
APPROVED REPORT Exam: Exercise Treadmill Patient Location: Out-Patient Room/Bed: Stress Nurse: Leonor Varela RN Ordering Provider:YOHAN SLAUGHTER, Contact Number: [phone] BMI: 22.29 Baseline Rhythm: Sinus Rhythm Indications: Atypical chest pain, SOB, Paroxysmal atrial fibrillation. Medical History Medical History: Depression, HTN, Hypokalemia, Paroxysmal Atrial Fibrillation, Smoker Cardiac Medications: Aspirin, Megared, Metoprolol succinate Allergies: Doxycycline, Buproprion, Guafenesin, Sulfa antibiotics Cardiac Risk Factors: HTN, Smoking (current) Previous Cardiac Procedures: None Pretest Chest Pain Characteristics: None Exercise History: Indeterminate Physical Disabilities: None Lung Sounds: Clear to auscultation Heart Sounds: Regular Stress Test Details Test: Exercise stress testing was performed using a modified Demetrio protocol. Nuclear Acquisition: Rest Tc-99m/Stress Tc-99m 1 day Rest Isotope: Tc-99m Sestamibi. Dose: 11.4 Date: 07/30/20 Injection Time: 0900 Stress Isotope: Tc-99m Sestamibi. Dose: 37.7 Date: 07/30/2020 Injection Time: 1345 HR Resting HR Supine: 61 bpm Max Heart Rate (APMHR): 147.432829 bpm Resting HR Standin bpm Target HR (85% APMHR): 124.286325 bpm Max HR Achieved: 129 bpm % of APMHR: 87.76 Recovery HR: 85 bpm HR response to stress: Normal HR response to stress Comment: Metoprolol succinate held for 48 hours prior to test. BP Resting BP Supine: 142/80 mmHg Resting BP Standin/70 mmHg Max BP: 172/78 mmHg Recovery BP: 134/86 mmHg BP response to stress: Normal blood pressure response to stress. ECG Resting ECG: Sinus Arrythmia Ectopy: None. Stress ECG: unable to determine due to artifact. ST Change: unable to determine due to artifact. Arrhythmia: unable to determine due to artifact. Recovery ECG: Sinus Rhythm Recovery ST Change: No significant ST segment changes noted Recovery Arrhythmia: PACs. Clinical Reason for Termination: Dyspnea Stress Symptoms: Dyspnea Exercise duration: 7 min16 sec Exercise capacity: 7.56 METs Mike Treadmill Score: 6.4 Rate Pressure Product: 10808 Stress ECG Conclusion 1. The patient exercised for 7 minutes (8 METS). The patient no symptom suggestive of ischemia. 2. Heart rate and blood pressure response were normal. 3. The EKG portion of this exam was uninterpretable due to significant artifact. Mike Treadmill Score is 6.4 which is Low risk. Stress Test Summary STAGE Time (mins) Speed (mph) Grade (%) HR BP SYMPTOMS METS Supine 61 142/80 SpO2 98% Standing 74 144/70 1 3 1.7 10 117 168/80 4.6 2 6 2.5 12 126 7 3 9 3.4 14 Modified to speed of 2.5. Spo2 91% 10.2 1 min recovery 113 172/78 3 min recovery 75 140/82 SpO2 98% 6 min recovery 85 134/86 Demetrio protocol modified in the 3rd stage to encourage continuation of exercise. Significant artifiact present during testing, HR reading innaccurate. HR during exercised obtained via pulse oximeter. MPI Conclusion The patient's ejection fraction was 75% with stress. There were no wall motion abnormalities. There is no evidence of ischemia on the imaging portion exam. This represents a normal SPECT stress test. Radiologist Interpretation Radiologist agrees with Linen Controller's Interpretation. Radiologist Interpretation by: Neris Carcaom MD Interpretation Date/Time: 07/31/2020 16:09:59
== END 2020-07-30 01:39 ==
PROVIDERS: PCP Family Medicine; Visit Provider Family Medicine
DX: R07.89 Other chest pain (principal); I48.0 Paroxysmal atrial fibrillation; R06.02 Shortness of breath; I10 Essential (primary) hypertension; F17.210 Nicotine dependence, cigarettes, uncomplicated
CPT/HCPCS: 78452; 93016; 93018; 93017

== ENCOUNTER 2020-08-04 14:35 | Observation (INO) | payer MEDICARE, BC, SELFPAY ==
[2020-08-04] VITALS (15 sets, daily range): BP systolic 113–151; BP diastolic 67–89; PULSE 52–73; RESP 16–18; TEMP 35.7–36.5; O2SAT 94–98
--- NOTE | 2020-08-04 14:45 | DI.RAD_ITS ---
EXAM: XR LUMBAR SPINE AP, LAT CLINICAL HISTORY: hx Fx's. Acute L back pain. TECHNIQUE: 2D digital imaging was performed. COMPARISON: CR XR DEXA BONE DENSITY W/WO BOB from 08/09/2019 FINDINGS: No fracture is identified. There is a minimal degenerative scoliosis. The alignment is otherwise un remarkable. There are degenerative disc changes throughout. Aortic calcification. IMPRESSION: Degenerative disc changes. No acute abnormality. DATA REPOSITORY: RADIATION DOSE DELIVERED:
--- NOTE | 2020-08-04 14:49 | W.ED.GENAD ---
Discharge Plan Disposition Patient Disposition: [facility] INPATIENT Condition: Stable Discharge Details Clinical Impression: Back pain Admit Date/Time: 08/04/20 18:11 Admit Provider: Tyler Vega Attending Provider: Tyler Vega Primary Care Provider: Annie Min ED Provider: Garry Culver Discharge Data Discharge Date/Time-TO BE ENTERED AT DEPARTURE: 08/04/20 19:05 Medical Decision Making 75-year-old female presents from home via EMS. States she had the abrupt onset of low back pain while lifting a heavy vacuum. States it felt like previous compression fractures. She would notice off the ground. She did not fall or injure herself in any other way. No motor weakness and no numbness, tingling, or change to bladder habits. Vital signs are unremarkable, her exam reveals motor and sensory intact. Concern for muscular spasm, muscular strain, must exclude compression fracture. Patient IV access established, screening labs obtained, given parenteral analgesia and referred for x-ray. The patient's radiograph reveals stable diffuse narrowing of the lumbar spine with endplate osteophytes present and facet arthropathy at L5-S1. There are no acute findings and no appreciable change compared to July 08, 2017. After x-ray, patient given additional analgesia. She has required 2 person assist to transfer from bed to commode. She lives independently in a second floor apartment which requires 12 steps to enter. Following Toradol, hydromorphone, Lidoderm patch, oxycodone patient has had persistent pain she rates 4 out of 10 at rest and 7 out of 10 with any movement. I do feel she merits consideration of overnight admission with PT consultation in the morning.Would consider advanced imaging if conservative management fails, but do not feel that further imaging will exchange underwriting consultant at this time given unremarkable plain radiograph and normal motor function.. The patient states to me she wishes to be a fulll code but does not want to be on [facility] life support. HPI General Mode of arrival: EMS. Date/Time Provider Initiated Documentation: 08/04/20 14:36. Limitations to Documentation: no limitations. Information obtained by: patient and EMS. History of Present Illness 75 year old F presents to the emergency department with the chief complaint of Left low back pain after lifting a vacuum lamp cleaner street light, described as moderate and severe, Quality is described as dull, and is localized to the back and left. Patient reports radiation to (Buttock at times). Patient started experiencing this minute(s) No relieving factors improve symptom(s), and Rest improves symptom(s), Movement worsens symptoms . Patient notes denies fever/chills, syncope and weakness. Patient did receive the following treatments prior to arrival, other (Fentanyl en route) Related Data Home Medications Medication Instructions Recorded Confirmed Eugenio Red 1 cap PO DAILY 10/07/12 08/04/20 acetaminophen [Tylenol Extra 500 mg PO PRN 10/07/12 08/04/20 Strength] ascorbic acid (vitamin C) [Vitamin 500 mg PO DAILY 10/07/12 08/04/20 C] ibuprofen [Motrin IB] 200 mg PO PRN 10/07/12 08/04/20 multivitamin [Once Daily] 1 tab PO DAILY 10/07/12 08/04/20 calcium carbonate [Caltrate 600] 600 mg PO BID 01/13/13 08/04/20 cholecalciferol (vitamin D3) 1,000 unit PO DAILY 01/13/13 08/04/20 Baby Aspirin 81 mg PO DAILY tab-cap 11/14/13 08/04/20 fluticasone propionate 50 2 spray HAYLEY DAILY PRN gm 07/08/18 08/04/20 mcg/actuation nasal spray,suspension albuterol sulfate 90 mcg/actuation 2 puff INHALATION Q4H PRN #8.5 gm 09/08/18 08/04/20 aerosol inhaler lidocaine [Lidoderm] 1 patch TP DAILY PRN #15 each 12/09/19 08/04/20 calcitonin (salmon) 200 1 spray INTRANA AL DAILY #3.7 ml 12/19/19 08/04/20 unit/actuation nasal spray lorazepam 0.5 mg tablet 0.5 mg PO BID PRN #30 tab 05/18/20 08/04/20 metoprolol succinate 25 mg PO DAILY 08/04/20 08/04/20 Previous Rx's Medication Instructions Recorded albuterol sulfate 90 mcg/actuation 2 puff INHALATION Q4H PRN #8.5 gm 09/08/18 aerosol inhaler lidocaine [Lidoderm] 1 patch TP DAILY PRN #15 each 12/09/19 calcitonin (salmon) 200 1 spray INTRANA AL DAILY #3.7 ml 12/19/19 unit/actuation nasal spray lorazepam 0.5 mg tablet 0.5 mg PO BID PRN #30 tab 05/18/20 Allergies Allergy/AdvReac Type Severity Reaction Status Date / Time doxycycline Allergy Mild Unverified 08/04/20 14:43 bupropion AdvReac Mild Unverified 08/04/20 14:43 guaifenesin AdvReac Mild Unverified 08/04/20 14:43 Sulfa (Sulfonamide AdvReac Unknown Nausea Unverified 08/04/20 14:43 Antibiotics) General Stated Complaint: Nk/Back Pain DEVIN: 3 Review of Systems Narrative: Did not fall or injure herself. No weakness, numbness, or tingling. No change to bowel or bladder habit. Recently well. 8 systems reviewed and otherwise negative [facility] Medical History (Updated 08/05/20 @ 07:04 by Tyler Vega) Abnormal laboratory test result Breast lump (11/02/02) Closed fracture of rib Depressive disorder Eczema of hand (12/18/14) Essential hypertension (04/20/13) Foot pain, right Grief (12/18/14) Hiatal hernia (09/02/01) EGD CONFIRMED. NORMAL BARIUM SWALLOW History of echocardiogram Hypokalemia (06/17/12) Onychomycosis (02/02/17) Osteoporosis (09/02/01) T -4.5 Paroxysmal atrial fibrillation Smoker (07/25/08) Standard chest x-ray abnormal Surgical History section (05/19/75) Colonoscopy - MAC (06/08/07) ECHO (10/15/12) PAROXYSMAL A-FIB ([facility]) EGD - MAC (~2001) HH History of section History of esophagogastroduodenoscopy Family History Mother , 97 Rectal cancer Father , 75 COPD (chronic obstructive pulmonary disease) Sister , 73 Neoplasm BREAST Breast cancer Sister Diabetes COPD (chronic obstructive pulmonary disease) Hyperlipidemia Brother Essential hypertension Hyperlipidemia Maternal Grandfather , 73 Depression Paternal Grandfather , 73 Stroke Maternal Grandmother , 65 Lung cancer Paternal Grandmother , 78 No problems noted. Son No problems noted. Daughter No problems noted. Social History Smoking/Tobacco Use Status: Current every day Tobacco Type: cigarettes Second Hand Exposure: Yes Smoking risk assessment performed?: Yes Alcohol Intake: current Alcohol Intake frequency: 0-2 drinks per day Alcohol type: beer Drug use: Never Substance use type: does not use Caregiver/Support person: No Household members: none Housing: apartment Communication Needs: Corrective Lenses Do you need help understanding health information?: Rarely Pets and animals: Yes Pets and animals: cat(s) Sexually active: No Do you think of yourself as: straight/heterosexual Current gender identity: female What is your relationship status?: How often do you talk on the phone with friends or family?: twice per week How often do you get together with friends or relatives?: twice per week How often do you attend rastafarian or anglican services?: 4 or more times per year Do you belong to any clubs or organized social groups?: no Panel score (0-1 are the most socially isolated patients): 2 What type of physical activity do you participate in: walking and other Details: Murphy Ball, Bill Chi, stationary bike Duration: 15-30 minutes/day Frequency: 3-4 times per week Komal/Methodist: Episcopalian Special komal needs: No Seatbelt use: always Drive intox or ride w/intox tilt tray driver: No Do you feel safe at home: Yes Do you feel safe in your relationship?: Yes Exam Narrative Exam Narrative: GEN: awake, alert, oriented 3. Pleasant, well groomed, interactive. HEAD: Normocephalic, atraumatic ENT: Mucous membranes moist, oropharynx unremarkable, External ear exam unremarkable EYES: PERRL, EOMI NECK: Full ROM, no ISRAEL, no menigismus CHEST/RESP: Nontender, clear to auscultation bilateral, no wheeze/rhonchi/rales CARDIOVASCULAR: RRR, no murmur, rub maricarmen. 2+ Rad pulse bilateral ABDOMEN: Soft, nontender, no mass. +Bowel sounds Back: Left lower lumbar paraspinous tenderness without midline tenderness, step-off or deformity. EXT: Normal musculature, no edema, no rash. Sensation intact throughout including saddle distribution. Reflexes 1 - and symmetric at the patella bilaterally. Motor graded 5 out of 5 but is limited by pain Neuro: Grossly normal neurologic exam, conversant, interactive. Psych: Speech fluent, thoughts congruent, affect normal Course Vital Signs Vital signs: Vital Signs Temperature 36.4 C L 08/04/20 14:35 Pulse 73 08/04/20 14:35 Blood Pressure 143/89 H 08/04/20 14:35 Pulse Oximetry 98 08/04/20 14:35 Temperature 36.4 C L 08/04/20 14:35 Temperature Source Temporal Artery Scan 08/04/20 14:35 Pulse 73 08/04/20 14:35 Respiratory Effort Non-Labored 08/04/20 14:41 Blood Pressure 143/89 H 08/04/20 14:35 Blood Pressure Position Sitting 08/04/20 14:35 Pulse Oximetry 98 08/04/20 14:35 Oxygen Delivery Method Room Air 08/04/20 14:35 Oxygen Flow Rate 0 08/04/20 14:35 Pain Level 5 08/04/20 14:35
[2020-08-04] MEDS: Ketorolac 15 MG/ML VIAL IVP (14:58)
[2020-08-04] MEDS: HYDROmorphone 2 MG/ML VIAL 0.5 MG IVP (14:58)
[2020-08-04 15:44] LABS: HGB 14.1 g/dL (11.2-15.7); MCH 32.9 pg (27.0-33.0); MCHC 34.4 % (32.0-36.0); MCV 95.8 fL (80-95); MPV 10.2 fL (8.0-11.0); Platelet Count 179 10^3/uL (130-400); RBC 4.28 10^6/uL (3.93-5.22); RDW-SD 46.1 fL; WBC 11.92 10^3/uL (4.4-10.8)
[2020-08-04 15:52] LABS: Anion Gap 10.5 mmol/L (3-11); BUN 14 mg/dL (7-18); CO2 23.5 mmol/L (21.0-32.0); CREATININE 0.8 mg/dL (0.55-1.02); Calcium 8.7 mg/dL (8.5-10.1); Chloride 105 mmol/L (98-107); Glucose 126 mg/dL (74-106); Potassium 3.6 mmol/L (3.5-5.1); Sodium 139 mmol/L (136-145)
--- NOTE | 2020-08-04 16:04 | DI.VRAD_ITS ---
PROCEDURE INFORMATION: Exam: XR Lumbosacral Spine, 2 or 3 Views Exam date and time: 08/04/2020 2:50 PM Age: 75 years old Clinical indication: Other: HX fx's acute lt back pain TECHNIQUE: Imaging protocol: XR of the lumbosacral spine, 2 or 3 views. COMPARISON: CR LUMBAR SPINE COMPLETE 07/08/2017 8:38 AM FINDINGS: Bones/joints: Bones are demineralized. Stable diffuse narrowing of the lumbar interspaces with endplate osteophyte formation and facet arthropathy at L5-S1. Soft tissues: Unremarkable. Vasculature: Vascular calcifications. IMPRESSION: No acute findings and no appreciable change from 07/08/2017. Dictated and Authenticated by: Velvet Watts MD. Ordering:HOWARD Castañeda MD
[2020-08-04] MEDS: oxyCODONE 5 MG TAB PO (16:09)
[2020-08-04] MEDS: Lidocaine 5% Patch 1 PATCH TP (16:57)
--- NOTE | 2020-08-04 20:37 | W.PM.HP.N ---
Date of service: 08/04/20 Time of Service: 20:38 Assessment and Plan Assessment and plan (1) Intractable low back pain: Start date: 08/04/20 Status: Acute Assessment and plan: This is a 75-year-old lady admitted for intractable low back pain with radiation of pain into her right lower extremity with movement of the hip, extension at the knee and with cough. Plain film imaging does reveal degenerative disc disease at L5-S1 but no acute compression fractures. Patient does have a history of compression fractures at the lower thoracic level at T7 and T9 and patient has no tenderness over these areas. To admitted for pain control and had good pain control and sleep on IV Dilaudid. She is chronically on lidocaine patches and ibuprofen as outpatient. She has had recent physical therapy with admission and wait for 2020 with back pain. She does not do daily back exercise. She does have risk for continued compression fracture with osteoporosis, smoking tobacco and drinking alcohol daily. She also is thinly built and appears descent. She will be evaluated by physical therapy this morning and if indicated CT scan of the lumbar spine should be considered. He has never had an MRI of her LS spine and this may be indicated if failed conservative therapy with referral to spine center or neurosurgeon depending on MRI findings. Patient is very active and independent living alone. (2) Compression fracture: Status: Chronic Assessment and plan: Patient has previous compression fractures at T7 and T9 with no evidence of lumbar compression fracture but degenerative disc disease at L5-S1. Her pain today appears to be more like discogenic pain with radiation of pain into the right lower extremity and increased pain with cough. She is at risk for compression fractures. CT imaging may be indicated if PT is not able to have patient move better without pain over this observation period. History of Present Illness History of Present Illness Chief Complaint: Abrupt low back pain lifting heavy vacuum Narrative: This is a 75-year-old female patient who has had a history of compression fracture in June 2019 and another back injury upper thoracic and cervical spine and July 2020 which was probably degenerative disc disease exacerbation. CT scan of her back did show compression fractures in 2 vertebrae in her lower back with her last hospitalization in 2020. There is old compression fractures noted in July 2020 were at T7 and T9. He was aware of 1 of these with her previous ablation in June 2019. She presented after lifting a heavy vacuum off the floor and bending forward to do so with acute pop in her lower spine and pain across her lower back but also going into her right lower extremity. She usually has sciatica in her left lower extremity when her back goes out. She has been through physical therapy for her back just recently but does not do routine exercises. She is a smoker, thin build but does not exercise routinely with weightbearing exercise. She takes calcium and was offered Fosamax because of osteoporosis but refused. She denies any incontinence of urine or stool and has no focal motor deficits. She denies cough with smoking but did request nicotine patch while in the hospital, smoking 1/2 pack/day routinely and having 1 beer at night. Patient does live alone and is very independent. Review of Systems Narrative: 13 point review of systems otherwise unrevealing or stable. [facility] Medical History (Updated 08/05/20 @ 07:04 by Tyler Vega) Abnormal laboratory test result Breast lump (11/02/02) Closed fracture of rib Depressive disorder Eczema of hand (12/18/14) Essential hypertension (04/20/13) Foot pain, right Grief (12/18/14) Hiatal hernia (09/02/01) EGD CONFIRMED. NORMAL BARIUM SWALLOW History of echocardiogram Hypokalemia (06/17/12) Onychomycosis (02/02/17) Osteoporosis (09/02/01) T -4.5 Paroxysmal atrial fibrillation Smoker (07/25/08) Standard chest x-ray abnormal Surgical History section (05/19/75) Colonoscopy - MAC (06/08/07) ECHO (10/15/12) PAROXYSMAL A-FIB ([facility]) EGD - MAC (~2001) History of section History of esophagogastroduodenoscopy Family History Mother , 97 Rectal cancer Father , 75 COPD (chronic obstructive pulmonary disease) Sister , 73 Neoplasm BREAST Breast cancer Sister Diabetes COPD (chronic obstructive pulmonary disease) Hyperlipidemia Brother Essential hypertension Hyperlipidemia Maternal Grandfather , 73 Depression Paternal Grandfather , 73 Stroke Maternal Grandmother , 65 Lung cancer Paternal Grandmother , 78 No problems noted. Son No problems noted. Daughter No problems noted. Social History Smoking/Tobacco Use Status: Current every day Tobacco Type: cigarettes Second Hand Exposure: Yes Smoking risk assessment performed?: Yes Alcohol Intake: current Alcohol Intake frequency: 0-2 drinks per day Alcohol type: beer Drug use: Never Substance use type: does not use Caregiver/Support person: No Household members: none Housing: apartment Communication Needs: Corrective Lenses Do you need help understanding health information?: Rarely Pets and animals: Yes Pets and animals: cat(s) Sexually active: No Do you think of yourself as: straight/heterosexual Current gender identity: female What is your relationship status?: How often do you talk on the phone with friends or family?: twice per week How often do you get together with friends or relatives?: twice per week How often do you attend mormon or jain services?: 4 or more times per year Do you belong to any clubs or organized social groups?: no Panel score (0-1 are the most socially isolated patients): 2 What type of physical activity do you participate in: walking and other Details: Murphy Ball, Bill Chi, stationary bike Duration: 15-30 minutes/day Frequency: 3-4 times per week Komal/Presybeterian: Christianity Special komal needs: No Seatbelt use: always Drive intox or ride w/intox 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 Do you feel safe at home: Yes Do you feel safe in your relationship?: Yes Meds Home Medications and Allergies Home Medications Medication Instructions Recorded Confirmed Type Eugenio Red 1 cap PO DAILY 10/07/12 08/04/20 History acetaminophen [Tylenol Extra 500 mg PO PRN 10/07/12 08/04/20 History Strength] ascorbic acid (vitamin C) [Vitamin 500 mg PO DAILY 10/07/12 08/04/20 History C] ibuprofen [Motrin IB] 200 mg PO PRN 10/07/12 08/04/20 History multivitamin [Once Daily] 1 tab PO DAILY 10/07/12 08/04/20 History calcium carbonate [Caltrate 600] 600 mg PO BID 01/13/13 08/04/20 History cholecalciferol (vitamin D3) 1,000 unit PO DAILY 01/13/13 08/04/20 History Baby Aspirin 81 mg PO DAILY tab-cap 11/14/13 08/04/20 History fluticasone propionate 50 2 spray HAYLEY DAILY PRN gm 07/08/18 08/04/20 History mcg/actuation nasal spray,suspension albuterol sulfate 90 mcg/actuation 2 puff INHALATION Q4H PRN #8.5 gm 09/08/18 08/04/20 Rx aerosol inhaler lidocaine [Lidoderm] 1 patch TP DAILY PRN #15 each 12/09/19 08/04/20 Rx calcitonin (salmon) 200 1 spray INTRANA AL DAILY #3.7 ml 12/19/19 08/04/20 Rx unit/actuation nasal spray lorazepam 0.5 mg tablet 0.5 mg PO BID PRN #30 tab 05/18/20 08/04/20 Rx metoprolol succinate 25 mg PO DAILY 08/04/20 08/04/20 History Allergies Allergy/AdvReac Type Severity Reaction Status Date / Time doxycycline Allergy Mild Unverified 08/04/20 14:43 bupropion AdvReac Mild Unverified 08/04/20 14:43 guaifenesin AdvReac Mild Unverified 08/04/20 14:43 Sulfa (Sulfonamide AdvReac Unknown Nausea Unverified 08/04/20 14:43 Antibiotics) Exam Narrative Exam Narrative: General: Patient appears younger than stated age, alert and oriented x3 and in no acute distress. She does wince with pain when she coughs or moves in bed and is most comfortable lying with her head elevated at a 45 degree angle. Slightly flattened affect with good eye contact. HEENT: Normocephalic, eyes with pupils equal and reactive to light symmetrically, extraocular movement intact and sclera anicteric. Oropharynx with moist mucosa. Neck: Supple without JVD. Back: Stooped posture with tenderness to palpation over lumbar spine and increased paraspinous muscle tone over lumbar spine. Loss of lordotic curve. Straight leg test is positive on the right. Lungs: Fair aeration with bronchovesicular breath sounds diffusely and no focalized rales or rhonchi. Heart: Regular rate and rhythm with no murmurs or gallops appreciated. Breast: Exam deferred. Abdomen: Scaphoid contour, soft nontender to palpation with no palpable hepatosplenomegaly. Genitalia/rectal: Exam deferred. Extremities: Without clubbing, cyanosis or pitting edema. Peripheral pulses are intact. No joint swelling. Right hip has no tenderness to range of motion but with flexing does cause her back pain to worsen and as stated straight leg test negative on the left but positive on the right. Skin: Normal color, rough texture, normal turgor, warm and dry. Neuro: Cranial nerves II through XII gross intact, no focalizing motor deficits. Dorsiflexion right foot normal strength. DTRs are physiologic and symmetrical. Psych: Slightly flattened affect but normal variation with good eye contact. Mood normal. Slightly agitated with conversation. No abnormal thought processes. Remote and recent memory intact. Results Imaging Imaging Studies: Exam: XR Lumbosacral Spine, 2 or 3 Views Exam date and time: 08/04/2020 2:50 PM Age: 75 years old Clinical indication: Other: HX fx's acute lt back pain TECHNIQUE: Imaging protocol: XR of the lumbosacral spine, 2 or 3 views. COMPARISON: CR LUMBAR SPINE COMPLETE 07/08/2017 8:38 AM FINDINGS: Bones/joints: Bones are demineralized. Stable diffuse narrowing of the lumbar interspaces with endplate osteophyte formation and facet arthropathy at L5-S1. Soft tissues: Unremarkable. Vasculature: Vascular calcifications. IMPRESSION: No acute findings and no appreciable change from 07/08/2017. Dictated and Authenticated by: Velvet Watts MD. CT of the chest performed 07/06/2020: IMPRESSION: 1. Multiple calcified granulomata in the lungs. 2. No acute findings in the lungs. 3. Moderate but old compression fractures involving T7 and T9 vertebral bodies 4. No pulmonary embolism. 5. A normal thoracic aorta. Labs Result diagrams: 08/04/20 15:40 08/04/20 15:40 Labs: Laboratory Results - last 24 hr 08/04/20 08/04/20 15:40 15:40 WBC 11.92 H RBC 4.28 Hgb 14.1 Hct 41.0 MCV 95.8 H MCH 32.9 MCHC 34.4 RDW 13.0 Plt Count 179 MPV 10.2 Sodium 139 Potassium 3.6 Chloride 105 Carbon Dioxide 23.5 Anion Gap 10.5 BUN 14 Creatinine 0.8 Estimated GFR/1.73 m2 >= 60.00 Glucose 126 H Calcium 8.7 Last Vital Signs Temp 36.5 C 08/04/20 19:25 Pulse 68 08/04/20 19:25 Resp 18 08/04/20 19:25 BP 149/77 H 08/04/20 19:25 Pulse Ox 94 08/04/20 19:25 COVID-19 Screening Have you, or household traveled for leisure in last 14 days?: No Had IN PERSON contact w/suspected or confirmed C-19 person: No
[2020-08-04] MEDS: Metoprolol 25 MG TAB PO (21:15)
[2020-08-04] MEDS: Acetaminophen 325 MG TAB 650 MG PO (21:15)
[2020-08-04] MEDS: Normal Saline Flush 10 ML SYR IVP (21:15)
[2020-08-04] MEDS: Calcium Carbonate 1.5 GM TAB PO (21:15)
[2020-08-04] MEDS: Heparin 5,000 UNITS/ML VIAL 5000 UNITS SC (21:15)
[2020-08-04] MEDS: Nicotine 14 MG/24 HR PATCH TD (22:30)
[2020-08-05] VITALS (7 sets, daily range): BP systolic 128–157; BP diastolic 74–94; PULSE 47–72; RESP 14–18; TEMP 36.1–37; O2SAT 94–98
[2020-08-05] MEDS: HYDROmorphone 2 MG/ML VIAL 0.5 MG IVP (01:49)
[2020-08-05] MEDS: Normal Saline Flush 10 ML SYR IVP ×4 (01:49→23:50)
[2020-08-05] MEDS: Heparin 5,000 UNITS/ML VIAL 5000 UNITS SC (05:41)
[2020-08-05 06:48] LABS: Abs Immature Grans 0.01 10^3/uL (0.0-0.06); Absolute Basophil Count 0.08 10^3/uL (0.0-0.2); Absolute Eosinophil Count 0.24 10^3/uL (0.0-0.7); Absolute Lymphocyte Count 1.34 10^3/uL (1.2-3.4); Absolute Monocyte Count 0.41 10^3/uL (0.1-0.8); Absolute Neutrophil Count 4.64 10^3/uL (1.2-6.7); Basophils % 1.2; Eosinophils % 3.6; HCT 40.2 % (36.0-46.0); HGB 13.5 g/dL (11.2-15.7); Immature Grans % 0.1; Lymphocytes % 19.9; MCH 32.1 pg (27.0-33.0); MCHC 33.6 % (32.0-36.0); MCV 95.7 fL (80-95); MPV 10.9 fL (8.0-11.0); Monocytes % 6.1; Neutrophils % 69.1; Nucleated RBC 0 %; Platelet Count 162 10^3/uL (130-400); RDW 13.2 % (11.7-14.6); RDW-SD 46.4 fL; WBC 6.72 10^3/uL (4.4-10.8)
[2020-08-05 07:04] LABS: ALT 21 U/L (14-59); AST 13 U/L (15-37); Albumin 3.2 g/dL (3.4-5.0); Alkaline Phosphatase 90 U/L (46-116); Anion Gap 7.2 mmol/L (3-11); BUN 15 mg/dL (7-18); Bilirubin, Total 0.7 mg/dL (0.2-1.0); CO2 26.8 mmol/L (21.0-32.0); CREATININE 0.7 mg/dL (0.55-1.02); Calcium 9.2 mg/dL (8.5-10.1); Chloride 106 mmol/L (98-107); Glucose 100 mg/dL (74-106); Potassium 3.7 mmol/L (3.5-5.1); Sodium 140 mmol/L (136-145)
[2020-08-05] MEDS: Calcium Carbonate 1.5 GM TAB PO ×2 (08:15→20:12)
[2020-08-05] MEDS: Cholecalciferol (Vitamin D3) 1,000 UNIT TAB 1000 UNITS PO (08:15)
[2020-08-05] MEDS: Multivitamin TAB 1 TAB PO (08:15)
[2020-08-05] MEDS: Ascorbic Acid 500 MG TAB PO (08:15)
[2020-08-05] MEDS: Aspirin 81 MG CHEW CH (08:15)
[2020-08-05] MEDS: Nicotine 14 MG/24 HR PATCH TD (08:15)
[2020-08-05] MEDS: Methocarbamol 500 MG TAB 1000 MG PO (08:50)
[2020-08-05] MEDS: Ketorolac 30 MG/ML VIAL IVP ×2 (10:18→20:12)
--- NOTE | 2020-08-05 10:29 | IN_ITS ---
Date of service: 08/05/20 Time of Service: 09:00 PT Notes Visit Reasons: INTRACTIBLE LUMBAR BACK PAIN Inpatient Physical Therapy Evaluation Date: 08/05/20 Referring Doctor: Tyler Vega PT Orders: PT CONSULT: Limited ability Precautions: Standard Patient Profile/Admitting Diagnosis: 75 yo female with acute central LBP, without radiculopathy after lifting vacuum 08/04/20. Has a history of thoracic compression fractures and osteoporosis. Negative lumbar x-ray. PMHX: Medical History (Updated 08/05/20 @ 07:04 by Tyler Vega) Abnormal laboratory test result Breast lump (11/02/02) Closed fracture of rib Depressive disorder Eczema of hand (12/18/14) Essential hypertension (04/20/13) Foot pain, right Grief (12/18/14) Hiatal hernia (09/02/01) EGD CONFIRMED. NORMAL BARIUM SWALLOW History of echocardiogram Hypokalemia (06/17/12) Onychomycosis (02/02/17) Osteoporosis (09/02/01) T -4.5 Paroxysmal atrial fibrillation Smoker (07/25/08) Standard chest x-ray abnormal Surgical History section (05/19/75) Colonoscopy - MAC (06/08/07) ECHO (10/15/12) PAROXYSMAL A-FIB ([facility]) EGD - MAC (~2001) HH History of section History of esophagogastroduodenoscopy Social History/Home Situation: Lives in a second floor apartment, alone. Premorbid level of function was independent. She has two cats. She has 12 stairs to enter her apt with 2 rails. She has two children who live nearby. Current Functional Limitations: Requires RW for ambulation and transfers, supervision with transfers, requires bed rail to get in and out of bed. Non-tolerant to stair climbing, or walking beyond 20 ft Equipment Owned/DME: None Subjective: On 08/04/20 she was lifting her vacuum, felt a loud pop and had immediate pain in her back - exact location of pop not clear. She fell to the ground and eventually crawled to the phone to call EMS, and was transported to [facility]. When returning home she will have to climb 12 stairs to her apartment, and has to care for two cats who have food dishes and litterboxes on the floor. Pain: 6/10 on VAS Pain location: Central low back, L>R. Objective: General Observation: Sitting at edge of recliner chair, talking on phone. Walker near by. In no distress Mental Status: A & O x 3 Vital Signs: BP 148/71, HR 65 ROM: Right Upper Extremity: Grossly WFL Left Upper Extremity: Grossly WFL Right Lower Extremity: Grossly WFL - passive hip range offering mild increase in central LB Left Lower Extremity: Grossly WFL - passive hip range offering mild increase in central LB Lumbar spine: Flex 20*, ext 5*, bilat SB 5*, bilat rotation 5*. All painful, with no direction offering more pain than another. Stiffness and guarding noted throughout, so movement dysfunction otherwise difficult to assess. Passive lumbar flexion via DKTC, offers central LBP. Strength: Bilat Upper Extremities: Grossly 4+/5 throughout, with pain induced in LB with resistance to flexion and abduction of shoulders. Bilateral Lower Extremities: Grossly 4+/5 throughout, mild pain induced with hip flexion resistance. Neuro: LE DTR's unable to elicit, myotomes and dermatomes intact. Negative Babinski. Bed Mobility/Transfers: Sit to stand at RW, S Stand to sit at chair with RW, S Bed to chair (<>) with RW, S Bed mobility with HOB at 0*, S EOB to supine (HOB 0*), SBA, log roll technique Supine (HOB 0*) to EOB, with 1 rail, S Gait: RW, 40 ft, symmetrical stance, decreased lacho, cautious. Denies attempt of stair ambulation secondary to pain. ADL's: Stood to brush teeth and independently performed On/off commode with RW with distant supervision, able to pull on/off underwear, and perform self hygiene. Unable to bend forward to get object off floor or reach foot to don/doff socks or shoes. Balance: Static Sitting: Good Dynamic Sitting: Fair, limited by pain Static Standing: Good, with RW Dynamic Standing: Poor, limited by pain, with RW Special Tests: Mobility Limitations Standardized Measure [facility] AM-PAC 6 clicks Basic Mobility Inpatient Short Form: 41% disability SLR: 70* bilateral, diffuse LBP throughout range. No dural symptoms LE traction: Increase LBP, unilaterally and bilaterally Slump: deferred due to pain Passive flexion bilat LE's: slight increase to central LBP Compression: Deferred due to pain. Posture: Mild elevation of R ilium, but in the setting of spinal curvature, mild thoracic kyphosis Palpation: TTP L SI region and sacral border, but minimal muscle tension appreciated. Otherwise palpation assessment unremarkable. Informed Consent/Education: Patient instructed in purpose of PT consult and plan of care. Treatment: Initial evaluation Manual therapy: Grade 1 an 2 progressing to grade 3-- double and unilateral knee to chest oscillations, supine twist to 40* bilaterally (with more pain at L), hooklying lumbar rotation rocking via LE's, gentle mullgian traction with SLR to tolerance. STM L sacral border, SI junction, and paraspinals Therapeutic activity: Skilled verbal cues and supervision for guidance with sit to stand (vice versa) and bed to chair (vice versa) and supine to sit (vice versa) Assessment: Patient is a 75 year old female referred to physical therapy services with the diagnosis of acute intractable lumbar pain, with negative x- ray. Patient presents with clinical signs and symptoms consistent with referred diagnosis with history of osteoporosis and thoracic compression fractures. At this time she is not clinically presenting with disc involvement, but does complain of a lot of pressure in the low back. Due to her osteoporosis and compression fracture history of thoracic spine, diagnostics of t-spine recommended to rule out new fracture, which could allow for referral pain to lumbar region. Patient will require RW at time of discharge for pain management and safety with functional ambulation and transfers. Impairments: Limited lumbar and thoracic ROM Scoliosis and postural kyphotic deficit Mild weakness UE and hip flexors, secondary to pain inhibition Poor balance secondary to pain Mild soft tissue tenderness L sacral region Functional deficits secondary to impairments: Intolerant to ambulation with reliance on walker for safety and pain management Requires use of bed rail for getting out of bed Unable to attempt stair ambulation Unable to tolerate animal care and self care involving forward bending Patient is assessed as a Moderate 49692 complexity based on the following: History: See above medical hx Examination: See above impairments and functional limitations Presentation: Evolving Decision Making: Moderate, with 41% disability based on [facility], 70 minute treatment time. Goals: Goals X1 week 1. Supine-Sit Independent 2. Sit-Supine Independent with RW 3. Sit-Stand Independent with RW 4. Stand-Sit Independent with RW 5. Bed-Chair Independent with RW 6. Chair-Bed Independent with RW 7. Gait 60 ft independent with RW 8. Stairs 12, with 2 rails, close supervision 9. Independent with home exercise program 10. Balance Good with RW with dynamic and static standing activities Plan of Care/Treatment Plan: 1-2x/day, 7 days/week x 1 week. Plan of care has been reviewed with the [facility] providing the service under Physical Therapy direction. Initiate Physical Therapy intervention for strengthening, bed mobility, transfers, gait, stairs, balance training, manual therapy and use of assistive device. DISCHARGE RECOMMENDATIONS: Home. If patient demonstrates struggle and lack of safety with stair ambulation, which is hopefully to be assessed tomorrow, HHPT will be appropriate until she can get out of her apartment. Otherwise, if she demonstrates safety with stair ambulation outpatient PT is appropriate. She has to be able to navigate 12 stairs, safely. She will require a walker for safety with ambulation. When she is able to safely navigate 12 stair she will be appropriate for discharge. Recommend OT evaluation prior to discharge, however, to insure all self care abilities. TREATMENT CODE/TIME: 19691, 90538, 54320, RILEY. 70 minutes, 9:00 -10:10 a.m.
--- NOTE | 2020-08-05 11:23 | W.PM.PROGNOT ---
Date of Service Date of service: 08/05/20 Time of Service: 11:23 Assessment and Plan Assessment and plan (1) Intractable low back pain: Start date: 08/05/20 Start time: 11:31 Status: Acute Assessment and plan: Will give ketorlac, nucynta, methocarbinal, volatren gel, for pain, PT continue to ambulate every hour (2) Compression fracture: Start date: 08/05/20 Start time: 11:34 Status: Chronic Assessment and plan: Old as above. above case discussed with Marissa Subjective Subjective Interval history since last seen: Up and ambulating around the room. Pain radiates across the back will trial ketorlac, nucynta, voltaren gel, and methocarbonal, PT would like her to trial stairs tomorrow prior to discharge. Exam Const General: cooperative, healthy appearing, comfortable and no acute distress Nutritional Appearance: average body habitus Orientation: alert, awake and oriented x3 Eyes Pupils: PERRL EOM: EOM intact bilaterally Neck Neck: normal visual inspection, full ROM and no lymphadenopathy Lymphatic: no lymphadenopathy noted Resp Effort & Inspection: normal respiratory effort Auscultation: clear to auscultation bilaterally Cardio Jugular venous pressure: no JVD Rate: regular rate Rhythm: regular rhythm Heart Sounds: S1 normal and S2 normal GI Inspection: normal to inspection Palpation: soft and no hepatosplenomegaly General: deferred Back/Spine/Pelvis Other: back pain across lower back, ambulatory Skin General skin exam: no rashes or lesions noted Neuro General: patient alert, patient awake and patient oriented x3 Cognition: normal cognition Speech: speech normal Extrem General: full ROM and no clubbing, cyanosis or edema Objective Last Vital Signs Temp 36.7 C 08/05/20 08:00 Pulse 60 08/05/20 08:00 Resp 18 08/05/20 08:00 BP 157/91 H 08/05/20 08:00 Pulse Ox 95 08/05/20 08:00 Laboratory Results - last 24 hr 08/04/20 08/04/20 08/05/20 15:40 15:40 06:25 WBC 11.92 H RBC 4.28 Hgb 14.1 Hct 41.0 MCV 95.8 H MCH 32.9 MCHC 34.4 RDW 13.0 Plt Count 179 MPV 10.2 Immature Gran % Neutrophils % Lymphocytes % Monocytes % Eosinophils % Basophils % Nucleated RBC % Absolute Neutrophils Absolute Lymphocytes Absolute Monocytes Absolute Eosinophils Absolute Basophils Sodium 139 140 Potassium 3.6 3.7 Chloride 105 106 Carbon Dioxide 23.5 26.8 Anion Gap 10.5 7.2 BUN 14 15 Creatinine 0.8 0.7 Estimated GFR/1.73 m2 >= 60.00 >= 60.00 Glucose 126 H 100 Calcium 8.7 9.2 Total Bilirubin 0.7 AST 13 L ALT 21 Alkaline Phosphatase 90 Total Protein 6.0 L Albumin 3.2 L 08/05/20 06:25 WBC 6.72 D RBC 4.20 Hgb 13.5 Hct 40.2 MCV 95.7 H MCH 32.1 MCHC 33.6 RDW 13.2 Plt Count 162 MPV 10.9 Immature Gran % 0.1 Neutrophils % 69.1 Lymphocytes % 19.9 Monocytes % 6.1 Eosinophils % 3.6 Basophils % 1.2 Nucleated RBC % 0 Absolute Neutrophils 4.64 Absolute Lymphocytes 1.34 Absolute Monocytes 0.41 Absolute Eosinophils 0.24 Absolute Basophils 0.08 Sodium Potassium Chloride Carbon Dioxide Anion Gap BUN Creatinine Estimated GFR/1.73 m2 Glucose Calcium Total Bilirubin AST ALT Alkaline Phosphatase Total Protein Albumin
[2020-08-05] MEDS: Diclofenac 1% Gel 100 GM TUBE TP ×2 (12:05→20:12)
--- NOTE | 2020-08-05 13:25 | PDOC.CMIN ---
- If Service Date Differs Date of service: 08/05/20 Time of Service: 13:25 Care Management Initial Assess REASON FOR HOSPITALIZATION:: Intractable Lumbar Back pain PAST MEDICAL HISTORY/PAST SURGICAL HISTORY:: Medical History. Abnormal laboratory test result. Breast lump (11/02/02). Closed fracture of rib. Depressive disorder. Eczema of hand (12/18/14). Essential hypertension (04/20/13). Foot pain, right. Grief (12/18/14). Hiatal hernia (09/02/01). EGD CONFIRMED. NORMAL BARIUM SWALLOW. History of echocardiogram. Hypokalemia (06/17/12). Onychomycosis (02/02/17). Osteoporosis (09/02/01). T -4.5. Paroxysmal atrial fibrillation. Smoker (07/25/08). Standard chest x-ray abnormal. Surgical History. section (05/19/75). Colonoscopy - MAC (06/08/07). ECHO (10/15/12). PAROXYSMAL A-FIB ([facility]). EGD - MAC (~2001). HH. History of section. History of esophagogastroduodenoscopy PREVIOUS FUNCTIONAL STATUS/SOCIAL/FAMILY SUPPORTS:: Dilma lives in [facility], alone. She has two children, who both live nearby, and she considers supportive. She is . She is independent at baseline. CURRENT FUNCTIONAL STATUS:: Dilma was sitting up eating her lunch when CM met with her. She stated that she is still having pain, and per provider, she will remain at [facility] for another night. She is agreeable to this, as she is hoping to have better pain control at home. She worked with PT today, and she will again tomorrow. She lives on the second floor, so she will need be maneuver stairs upon her discharge. CM will continue to follow. ADVANCE DIRECTIVES:: On file, and Delmy (children) listed as agents. Has patient been provided with info about the portal/API?: No Did the patient sign up for the portal?: No CODE STATUS:: Full Code INSURANCE COVERAGE / FINANCIAL ISSUES:: MCR/ BCBS CURRENT HOME/COMMUNITY SERVICES/EQUIPMENT:: No current services or equipment PRIMARY CARE PHYSICIAN:: Dr. Min POTENTIAL DISCHARGE NEEDS:: Evaluations for further needs, HH PT, follow up appointmtents. PATIENT/FAMILY EDUCATION NEEDS:: Review discharge instructions regarding activity levels and medications, discussion of self care needs and goals of care. ANTICIPATED BARRIERS TO DISCHARGE:: None identified at this time. TRANSPORTATION:: Via private vehicle by family. PLAN:: Anticipate Dilma will return home when medically cleared. She may require HH PT, as it is difficult for her to get out of her home currently, which she is agreeable to. She will be driven home via private vehicle by family. She will follow up with her PCP and discharge plan of care. CM will continue to follow.
[2020-08-05 20:12] LABS: COVID-19 RT-PCR UVMMC Result Negative (Negative)
[2020-08-05] MEDS: Polyethylene Glycol 3350 17 GM PACKET PO (23:43)
[2020-08-06 03:45] VITALS: BP 169/97; PULSE 65; RESP 12; TEMP 36.6; O2SAT 94
[2020-08-06] MEDS: Heparin 5,000 UNITS/ML VIAL 5000 UNITS SC (05:22)
[2020-08-06] MEDS: Metoprolol CR 25 MG TABCR (05:22)
[2020-08-06 06:37] VITALS: BP 168/100; PULSE 60; RESP 14; TEMP 37; O2SAT 97
[2020-08-06] MEDS: Polyethylene Glycol 3350 17 GM PACKET PO (07:35)
[2020-08-06] MEDS: Nicotine 14 MG/24 HR PATCH TD (07:35)
[2020-08-06] MEDS: Calcium Carbonate 1.5 GM TAB PO (07:36)
[2020-08-06] MEDS: LORazepam 0.5 MG TAB PO (07:36)
[2020-08-06] MEDS: Acetaminophen 325 MG TAB 650 MG PO (07:36)
[2020-08-06] MEDS: Docusate Sodium 100 MG CAP PO (07:36)
[2020-08-06] MEDS: Cholecalciferol (Vitamin D3) 1,000 UNIT TAB 1000 UNITS PO (07:36)
[2020-08-06] MEDS: Multivitamin TAB 1 TAB PO (07:36)
[2020-08-06] MEDS: Ascorbic Acid 500 MG TAB PO (07:36)
[2020-08-06] MEDS: Aspirin 81 MG CHEW CH (07:37)
[2020-08-06] MEDS: Diclofenac 1% Gel 100 GM TUBE TP ×2 (09:57→12:39)
--- NOTE | 2020-08-06 10:26 | PT.INTREAT ---
Date of service: 08/06/20 Time of Service: 09:30 PT Notes Visit Reasons: INTRACTIBLE LUMBAR BACK PAIN Inpatient Physical Therapy Treatment Note [facility] Date: 08/06/2020 PRECAUTIONS: Fall SUBJECTIVE: Dilma states that she is having a rough day, emotionally. She reports that she is not used to being so confined and sedentary. She also reports that today was her '[birth year] birthday. She reports that she took a walk around the hallways with her walker, independently, this morning. OBJECTIVE: PAIN: Patient c/o back pain, specifically in her cervical spine BED MOBILITY/TRANSFERS Rolling L/R: I Supine-sit: I Sit-supine: I Sit-stand: I Stand-sit: I Bed-Chair: I Chair-bed: I GAIT Assistive Device: FWW Weight bearing: Full Assist: I Distance: 300' MANUAL THERAPY: With patient in R side-lying, performed STM and TPR techniques throughout sacral boarder, lumbar paraspinals, and glutes. STAIRS: Up/down 9x4 and 6x6 using B rails and a step-to pattern with supervision. Patient required cueing for sequence for pain management. ASSESSMENT: Patient tolerated session with c/o back pain, specifically in cervical spine. She demonstrates independence with bed mobility, transfers, and gait with FWW at this time. PLAN: Continue with PT for manual therapy and core strengthening for pain management, on an outpatient basis. TREATMENT CODE/TIME: 40 minutes; 82719 x2, [id number]
--- NOTE | 2020-08-06 10:47 | DSE_ITS ---
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 She received Toradol, hydromorphone, Lidoderm patch, oxycodone but continued to report persistent pain she rates 4 out of 10 at rest and 7 out of 10 with any movement. She was referred to observation on med/surg under hospitalist services for pain management and PT consult. She has been responding to treatment with nucynta, robaxin and lidoderm and has been seen by PT who recommends home health services for PT/OT. She will be discharged to home with referral placed. discharge discussed with DR Ann. Home Meds and New Rx's Prescriptions: New polyethylene glycol 3350 17 gram Powder In Packet 17 g PO DAILY PRN PRN (Reason: Constipation) Qty: 0 RF: 0 Nucynta 50 mg Tablet 50 mg PO Q6H PRN PRNQty: 16 RF: 0 methocarbamol 750 mg tablet 750 mg PO TID PRNQty: 20 RF: 0 Continued fluticasone propionate 50 mcg/actuation spray,suspension 2 spray HAYLEY DAILY PRNRF: 0 calcitonin (salmon) 200 unit/actuation spray,non-aerosol 1 spray INTRANA AL DAILY Qty: 3.7 RF: 3 multivitamin [Once Daily] 1 EACH tablet 1 tab PO DAILY RF: 0 ascorbic acid (vitamin C) [Vitamin C] 500 MG tablet 500 mg PO DAILY RF: 0 JOHANNA RED 1 cap PO DAILY RF: 0 BABY ASPIRIN 81 MG TAB.CHEW 81 mg PO DAILY RF: 0 albuterol sulfate [ProAir HFA] 90 mcg/actuation HFA aerosol inhaler 2 puff Inhalation Q4H PRN Qty: 8.5 RF: 7 lorazepam 0.5 mg tablet 0.5 mg PO BID PRN (Reason: agitation) Qty: 30 RF: 0 calcium carbonate [Caltrate 600] 600 MG tablet 600 mg PO BID RF: 0 cholecalciferol (vitamin D3) 1,000 UNITS tablet 1,000 unit PO DAILY RF: 0 lidocaine [Lidoderm] 5 % adhesive patch,medicated 1 patch TP DAILY PRN (Reason: pain) Qty: 15 RF: 0 metoprolol succinate 25 mg tablet extended release 24 hr 25 mg PO DAILY RF: 0 Changed acetaminophen [Tylenol Extra Strength] 500 MG tablet 500 mg PO QID Qty: 0 RF: 0 ibuprofen [Motrin IB] 200 MG tablet 400 mg PO PC Qty: 0 RF: 0 Discharge Instructions Instructions: Vertebral Compression Fracture (DC) Additional Instructions: take all medications as prescribed no bending or lifting. continue instructions for activity reviewed with physical therapy Stand Alone Forms: Nursing Discharge Form Referrals: Annie Min MD, [place] [Primary Care Provider] - 08/09/20 9:40 am Activity:: no lifting or bending Equipment/Supplies:: Walker Diet:: As Tolerated Discharge Orders Discharge Orders: Discharge Order (Routine); Ordered 08/06/20 Ordered By: Wendy Bennett DS: Summary Time Spent with Patient providing and/or coordinating discharge services: Greater than 30 minutes Status at Discharge Functional status at discharge: uses cane/walker Overall status at discharge: patient is progressing back to baseline Mental Status: mental status grossly normal Speech and Movement: speech and movement normal Mood: congruent mood Affect: normal affect Exam Const General: cooperative, healthy appearing, comfortable and no acute distress Nutritional Appearance: average body habitus Orientation: alert, awake and oriented x3 Eyes Pupils: PERRL EOM: EOM intact bilaterally Neck Neck: normal visual inspection, full ROM and no lymphadenopathy Lymphatic: no lymphadenopathy noted Resp Effort & Inspection: normal respiratory effort Auscultation: clear to auscultation bilaterally Cardio Jugular venous pressure: no JVD Rate: regular rate Rhythm: regular rhythm Heart Sounds: S1 normal and S2 normal GI Inspection: normal to inspection Palpation: soft and no hepatosplenomegaly General: deferred Skin General skin exam: no rashes or lesions noted Neuro General: patient alert, patient awake and patient oriented x3 Cognition: normal cognition Speech: speech normal Extrem General: full ROM and no clubbing, cyanosis or edema Psych Mental Status: mental status grossly normal Speech and Movement: speech and movement normal Mood: congruent mood Affect: normal affect DS: Data Vitals/I&O Vitals and I&O: Vital Signs Temperature 37.0 C 08/06/20 06:37 Temperature Source Tympanic 08/06/20 06:37 Pulse 60 08/06/20 06:37 Pulse Rhythm Regular 08/05/20 23:30 Respiratory Rate 14 08/06/20 06:37 Respiratory Effort Non-Labored 08/05/20 23:30 Respiratory Depth Normal 08/05/20 23:30 Respiratory Pattern Normal 08/05/20 23:30 Blood Pressure 168/100 H 08/06/20 06:37 Blood Pressure Mean 96 08/04/20 19:03 Blood Pressure Position Sitting 08/04/20 14:35 Pulse Oximetry 97 08/06/20 06:37 Oxygen Delivery Method Room Air 08/06/20 06:37 Oxygen Flow Rate 0 08/06/20 06:37 Pain Level 5 08/06/20 07:36 Intake & Output 08/05/20 08/05/20 08/06/20 11:59 23:59 11:59 Intake Total 390 / 630 240 / 630 Output Total 350 / 1100 750 / 1100 300 / 300 Balance 40 / -470 -510 / -470 -300 / -300 Intake: IV Oral 360 / 600 240 / 600 Output: Urine 350 / 1100 750 / 1100 300 / 300 Other: Urine Color Yellow Pale Yellow Yellow Urine Appearance Clear Clear Clear Urine Odor Normal Normal Normal Voiding Methods Toilet Toilet Toilet Data Completed and Pending Labs on day of discharge: Labs from last 24 hours 08/04/20 19:00 SARS-CoV-2 (PCR) Negative Nasopharyn COVID-19 PCR Not Applicable Ref Test Perform Site [facility] lab [facility] Medical History (Updated 08/05/20 @ 07:04 by Tyler Vega) Abnormal laboratory test result Breast lump (11/02/02) Closed fracture of rib Depressive disorder Eczema of hand (12/18/14) Essential hypertension (04/20/13) Foot pain, right Grief (12/18/14) Hiatal hernia (09/02/01) EGD CONFIRMED. NORMAL BARIUM SWALLOW History of echocardiogram Hypokalemia (06/17/12) Onychomycosis (02/02/17) Osteoporosis (09/02/01) T -4.5 Paroxysmal atrial fibrillation Smoker (07/25/08) Standard chest x-ray abnormal Surgical History section (05/19/75) Colonoscopy - MAC (06/08/07) ECHO (10/15/12) PAROXYSMAL A-FIB ([facility]) EGD - MAC (~2001) HH History of section History of esophagogastroduodenoscopy Family History Mother , 97 Rectal cancer Father , 75 COPD (chronic obstructive pulmonary disease) Sister , 73 Neoplasm BREAST Breast cancer Sister Diabetes COPD (chronic obstructive pulmonary disease) Hyperlipidemia Brother Essential hypertension Hyperlipidemia Maternal Grandfather , 73 Depression Paternal Grandfather , 73 Stroke Maternal Grandmother , 65 Lung cancer Paternal Grandmother , 78 No problems noted. Son No problems noted. Daughter No problems noted. Social History Smoking/Tobacco Use Status: Current every day Tobacco Type: cigarettes Second Hand Exposure: Yes Smoking risk assessment performed?: Yes Alcohol Intake: current Alcohol Intake frequency: 0-2 drinks per day Alcohol type: beer Drug use: Never Substance use type: does not use Caregiver/Support person: No Household members: none Housing: apartment Communication Needs: Corrective Lenses Do you need help understanding health information?: Rarely Pets and animals: Yes Pets and animals: cat(s) Sexually active: No Do you think of yourself as: straight/heterosexual Current gender identity: female What is your relationship status?: How often do you talk on the phone with friends or family?: twice per week How often do you get together with friends or relatives?: twice per week How often do you attend episcopalian or episcopal services?: 4 or more times per year Do you belong to any clubs or organized social groups?: no Panel score (0-1 are the most socially isolated patients): 2 What type of physical activity do you participate in: walking and other Details: Murphy Ball, Bill Chi, stationary bike Duration: 15-30 minutes/day Frequency: 3-4 times per week Komal/Caodaism: Denominational Special komal needs: No Seatbelt use: always Drive intox or ride w/intox explosives truck driver: No Do you feel safe at home: Yes Do you feel safe in your relationship?: Yes
--- NOTE | 2020-08-06 13:24 | CMDISCH_ITS ---
- If Service Date Differs Date of service: 08/06/20 Time of Service: 13:24 LACE Index Scoring Tool - Questions: Length of Stay (in days): 2 Acuity (Admit via E.D.?): Yes E.D. Visits: 3 - Answers: Total Score: 8 Risk of Readmission: Low Risk Care Management Discharge Reason for Hospitalization: Intractable Lumbar Back pain Discharge Plan: Dilma will return home with no new services, although she will be provided with a walker. She will be driven home via private vehicle by [employer]. She will follow up with her PCP and discharge plan of care. Patient/Family Education Needs: Review discharge instructions regarding activity levels and medications, discussion of self care needs and goals of care.
--- NOTE | 2020-08-06 13:41 | PDOC.HHF2F_ITS ---
Home Health Certification Home Health Certification: 1. Encounter Date and Reason I certify that KRISTY WILLIAMSON was seen by Wendy Bennett on 08/06/20 and that I had a [id number] encounter with this patient that meets the physician face to face encounter requirements. 2. Clinical Findings Supporting Skilled Need and Homebound Status I certify that home health services are medically necessary, include either intermittent senior care and/or physical/speech therapy, and that this patient is homebound in that absences from the home require considerable and taxing effort and are infrequent or of short duration, or are attributable to the need to receive medical care. [X] (a) Attached documentation from encounter provides clinical findings supporting skilled need and homebound status (including what assistance patient requires to leave the home). The encounter with the patient was in whole, or in part, for the following medical condition, which is the primary reason for home health care: INTRACTIBLE LUMBAR BACK PAIN Physical and Occupational Therapy: routine evaluation and treatment to help restore ability to ambulate independently and safely, assess ADL and self care, work on home maintenance program. Homebound: patient is unable to leave home unassisted and ambulation is severely limited d/t pain and decreased strength and endurance. 3. Certification and Authentication I certify that I composed the above information based on my clinical judgement relating to this patient's medical condition and, if applicable, clinical findings communicated to me by the NPP or inpatient physician who performed the Home Health Referral. All further orders will be obtained through (Community Based Physician - PCP)
--- NOTE | 2020-08-07 13:24 | INDS_ITS ---
Date of service: 08/07/20 PT Notes Visit Reasons: INTRACTIBLE LUMBAR BACK PAIN Inpatient Physical Therapy Discharge Summary Date: 08/07/2020 Dates of service: 08/05/2020 through 08/06/2020 This is a clinical summary of care provided on the duration of dates listed above. No charge was made in the completion of this documentation. Referring Doctor: Tyler Vega PT Orders: PT CONSULT: Limited ability Precautions: Standard. Activity as tolerated. Patient Profile/Admitting Diagnosis: 75 yo female with acute central LBP, without radiculopathy after lifting vacuum 08/04/20. Has a history of thoracic compression fractures and osteoporosis. Negative lumbar x-ray. PMHX: Medical History (Updated 08/05/20 @ 07:04 by Tyler Vega) Abnormal laboratory test result Breast lump (11/02/02) Closed fracture of rib Depressive disorder Eczema of hand (12/18/14) Essential hypertension (04/20/13) Foot pain, right Grief (12/18/14) Hiatal hernia (09/02/01) EGD CONFIRMED. NORMAL BARIUM SWALLOW History of echocardiogram Hypokalemia (06/17/12) Onychomycosis (02/02/17) Osteoporosis (09/02/01) T -4.5 Paroxysmal atrial fibrillation Smoker (07/25/08) Standard chest x-ray abnormal Surgical History section (05/19/75) Colonoscopy - MAC (06/08/07) ECHO (10/15/12) PAROXYSMAL A-FIB ([facility]) EGD - MAC (~2001) HH History of section History of esophagogastroduodenoscopy Social History/Home Situation: Lives in a second floor apartment, alone. Premorbid level of function was independent. She has two cats. She has 12 stairs to enter her apt with 2 rails. She has two children who live nearby. Current Functional Limitations: Requires RW for ambulation and transfers, supervision with transfers, requires bed rail to get in and out of bed. Non-tolerant to stair climbing, or walking beyond 20 ft Equipment Owned/DME: None Subjective: NT. See most recent WEB DESIGNER DEVELOPER notes. Pain: NT. See most recent WEB DESIGNER DEVELOPER notes. Pain location: NT. See most recent WEB DESIGNER DEVELOPER notes. Objective: General Observation: NT. See most recent WEB DESIGNER DEVELOPER notes. Mental Status: NT. See most recent WEB DESIGNER DEVELOPER notes. Vital Signs: NT. See most recent WEB DESIGNER DEVELOPER notes. All yes ROM: Right Upper Extremity: Grossly WFL Left Upper Extremity: Grossly WFL Right Lower Extremity: Grossly WFL - passive hip range offering mild increase in central LB Left Lower Extremity: Grossly WFL - passive hip range offering mild increase in central LB Lumbar spine: Flex 20*, ext 5*, bilat SB 5*, bilat rotation 5*. All painful, with no direction offering more pain than another. Stiffness and guarding noted throughout, so movement dysfunction otherwise difficult to assess. Passive lumbar flexion via DKTC, offers central LBP. Strength: Bilat Upper Extremities: Grossly 4+/5 throughout, with pain induced in LB with resistance to flexion and abduction of shoulders. Bilateral Lower Extremities: Grossly 4+/5 throughout, mild pain induced with hip flexion resistance. Bed Mobility/Transfers: Sit to stand at RW independently Stand to sit at chair with RW independently Bed to chair (<>) with RW independently Bed mobility with HOB at 0* independently EOB to supine (HOB 0*), SBA independently Supine (HOB 0*) to EOB, with 1 rail independently Gait: Up to 300 feet using front wheeled walker with full weight bearing independently. Stairs: Up and down hallway X 4 inch steps and 6 x 6 inch steps while holding onto bilateral rails with step to gait pattern requiring supervision assist and minimal to moderate verbal cues for sequence and pain management. Balance: Static Sitting: Good Dynamic Sitting: Fair, limited by pain Static Standing: Good, with RW Dynamic Standing: Poor, limited by pain, with RW Informed Consent/Education: Patient instructed in purpose of PT consult and plan of care. Assessment: Jo demonstrates significant functional improvement during this episode of care as shown by goal status below. Goals: Goals X1 week 1. Supine-Sit Independent MET 2. Sit-Supine Independent with RW MET 3. Sit-Stand Independent with RW MET 4. Stand-Sit Independent with RW MET 5. Bed-Chair Independent with RW MET 6. Chair-Bed Independent with RW MET 7. Gait 60 ft independent with RW MET 8. Stairs 12, with 2 rails, close supervision NOT MET 9. Independent with home exercise program NOT MET 10. Balance Good with RW with dynamic and static standing activities NOT MET DISCHARGE RECOMMENDATIONS: Patient will benefit from home health PT services in order to progress mobility level using least restrictive assistive ambulatory device, assess home safety, identify additional equipment needs, and establish a functional maintenance program that will increase ability of patient to remain at home. TREATMENT CODE/TIME: NC. Thank you for the opportunity to participate in the care of this patient. Kinga Puente PT, DPT, CLT [facility] [place], [place]
== END 2020-08-06 13:41 | disposition home health service (06) ==
LOC: ER 18:30 → MS 19:08
PROVIDERS: Admitting Provider Family Medicine; Emergency Provider Emergency Medicine; PCP Family Medicine; Visit Provider Family Medicine
DX: M51.37 Other intervertebral disc degeneration, lumbosacral region (principal); M54.5 Low back pain; M48.54XD Collapsed vertebra, not elsewhere classified, thoracic region, subsequent encounter for fracture with routine healing; F17.210 Nicotine dependence, cigarettes, uncomplicated; M81.0 Age-related osteoporosis without current pathological fracture; F32.9 Major depressive disorder, single episode, unspecified; I10 Essential (primary) hypertension; I48.0 Paroxysmal atrial fibrillation
CPT/HCPCS: 36415; 80048; 80053; 85027; 96374; 96375; 97110; 97140; 97162; 97530; 99217; 99219; 99226; 99285; U0003; 72100; 85025; 99284; G0378; J1644; J1885

== ENCOUNTER 2020-08-21 01:05 | Outpatient (CLI) | payer MEDICARE, BC, SELFPAY ==
--- NOTE | 2020-08-21 07:30 | DI.MRI_ITS ---
EXAM: MR LUMBAR SPINE WO CLINICAL HISTORY: LOW BACK PAIN, INTRACTABLE,OSTEOPOROSIS, M54.5,M81.0. TECHNIQUE: Multiplanar multisequence MRI was performed. COMPARISON: CT CT THORAX ABD/PEL CTA from 07/06/2020 CR,XR XR LUMBAR SPINE AP, LAT from 08/04/2020 FINDINGS: MR examination the lumbosacral spine was performed according to the usual protocol. Note is made of a new mild compression fracture of the L1 vertebral body, this involves superior endplate as well as the anterior and posterior bony cortex of the vertebral body. This fracture was not present on prior lumbar spine radiographs of August 04 or on prior abdominal CT images of July 06. Findings a re consistent with acute or subacute compression fracture. There is fairly normal marrow signal seen on T2 weighted imaging except for platelike area low signal seen in the superior portion of the vert ebral body consistent with compression fracture. The T1 weighted images show decreased signal in the entire vertebral body and the pedicles bilaterally. Pathological fracture is not excluded but is un likely given the lack of other areas of bony signal abnormality and the presence of multiple known th oracic compression fractures as seen on prior CT of July 06. At the superior endplate of L1 posteriorly, there is mild retropulsion of vertebral body fragment, th is is retropulsed by 3-4 millimeters and does not impinge the adjacent conus medullaris. No significant vertebral or disc abnormalities at the T10-11 or T11-12 levels. At L1-2, there is no evidence of a disc herniation, central canal spinal stenosis, or neural foramina l stenosis. At L2-3, there is a moderate disc bulge without evidence of focal disc herniation. There are mild hy pertrophic facet changes at this level. There is no evidence of central canal spinal stenosis or dorothy ral foraminal stenosis. At L3-4, there is prominent disc bulge with possible mild right lateral disc herniation. There is mi ld central canal spinal stenosis. No definite neural foraminal stenosis seen. At L4-5, there is a moderate disc bulge without evidence of a focal disc herniation. There is no mer dence of central canal spinal stenosis or neural foraminal stenosis. Mild hypertrophic facet changes noted. At L5-S1, there is mild disc bulge, no evidence of a focal disc herniation, central canal spinal sten osis, or neural foraminal stenosis. IMPRESSION: New L1 compression fracture involving anterior cortex, superior endplate, and posterior cortex of the vertebral body with mild retropulsion of 3-4 millimeters of the posterior superior vertebral cortex. No definite neural impingement. Doubt pathologic fracture. Additional degenerative changes at multiple levels, mild central canal spinal stenosis at L3-4. DATA REPOSITORY:
== END 2020-08-21 01:06 ==
LOC: DI 01:06
PROVIDERS: PCP Family Medicine; Visit Provider Family Medicine
DX: S32.010A Wedge compression fracture of first lumbar vertebra, initial encounter for closed fracture (principal); M48.061 Spinal stenosis, lumbar region without neurogenic claudication; M81.0 Age-related osteoporosis without current pathological fracture
CPT/HCPCS: 72148

== ENCOUNTER 2021-04-11 02:23 | Outpatient (CLI) | payer MEDICARE, BC, SELFPAY ==
--- NOTE | 2021-04-11 08:45 | DI.CTLCSR_ITS ---
Exam(s) CT CHEST LUNG CANCER SCREEN EXAM: CT CHEST LUNG CANCER SCREEN CLINICAL HISTORY: Screening for lung cancer,CURRENT SMOKER, F17.210 TECHNIQUE: Imaging Protocol: Axial computed tomography images with coronal and sagittal reformatted images were created and reviewed COMPARISON: CT CT CHEST LUNG CANCER SCREEN from 07/18/[address] THORAX ABD/PEL CTA from 07/06/2020 MR MR LUMBAR SPINE WO from 08/21/2020 MR MR LUMBAR SPINE WO from 08/21/2020 FINDINGS: Tracheobronchial tree: Patent where visualized. Pulmonary parenchyma: No consolidation or dominant measurable mass. No architectural distortion. Mult iple calcified granuloma. Lung Nodules: No noncalcified pulmonary nodules. Mediastinum and Yumiko: No dominant adenopathy or fluid collection. Calcified lymph nodes are seen in t he mediastinum consistent with prior granulomatous disease. Thyroid gland: Unremarkable. Pleura: No effusion or pneumothorax. Heart: The heart is not dilated. Coronary artery calcification. No pericardial effusion. Aorta: Thoracic aorta non-dilated.Atherosclerosis. Upper abdomen: Unremarkable. Soft Tissues: Unremarkable. Bones: Old T7, T9 and L1 compression fractures. Osteopenia. Degenerative changes in the spine. IMPRESSION: 1. No noncalcified pulmonary nodules. 2. Findings of prior granulomatous disease. 3. Stable T7, T9 and L1 compression fractures. Category Lung-RADS 1.0 CATEGORIES: Category 0 - Prior chest CT exam(s) being located for comparison. Category 1 - Annual screening in 12 months. No nodules or definitely benign nodules. Category 2 - Annual screening in 12 months. Benign appearance. Nodules with low likelihood of becomin g active cancer. Category 3 - 6-month follow-up. Probably benign. Short-term follow-up suggested. Nodules with low lik elihood of becoming active cancer. Category 4A - 3-month follow-up and CT/PET if >8 mm in size. Suspicious finding. Findings which requi re additional testing. Category 4B - Findings which require additional testing and tissue sampling. Suspicious finding. Modifier S- Potentially clinically significant finding. (Non lung cancer) RADIATION DOSE DELIVERED: 69.66mGy.cm Total DLP CTDIvol 69.66mGy.cm Total DLP CTDIvol DATA REPOSITORY: All CT scans at this facility are submitted to the National Radiology Data Registry (NRDR) Dose Index Registry (DIR) with the [employer] (ACR). RADIATION OPTIMIZATION: All CT scans at this facility use at least one of these dose optimization te chniques: automated exposure control; mA and/or kV adjustment per patient size (includes targeted exa ms where dose is matched to clinical indication); or iterative reconstruction.
== END 2021-04-11 02:43 ==
PROVIDERS: PCP Family Medicine; Visit Provider Family Medicine
DX: F17.210 Nicotine dependence, cigarettes, uncomplicated (principal); Z12.2 Encounter for screening for malignant neoplasm of respiratory organs; Z72.0 Tobacco use; D71 Functional disorders of polymorphonuclear neutrophils
CPT/HCPCS: 71271

== ENCOUNTER 2021-05-20 14:52 | Outpatient (REF) | payer MEDICARE, BC, SELFPAY ==
[2021-05-21 09:55] LABS: COVID-19 RT-PCR UVMMC Result Positive (Negative)
== END 2021-05-20 14:53 | disposition home or self-care (01) ==
LOC: LBN 14:52
PROVIDERS: PCP Family Medicine; Visit Provider Family Medicine
DX: Z20.822 Contact with and (suspected) exposure to COVID-19 (principal)
CPT/HCPCS: U0003; U0005

== ENCOUNTER 2021-05-22 01:57 | Outpatient (CLI) | payer MEDICARE, BC, SELFPAY ==
[2021-05-22 11:02] VITALS: BP 125/84; PULSE 73; RESP 18; TEMP 36.9; O2SAT 96
[2021-05-22 11:38] VITALS: BP 127/85; PULSE 67; TEMP 36.6; O2SAT 95
[2021-05-22 12:30] VITALS: BP 117/78; PULSE 84; TEMP 36.6; O2SAT 95
[2021-05-22 12:37] VITALS: BP 127/85; PULSE 67; TEMP 36.2; O2SAT 98
[2021-05-22 12:45] VITALS: BP 133/87; PULSE 73; TEMP 36.3; O2SAT 96
== END 2021-05-22 01:58 | disposition home or self-care (01) ==
LOC: INF 01:57
PROVIDERS: PCP Family Medicine; Visit Provider Family Medicine
DX: U07.1 COVID-19 (principal)
CPT/HCPCS: 96365

== ENCOUNTER → 2021-10-04 00:47 | Outpatient (CLI) | payer MEDICARE, BC, SELFPAY ==
--- NOTE | 2021-10-04 07:15 | DI.RAD_ITS ---
Exam(s) XR KNEE RT 3V AP,LAT,MIKAL EXAM: XR KNEE RT 3V AP,LAT,MIKAL CLINICAL HISTORY: r knee pain,m25.561. TECHNIQUE: 2D digital imaging was performed of the right knee. Three views obtained. AP, lateral an d PA tunnel views were obtained. COMPARISON: CR,XR XR LUMBAR SPINE AP, LAT from 08/04/2020 FINDINGS: BONES: No acute fracture is present. No bony destructive lesion is seen. A small enthesophyte is seen at the superior patella. JOINTS: There is narrowing of the femoral tibial joint. Periarticular spurring is seen in all 3 join t compartments. There is a small joint effusion. SOFT TISSUE: Normal. IMPRESSION: Degenerative changes of the right knee. DATA REPOSITORY: RADIATION DOSE DELIVERED:
== END ==
PROVIDERS: PCP Family Medicine; Visit Provider Family Medicine
DX: M25.561 Pain in right knee (principal); M17.11 Unilateral primary osteoarthritis, right knee
CPT/HCPCS: 73562

== ENCOUNTER 2021-10-31 02:07 | Outpatient (CLI) | payer MEDICARE, BC, SELFPAY ==
--- NOTE | 2021-10-31 08:00 | DI.MAMMO_ITS ---
Exam(s) MAMMO SCREENING EXAM: MAMMO SCREENING CLINICAL HISTORY: screening,Z12.39 TECHNIQUE: Mammograms were interpreted according to the usual protocol including computer analysis w [employer] CAD system, tomosynthesis and C-view imaging. COMPARISON: FINDINGS: The breasts are heterogeneously dense. No dominant mass or clumped microcalcification is identified in either breast. The current examination is compared with previous examinations including February 22 and there has been no gross interval change in appearance in comparison with the prior studies. IMPRESSION: No specific evidence of malignancy at this time. Routine screening examinations are suggested at yea rly intervals due to the family history of breast carcinoma. BI-RADS Category 1 - Negative Breast Density - Category C - Heterogeneously dense
== END 2021-10-31 02:27 ==
PROVIDERS: PCP Family Medicine; Visit Provider Family Medicine
DX: Z12.31 Encounter for screening mammogram for malignant neoplasm of breast (principal); Z80.3 Family history of malignant neoplasm of breast
CPT/HCPCS: 77063; 77067

== ENCOUNTER 2021-11-01 01:55 | Outpatient (CLI) | payer MEDICARE, BC, SELFPAY ==
[2021-11-01 11:27] LABS: ALT 26 U/L (14-59); AST 16 U/L (15-37); Albumin 3.8 g/dL (3.4-5.0); Alkaline Phosphatase 101 U/L (46-116); Anion Gap 6.8 mmol/L (3-11); BUN 15 mg/dL (7-18); Bilirubin, Total 0.5 mg/dL (0.2-1.0); CO2 28.2 mmol/L (21.0-32.0); CREATININE 0.9 mg/dL (0.55-1.02); Calculated LDL 119 mg/dL (<100); Chloride 106 mmol/L (98-107); Cholesterol 214 mg/dL (<200); Glucose 79 mg/dL (74-106); HDL Cholesterol 65 mg/dL (40-60); Potassium 4.3 mmol/L (3.5-5.1); Sodium 141 mmol/L (136-145); Total Protein 6.3 g/dL (6.4-8.2); Triglyceride 153 mg/dL (<150)
== END 2021-11-01 01:56 | disposition home or self-care (01) ==
LOC: LBO 01:55
PROVIDERS: PCP Family Medicine; Visit Provider Family Medicine
DX: I10 Essential (primary) hypertension (principal); R07.89 Other chest pain
CPT/HCPCS: 36415; 80053; 80061

== ENCOUNTER 2021-12-04 01:51 | Emergency (ER) | payer MEDICARE, BC, SELFPAY ==
[2021-12-04 01:59] VITALS: BP 163/94; PULSE 75; RESP 18; TEMP 36.4; O2SAT 97
--- NOTE | 2021-12-04 02:04 | ED.GENADUL_ITS ---
Discharge Plan Disposition Patient Disposition: HOME Condition: Improving Discharge Details Clinical Impression: Back pain, History of vertebral compression fracture Primary Care Provider: Annie Min ED Provider: Romina Saldaña Home Meds and New Rx's Prescriptions: New methocarbamol 500 mg tablet 500 mg PO Q6H PRN (Reason: muscle spasm) Qty: 14 0RF oxycodone 5 mg tablet 5 mg PO Q6H PRN (Reason: pain) Qty: 10 0RF Continued fluticasone propionate 50 mcg/actuation spray,suspension 2 spray HAYLEY DAILY PRN albuterol sulfate [ProAir HFA] 90 mcg/actuation HFA aerosol inhaler 2 puff Inhalation Q4H PRN Qty: 8.5 7RF multivitamin [Once Daily] 1 EACH tablet 1 tab PO DAILY ascorbic acid (vitamin C) [Vitamin C] 500 MG tablet 500 mg PO DAILY JOHANNA RED 1 cap PO DAILY BABY ASPIRIN 81 MG TAB.CHEW 81 mg PO DAILY metoprolol succinate 25 mg tablet extended release 24 hr 25 mg PO DAILY Qty: 90 4RF lorazepam 0.5 mg tablet 0.5 mg PO BID PRN (Reason: agitation) Qty: 30 0RF Rx Instructions: 30 day supply; use sparingly calcium carbonate [Caltrate 600] 600 MG tablet 600 mg PO BID cholecalciferol (vitamin D3) 1,000 UNITS tablet 1,000 unit PO DAILY lidocaine [Lidoderm] 5 % adhesive patch,medicated 1 patch TP DAILY PRN (Reason: pain) Qty: 15 0RF Rx Instructions: leave on most painful area for up to 12 hrs polyethylene glycol 3350 17 gram Powder In Packet 17 g PO DAILY PRN PRN (Reason: Constipation) Qty: 0 0RF acetaminophen [Tylenol Extra Strength] 500 MG tablet 500 mg PO QID Qty: 0 0RF ibuprofen [Motrin IB] 200 MG tablet 400 mg PO PC Qty: 0 0RF Discharge Instructions Instructions: Back Pain (ED) Additional Instructions: Your CT scan of your thoracic and lumbar spine today showed no evidence of acute compression fracture. Your imaging was reviewed with [facility] neurosurgery and they are recommending follow-up with them in 6 to 8 weeks for repeat x-rays. Prescriptions for the pain medication oxycodone and the muscle relaxer methocarbamol has been sent electronically to your pharmacy. Alternate ice and heat to the affected area(s) several times daily for 20 minutes at a time. A referral has been placed to [facility] neurosurgery for follow-up. You can call [facility]'s main number at [phone] and ask for [facility] neurosurgery or [facility] spine to confirm this follow-up appointment. Return immediately to the emergency department if you develop any worsening or new concerning symptoms such as bowel or bladder incontinence, leg weakness or numbness or worsening pain. Discharge Data Discharge Physician: Romina Saldaña Medical Decision Making 0145 -- 76-year-old female with a history of atrial fibrillation, anxiety, depression, hypertension, lumbar compression fracture who presents with mid back pain after lifting her mattress to place a pillow underneath 1 hour prior to arrival. No cauda equina symptoms. Patient appears uncomfortable. She is able to ambulate with use of a cane. Back is normal to inspection and nontender without evidence of trauma or cellulitis. She has no focal deficits. Differential diagnosis includes lumbar strain, compression fracture, disc herniation. Will refer for lumbar spine x- rays and give a dose of oral oxycodone, Valium, prednisone and IM Toradol and reassess. 0300 --imaging reviewed and note severe anterior compression deformity of T7 and moderate compression deformity of T9 in addition to mild to moderate compression deformities of T10 and L1 of uncertain chronicity. Will page [facility] spine for recommendations. Patient reassessed and her pain is improved and she is able to ambulate with use of her cane. 0500 --[facility] neurosurgery reviewed imaging and is recommending CT T and L- spine. Also recommending standing upright thoracic spine x-rays. Discussed with radiology and her T-spine images were obtained in an upright position as patient was unable to lie flat. 0645 --CT thoracic spine notes chronic T7 and T9 fractures and no acute lumbar fracture. CT imaging discussed and reviewed with [facility] neurosurgery --no acute fractures noted -- as patient is neurovascularly intact and her pain is improved, recommend referral placed to neurosurgery with follow-up with spine in 6 to 8 weeks for repeat x-rays. Patient can be given brace for comfort if desired. Recommend pain control with muscle relaxers and narcotics as needed. No recommendation for steroids at this time. Patient reassessed and she continues to feel better and has been able to ambulate. She feels comfortable going home. She declines a brace. Referral to [facility] neurosurgery placed. She was given oxycodone to go and prescriptions for oxycodone and methocarbamol sent electronically to her pharmacy. Usual and customary return precautions given prior to discharge. Medical Records Medical records reviewed: Yes I reviewed the patient's medical records. Imaging Data Radiologic Study: Radiologist's impression: XR Thoracic Spine Exam date and time: 12/04/2021 2:41 AM Age: 76 years old Clinical indication: Injury or trauma; Fall; Blunt trauma (contusions or hematomas); Injury date: 12/04/21; Injury details: Midline lower t spine pain, R/O fracture TECHNIQUE: Imaging protocol: XR of the thoracic spine. Views: 3 views. COMPARISON: CR XR THORACIC SPINE COMPLETE 12/09/2019 9:51 AM FINDINGS: Bones/joints: Decreased osseous mineralization suggestive for osteopenia. There is S-shaped curvature of the thoracolumbar spine, correlate with physical exam for clinical significance. Moderate compression deformity of T9 appears similar to comparison, however there is new severe anterior compression deformity of T7 with [id number] compression deformity of T10 and wiml-[id number] compression deformity of L1 of uncertain chronicity. No spondylolisthesis. Moderate multilevel thoracic spondylosis with increased kyphosis, worsened compared to prior. Soft tissues: Unremarkable. IMPRESSION: 1. Severe anterior compression deformity of T7 with ocxf-qp-ozawinyf compression deformities of T10 and L1 of uncertain chronicity, new compared to prior dated 12/09/2019. Correlate clinically for acute compression deformities. 2. Moderate compression deformity of T9 appears similar to comparison. CT Lumbar Spine Without Contrast Exam date and time: 12/04/2021 5:01 AM Age: 76 years old Clinical indication: Injury or trauma; Fall; Blunt trauma (contusions or hematomas); Injury date: 12/04/21; Injury details: Midline back pain, assess for fracture TECHNIQUE: Imaging protocol: Computed tomography images of the lumbar spine without contrast. Radiation optimization: All CT scans at this facility use at least one of these dose optimization techniques: automated exposure control; mA and/or kV adjustment per patient size (includes targeted exams where dose is matched to clinical indication); or iterative reconstruction. COMPARISON: CR XR THORACIC SPINE COMPLETE 12/04/2021 2:41 AM FINDINGS: Bones/joints: Mild compression fracture at L1 presumed chronic with minimal retropulsion into the central spinal canal. Mild chronic loss of height at L3 through L5 Discs/Spinal canal/Neural foramina: Multilevel disc bulging noted. Central canal and foraminal stenosis most pronounced at L3-L4 and L4-L5 Soft tissues: Fat and soft tissue density in the pre sacral region axial image 147 and sagittal image 38 may represent focal area of fat necrosis IMPRESSION: No acute lumbar fracture Presumed chronic mild compression fracture at L1 with minimal retropulsion into the central spinal canal.? No significant stenosis Fat containing areas in the presacral region which may represent fat necrosis.? Underlying lesion cannot be completely excluded.? Findings previously not described.? Comparison with prior images would be helpful CT thoracic Spine Without Contrast Exam date and time: 12/04/2021 5:01 AM Age: 76 years old Clinical indication: Injury or trauma; Fall; Blunt trauma (contusions or hematomas); Injury date: 12/04/21; Injury details: Midline back pain, assess for fracture TECHNIQUE: Imaging protocol: Computed tomography images of the thoracic spine without contrast. Radiation optimization: All CT scans at this facility use at least one of these dose optimization techniques: automated exposure control; mA and/or kV adjustment per patient size (includes targeted exams where dose is matched to clinical indication); or iterative reconstruction. COMPARISON: CR XR THORACIC SPINE COMPLETE 12/04/2021 2:41 AM FINDINGS: Bones/joints: No acute fracture. Alignment is grossly maintained. T7 and T9 chronic compression deformities noted Discs/Spinal canal/Neural foramina: No significant disc protrusion. No severe spinal canal stenosis. No significant neural foraminal narrowing. Soft tissues: Unremarkable. IMPRESSION: No acute thoracic fracture Chronic T7 and T9 compression fractures HPI General Mode of arrival: ambulatory . Date/Time Provider Initiated Documentation: 12/04/21 02:03 . Limitations to Documentation: no limitations . Information obtained by: patient . HPI Narrative: Patient is a 76-year-old female with a history of atrial fibrillation, anxiety, depression, hypertension with a history of lumbar compression fracture in August 2020 presents with mid back pain after feeling a pop in her back when lifting a mattress to place a pillow under it just prior to arrival. Patient states she was seen by [facility] spine after the diagnosis of her lumbar compression fracture but did not receive any injections and states her pain had been improving progressively since then. She states she has a cane at home that she uses if needed for pain but does not use it regularly until tonight. She has not taken any medication for pain. She denies fever, abdominal pain, bowel or bladder incontinence, saddle anesthesia, leg pain, weakness or numbness. Related Data Home Medications Medication Instructions Recorded Confirmed Johanna Red 1 cap PO DAILY 10/07/12 10/01/21 ascorbic acid (vitamin C) 500 mg 500 mg PO DAILY 10/07/12 10/01/21 tablet (Vitamin C) multivitamin (Once Daily tablet) 1 tab PO DAILY 10/07/12 10/01/21 calcium carbonate 600 mg calcium 600 mg PO BID 01/13/13 10/01/21 (1,500 mg) tablet (Caltrate 600) cholecalciferol (vitamin D3) 25 1,000 unit PO DAILY 01/13/13 10/01/21 mcg (1,000 unit) tablet Baby Aspirin 81 mg PO DAILY 11/14/13 10/01/21 fluticasone propionate 50 2 spray intranasal DAILY PRN 07/08/18 10/01/21 mcg/actuation nasal spray,suspension lidocaine 5 % topical patch 1 patch topical DAILY PRN pain #15 12/09/19 10/01/21 (Lidoderm) ea acetaminophen 500 mg tablet 500 mg PO QID #0 tabs 08/06/20 10/01/21 (Tylenol Extra Strength) ibuprofen 200 mg tablet (Motrin IB) 400 mg PO PC #0 tabs 08/06/20 10/01/21 polyethylene glycol 3350 17 gram 17 g PO DAILY PRN PRN Constipation 08/06/20 10/01/21 oral powder packet #0 ea metoprolol succinate 25 mg 25 mg PO DAILY #90 tabs 02/28/21 10/01/21 tablet,extended release 24 hr albuterol sulfate 90 mcg/actuation 2 puff inhalation Q4H PRN #8.5 03/28/21 10/01/21 aerosol inhaler (ProAir HFA) grams lorazepam 0.5 mg tablet 0.5 mg PO BID PRN agitation #30 10/14/21 tabs methocarbamol 500 mg tablet 500 mg PO Q6H PRN muscle spasm #14 12/04/21 tabs oxycodone 5 mg tablet 5 mg PO Q6H PRN pain #10 tabs 12/04/21 Previous Rx's Medication Instructions Recorded lidocaine 5 % topical patch 1 patch topical DAILY PRN pain #15 12/09/19 (Lidoderm) ea acetaminophen 500 mg tablet 500 mg PO QID #0 tabs 08/06/20 (Tylenol Extra Strength) ibuprofen 200 mg tablet (Motrin IB) 400 mg PO PC #0 tabs 08/06/20 polyethylene glycol 3350 17 gram 17 g PO DAILY PRN PRN Constipation 08/06/20 oral powder packet #0 ea metoprolol succinate 25 mg 25 mg PO DAILY #90 tabs 02/28/21 tablet,extended release 24 hr albuterol sulfate 90 mcg/actuation 2 puff inhalation Q4H PRN #8.5 03/28/21 aerosol inhaler (ProAir HFA) grams lorazepam 0.5 mg tablet 0.5 mg PO BID PRN agitation #30 10/14/21 tabs methocarbamol 500 mg tablet 500 mg PO Q6H PRN muscle spasm #14 12/04/21 tabs oxycodone 5 mg tablet 5 mg PO Q6H PRN pain #10 tabs 12/04/21 Allergies Allergy/AdvReac Type Severity Reaction Status Date / Time doxycycline Allergy Mild Unverified 10/01/21 12:57 bupropion AdvReac Mild Unverified 10/01/21 12:57 guaifenesin AdvReac Mild Unverified 10/01/21 12:57 Sulfa (Sulfonamide AdvReac Unknown Nausea Unverified 10/01/21 12:57 Antibiotics) General Stated Complaint: Nk/Back Pain DEVIN: 4 Review of Systems All systems reviewed & are unremarkable except as noted in HPI and below Constitutional Constitutional: Denies chills, Denies excessive sweating, Denies fatigue, Denies fever(s), Denies weakness and Denies weight loss Eyes Eyes: Reports system reviewed and no additional complaints, except as documented and Denies blurry vision ENT Ears, Nose, Mouth, and Throat: Denies vertigo, Denies dizziness, Denies otalgia, Denies nasal congestion, Denies sore throat and Denies throat swelling Cardiovascular Cardiovascular: Denies chest pain, Denies syncope, Denies rapid heart rate and Denies dyspnea Respiratory Respiratory: Denies chest congestion, Denies cough, Denies pain on inspiration and Denies dyspnea Gastrointestinal Gastrointestinal: Denies abdominal pain, Denies diarrhea and Denies vomiting Genitourinary Genitourinary: Denies hematuria, Denies dysuria and Denies flank pain Musculoskeletal Musculoskeletal: Reports back pain and Denies joint swelling Integumentary/Breasts Skin/Breast: Denies lesions and Denies rash Neurologic Neurologic: Denies behavioral changes, Denies confusion, Denies vertigo, Denies dizziness, Denies syncope, Denies localized weakness and Denies weakness Psychiatric Psychiatric: Denies behavioral changes, Denies confusion and Denies depression Endocrine Endocrine: Denies excessive sweating and Denies fatigue Hematologic/Lymphatic Hematologic/Lymphatic: Denies easy bruising and Denies lymphadenopathy Allergic/Immunologic Allergic/Immunologic: Denies throat swelling PFSH All Active Problems (Updated 12/04/21 @ 07:17 by Romina Saldaña DO) Back pain (Acute) History of vertebral compression fracture (Acute) Anxiety (Chronic) Right knee pain (Acute) Intractable low back pain (Acute) Atypical chest pain (Acute) Chest pain, rule out acute myocardial infarction (Acute) Back pain (Acute) Compression fracture (Chronic) Back pain (Acute) Foot pain, bilateral (Acute) Chronic left shoulder pain (Acute 01/08/16) Abdominal pain (Acute) Paroxysmal atrial fibrillation (Chronic) Smoker (Acute 07/25/08) Osteoporosis (Chronic 09/02/01) T -4.5 Onychomycosis (Chronic 02/02/17) Hiatal hernia (Chronic 09/02/01) EGD CONFIRMED. 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) Depressive disorder (Chronic) Medical History (Updated 12/04/21 @ 07:17 by Romina Saldaña DO) Abnormal laboratory test result Breast lump (11/02/02) Closed fracture of rib Foot pain, right Grief (12/18/14) History of echocardiogram Hypokalemia (06/17/12) Standard chest x-ray abnormal Surgical History section (05/19/75) Colonoscopy - MAC (06/08/07) ECHO (10/15/12) PAROXYSMAL A-FIB ([facility]) EGD - MAC (~2001) HH History of section History of esophagogastroduodenoscopy Family History Mother , 97 Rectal cancer Father , 75 COPD (chronic obstructive pulmonary disease) Sister , 73 Neoplasm BREAST Breast cancer Sister Diabetes COPD (chronic obstructive pulmonary disease) Hyperlipidemia Brother Essential hypertension Hyperlipidemia Maternal Grandfather , 73 Depression Paternal Grandfather , 73 Stroke Maternal Grandmother , 65 Lung cancer Paternal Grandmother , 78 No problems noted. Son No problems noted. Daughter No problems noted. Social History (Updated 03/29/21 @ 15:55 by Leonor Garcia) Smoking/Tobacco Use Status: Current every day Tobacco Type: cigarettes and pipe Tobacco: How many years used: 50 Quit status: considering quitting Second Hand Exposure: Yes Smoking risk assessment performed?: Yes Alcohol Intake: current Alcohol type: beer Drug use: Never Substance use type: does not use Caregiver/Support person: No Household members: none Housing: apartment Do you need help understanding health information?: Rarely Pets and animals: Yes Pets and animals: cat(s) Sexually active: No Do you think of yourself as: straight/heterosexual Current gender identity: female What is your relationship status?: How often do you talk on the phone with friends or family?: three or more times per week How often do you get together with friends or relatives?: twice per week How often do you attend religion or roman catholic services?: 1-3 times per year Do you belong to any clubs or organized social groups?: no Panel score (0-1 are the most socially isolated patients): 1 What type of physical activity do you participate in: walking and other Details: Murphy Ball, Bill Chi, stationary bike Duration: 30-45 minutes/day Frequency: 5-6 times per week Komal/Jewish: Congregational Seatbelt use: always Drive intox or ride w/intox charter coach driver: No Do you feel safe at home: Yes Do you feel safe in your relationship?: Yes Exam Const General: cooperative and healthy appearing Orientation: alert, awake and oriented x3 HENMT Head: normal to inspection Ears: hearing grossly normal bilaterally, external ears normal and TM's normal bilaterally General nose exam: external nose normal Face and sinus: normal facial exam Mouth: oral mucosae normal Teeth and gingiva: dentition normal Throat: posterior oropharynx normal Eyes General: appearance normal, both eyes and all related structures Eyelids: eyelids normal Pupils: PERRL EOM: EOM intact bilaterally Neck Neck: normal visual inspection Lymphatic: no lymphadenopathy noted Chest Chest: normal inspection of the chest Resp Effort & Inspection: normal respiratory effort and able to speak in complete sentences Auscultation: clear to auscultation bilaterally Cardio Rate: regular rate Rhythm: regular rhythm GI Inspection: normal to inspection Palpation: soft, not firm, no guarding, no hepatosplenomegaly, no masses and nontender Auscultation: normal bowel sounds Back/Spine/Pelvis Thoracic/Lumbar Spine: thoracic and lumbar spine normal to inspection, No thoracic spinal tenderness and No lumbar spinal tenderness Skin General skin exam: no rashes or lesions noted Neuro General: patient alert, patient awake and patient oriented x3 Cognition: normal cognition Speech: speech normal Gait: normal gait Motor: muscle tone normal throughout Sensory Exam: no sensory deficits noted DTR's: Rt Patellar: 1+, Lt Patellar: 1+, Rt Ankle: 1+ and Lt Ankle: 1+ Plantar Reflexes: Equivocal: bilateral (negative babinski b/l) Extrem General: normal to inspection, full ROM and capillary refill normal Other: B/L DP/PT 1+ pulses intact. Psych Appearance: grossly normal Mental Status: mental status grossly normal Speech and Movement: speech and movement normal Affect: normal affect Thought Process: normal Course Vital Signs Vital signs: Vital Signs Temperature 97.5 F L 12/04/21 01:59 Pulse 75 12/04/21 01:59 Respiratory Rate 18 12/04/21 01:59 Blood Pressure 163/94 H 12/04/21 01:59 Pulse Oximetry 97 12/04/21 01:59 Temperature 97.5 F L 12/04/21 01:59 Temperature Source Tympanic 12/04/21 01:59 Pulse 75 12/04/21 01:59 Respiratory Rate 18 12/04/21 01:59 Blood Pressure 163/94 H 12/04/21 01:59 Blood Pressure Position Sitting 12/04/21 01:59 Pulse Oximetry 97 12/04/21 01:59 Oxygen Delivery Method Room Air 12/04/21 01:59 Oxygen Flow Rate 0 12/04/21 01:59
--- NOTE | 2021-12-04 02:15 | DI.RAD_ITS ---
Exam(s) XR THORACIC SPINE COMPLETE EXAM: XR THORACIC SPINE COMPLETE CLINICAL HISTORY: midline lower T spine pain, r/o fracture TECHNIQUE: COMPARISON: CR XR THORACIC SPINE COMPLETE from 12/09/2019 FINDINGS: Four views were obtained. There are old compression fractures of T7, T9, and L1 vertebral bodies. N o evidence of acute fracture. Please see accompanying CT report. IMPRESSION: RADIATION DOSE DELIVERED: Total DLP
[2021-12-04] MEDS: diazePAM 5 MG TAB PO (02:30)
[2021-12-04] MEDS: Ketorolac 30 MG/ML VIAL IM (02:30)
[2021-12-04] MEDS: oxyCODONE 5 MG TAB PO (02:30)
[2021-12-04] MEDS: predniSONE 20 MG TAB 60 MG PO (02:31)
--- NOTE | 2021-12-04 03:52 | DI.VRAD_ITS ---
PROCEDURE INFORMATION: Exam: XR Thoracic Spine Exam date and time: 12/04/2021 2:41 AM Age: 76 years old Clinical indication: Injury or trauma; Fall; Blunt trauma (contusions or hematomas); Injury date: 12/04/21; Injury details: Midline lower t spine pain, R/O fracture TECHNIQUE: Imaging protocol: XR of the thoracic spine. Views: 3 views. COMPARISON: CR XR THORACIC SPINE COMPLETE 12/09/2019 9:51 AM FINDINGS: Bones/joints: Decreased osseous mineralization suggestive for osteopenia. There is S-shaped curvature of the thoracolumbar spine, correlate with physical exam for clinical significance. Moderate compression deformity of T9 appears similar to comparison, however there is new severe anterior compression deformity of T7 with olmy-yf-rhiotwfx compression deformity of T10 and bomp-hb-twmliagm compression deformity of L1 of uncertain chronicity. No spondylolisthesis. Moderate multilevel thoracic spondylosis with increased kyphosis, worsened compared to prior. Soft tissues: Unremarkable. IMPRESSION: 1. Severe anterior compression deformity of T7 with goih-al-byyyuwqz compression deformities of T10 and L1 of uncertain chronicity, new compared to prior dated 12/09/2019. Correlate clinically for acute compression deformities. 2. Moderate compression deformity of T9 appears similar to comparison. Dictated and Authenticated by: Tavares Villatoro MD. Ordering:MARTIN Vanegas MD
--- NOTE | 2021-12-04 04:45 | DI.CT_ITS ---
Exam(s) CT THORACIC LUMBAR SPINE WO EXAM: CT THORACIC LUMBAR SPINE WO CLINICAL HISTORY: midline back pain, assess for fracture TECHNIQUE: COMPARISON: CT CT CHEST LUNG CANCER SCREEN from 04/11/2021 FINDINGS: CT examination of the thoracic and lumbar spine was performed utilizing multi slice acquisition and m ultiplanar reconstruction. There are multiple calcified pulmonary nodules consistent with healed granulomatous disease. Otherwi se lungs are clear. No pleural effusion. Coronary artery calcification noted. Visualized portions of liver, spleen, adrenals, kidneys, and pancreas appear intact. Abdominal aorta is of normal diameter. There are old compression fractures of T7, T9, and L1 vertebral bodies, unchanged from prior CT exami nation of April 2021. No evidence of acute fracture or dislocation. IMPRESSION: No evidence of acute spinal trauma. Old thoracic and lumbar vertebral body compression fractures not ed. RADIATION DOSE DELIVERED: 652.46mGy.cm Total DLP !Error CTDIvol RADIATION OPTIMIZATION: All CT scans at this facility use at least one of these dose optimization te chniques: automated exposure control; mA and/or kV adjustment per patient size (includes targeted exa ms where dose is matched to clinical indication); or iterative reconstruction.
[2021-12-04 05:30] VITALS: BP 126/78; PULSE 56; RESP 17; TEMP 36.5; O2SAT 97
--- NOTE | 2021-12-04 06:15 | DI.VRAD_ITS ---
PROCEDURE INFORMATION: Exam: CT Lumbar Spine Without Contrast Exam date and time: 12/04/2021 5:01 AM Age: 76 years old Clinical indication: Injury or trauma; Fall; Blunt trauma (contusions or hematomas); Injury date: 12/04/21; Injury details: Midline back pain, assess for fracture TECHNIQUE: Imaging protocol: Computed tomography images of the lumbar spine without contrast. Radiation optimization: All CT scans at this facility use at least one of these dose optimization techniques: automated exposure control; mA and/or kV adjustment per patient size (includes targeted exams where dose is matched to clinical indication); or iterative reconstruction. COMPARISON: CR XR THORACIC SPINE COMPLETE 12/04/2021 2:41 AM FINDINGS: Bones/joints: Mild compression fracture at L1 presumed chronic with minimal retropulsion into the central spinal canal. Mild chronic loss of height at L3 through L5 Discs/Spinal canal/Neural foramina: Multilevel disc bulging noted. Central canal and foraminal stenosis most pronounced at L3-L4 and L4-L5 Soft tissues: Fat and soft tissue density in the pre sacral region axial image 147 and sagittal image 38 may represent focal area of fat necrosis IMPRESSION: No acute lumbar fracture Presumed chronic mild compression fracture at L1 with minimal retropulsion into the central spinal canal. No significant stenosis Fat containing areas in the presacral region which may represent fat necrosis. Underlying lesion cannot be completely excluded. Findings previously not described. Comparison with prior images would be helpful PROCEDURE INFORMATION: Exam: CT thoracic Spine Without Contrast Exam date and time: 12/04/2021 5:01 AM Age: 76 years old Clinical indication: Injury or trauma; Fall; Blunt trauma (contusions or hematomas); Injury date: 12/04/21; Injury details: Midline back pain, assess for fracture TECHNIQUE: Imaging protocol: Computed tomography images of the thoracic spine without contrast. Radiation optimization: All CT scans at this facility use at least one of these dose optimization techniques: automated exposure control; mA and/or kV adjustment per patient size (includes targeted exams where dose is matched to clinical indication); or iterative reconstruction. COMPARISON: CR XR THORACIC SPINE COMPLETE 12/04/2021 2:41 AM FINDINGS: Bones/joints: No acute fracture. Alignment is grossly maintained. T7 and T9 chronic compression deformities noted Discs/Spinal canal/Neural foramina: No significant disc protrusion. No severe spinal canal stenosis. No significant neural foraminal narrowing. Soft tissues: Unremarkable. IMPRESSION: No acute thoracic fracture Chronic T7 and T9 compression fractures Dictated and Authenticated by: Sebas Brambila MD. Ordering:MARTIN Vanegas MD
--- NOTE | 2021-12-04 06:46 | NUR.NOTE ---
Pt up to bathroom with cane and stand by assist.
--- NOTE | 2021-12-04 07:26 | NUR.NOTE ---
Nursing Note: Referral given to Care Management to [facility] [place] Neuro[facility] for back pain/follow up repeat xrays; in 6 to 8 weeks. Ella Leblanc
[2021-12-04 07:40] VITALS: BP 142/81; PULSE 58; RESP 16; TEMP 36.2; O2SAT 96
--- NOTE | 2021-12-04 16:35 | CMACTNOTE_ITS ---
- If Service Date Differs Date of service: 12/04/21 Time of Service: 16:35 Care Management Activity Note Dilma presents in the ED for back pain. At the request of ED provider, CM coordinates a referral to [facility] [place] Neurosurgery to assist Dilma in obtaining an appointment in 6 to 8 weeks for further evaluation and treatment.
--- NOTE | 2021-12-08 03:37 | W.ED.FU ---
Date of service: 12/08/21 Time of Service: 02:42 Follow Up Plan: I was contacted by Thuan from [facility] in regards to the patient. They had been called for evaluation. I reviewed the patient's note, and on her prior visit she had demonstrated evidence of a compression fracture in her spine, and was prescribed narcotics and muscle relaxants for pain control. She has not been taking the full dose secondary to nausea. EMS reports they were called because of the nausea and continued pain. EMS reports that the patient is walking and ambulating well throughout her house and shows no signs of neurovascular compromise on their exam. They asked if there was anything else that could be done in the emergency department. At this time it appears that the patient has had a thorough CT scan work-up here, and no MRI is currently available here. Additionally the have scheduled follow-up for the patient with the [facility] spine center as well. I informed EMS that there did not appear to be any significant new evaluations that we could add if her symptoms are still the same as when she initially presented. I also, as always, made it unequivocally clear that we are always happy to see the patient for evaluation if the patient deems that indicated. EMS did request that they could give Zofran to the patient and a few tablets for home if needed. I do feel that this is appropriate to help control the patient's nausea so she can take adequate pain medication that was already prescribed. Upon review of her medication it does not appear that she is on any contraindicated medications for this. No additional requests were made by EMS for us. EMS will review this plan with the patient.
== END 2021-12-04 07:40 | disposition home or self-care (01) ==
PROVIDERS: Emergency Provider Physician Assistant; PCP Family Medicine
DX: M54.9 Dorsalgia, unspecified (principal); M54.6 Pain in thoracic spine
CPT/HCPCS: 99284; 72072; 72128; 72131; 99283; J1885; J7512

== ENCOUNTER 2021-12-16 10:38 | Outpatient (CLI) | payer MEDICARE, BC, SELFPAY ==
[2021-12-16 12:48] LABS: HCT 42.2 % (36.0-46.0); HGB 14.7 g/dL (11.2-15.7); MCH 32.9 pg (27.0-33.0); MCHC 34.8 % (32.0-36.0); MCV 94 fL (80-95); MPV 11.2 fL (8.0-11.0); Platelet Count 283 10^3/uL (130-400); RBC 4.47 10^6/uL (3.93-5.22); RDW 13.2 % (11.7-14.6); RDW-SD 45.2 fL; WBC 8.21 10^3/uL (4.4-10.8)
[2021-12-16 13:09] LABS: ALT 19 U/L (14-59); AST 10 U/L (15-37); Albumin 3.8 g/dL (3.4-5.0); Alkaline Phosphatase 106 U/L (46-116); Anion Gap 10.3 mmol/L (3-11); BUN 18 mg/dL (7-18); Bilirubin, Total 0.5 mg/dL (0.2-1.0); CO2 25.7 mmol/L (21.0-32.0); CREATININE 0.9 mg/dL (0.55-1.02); Calcium 9.6 mg/dL (8.5-10.1); Chloride 102 mmol/L (98-107); Glucose 108 mg/dL (74-106); PHOSPHORUS 3.3 mg/dL (2.6-4.7); Potassium 3.3 mmol/L (3.5-5.1); Sodium 138 mmol/L (136-145); Total Protein 7.2 g/dL (6.4-8.2)
[2021-12-16 15:36] LABS: Vitamin D 25 Total 67.8 ng/mL (30-100)
[2021-12-17 15:43] LABS: Albumin 59.9 % (55.8-66.1); Albumin g/dL 4.1 g/dL (3.6-5.2); Total Protein 6.8 g/dL (6.3-8.2)
[2021-12-19 15:44] LABS: PTH-Related Peptide 0.5 pmol/L (< or = 4.2)
== END 2021-12-16 10:39 | disposition home or self-care (01) ==
LOC: LOS 10:39
PROVIDERS: PCP Family Medicine; Referring Provider Family Medicine; Visit Provider Family Medicine
DX: M54.89 Other dorsalgia (principal); Z87.81 Personal history of (healed) traumatic fracture; M81.0 Age-related osteoporosis without current pathological fracture; K44.9 Diaphragmatic hernia without obstruction or gangrene
CPT/HCPCS: 36415; 80053; 82306; 85027; 82397; 84100; 84165

== ENCOUNTER 2021-12-22 10:06 | Emergency (ER) | payer MEDICARE, BC, SELFPAY ==
[2021-12-22 10:28] VITALS: BP 159/104; PULSE 81; RESP 17; TEMP 36.3; O2SAT 99
--- NOTE | 2021-12-22 11:15 | DI.CT_ITS ---
Exam(s) CT ABDOMEN PELVIS WO EXAM: CT ABDOMEN PELVIS WO CLINICAL HISTORY: abdominal pressure, pain, loose stool 5 days. TECHNIQUE: Imaging Protocol: Axial computed tomography images with coronal and sagittal reformatted images were created and reviewed. Oral: no COMPARISON: CT CT THORAX ABD/PEL CTA from 07/06/[address] CHEST LUNG CANCER SCREEN from 04/11/2021 FINDINGS: ABDOMEN: Lung Bases: Multiple basilar calcified granulomas. Dependent changes at the posterior lung bases. H eart is enlarged. Liver: Normal density. No measurable mass. Gallbladder and biliary tract: No radiodense calculus or dilation. Pancreas: Normal density, no abnormal calcifications or inflammatory process. Spleen: Normal. Kidneys: Normal size, contour and axis. No radiodense stones or obstructive uropathy. No masses seen. Tiny cyst lower pole right kidney. Adrenal glands: No masses seen. Lymph nodes: Within normal limits. Abdominal Aorta: Abdominal portion non-dilated. Atherosclerotic calcifications. Spine: Stable L1 compression fracture. Stable mild compression of the superior endplates of L3 and L 4. Degenerative disc changes and facet degenerative changes. PELVIS: Bladder: Symmetric distention, no gross wall thickening. Bowel: Appendix normal. No obstruction or bowel wall thickening. Very little colonic stool. Peritoneal cavity: No ascites, collection or mesenteric inflammatory response. Reproductive organs: Retroverted uterus. Within normal limits. Bones: Within normal limits. IMPRESSION: No acute abnormality. RADIATION DOSE DELIVERED: 636.86mGy.cm Total DLP DATA REPOSITORY: All CT scans at this facility are submitted to the National Radiology Data Registry (NRDR) Dose Index Registry (DIR) with the [employer] (A[employer]). RADIATION OPTIMIZATION: All CT scans at this facility use at least one of these dose optimization te chniques: automated exposure control; mA and/or kV adjustment per patient size (includes targeted exa ms where dose is matched to clinical indication); or iterative reconstruction.
--- NOTE | 2021-12-22 11:24 | W.ED.GENAD ---
Discharge Plan Disposition Patient Disposition: HOME Condition: Stable Discharge Details Clinical Impression: Diarrhea, Abdominal discomfort, Acute dehydration Primary Care Provider: Annie Min ED Provider: Lance Daniels Home Meds and New Rx's Prescriptions: Continued fluticasone propionate 50 mcg/actuation spray,suspension 2 spray HAYLEY DAILY PRN albuterol sulfate [ProAir HFA] 90 mcg/actuation HFA aerosol inhaler 2 puff Inhalation Q4H PRN Qty: 8.5 7RF multivitamin [Once Daily] 1 EACH tablet 1 tab PO DAILY ascorbic acid (vitamin C) [Vitamin C] 500 MG tablet 500 mg PO DAILY JOHANNA RED 1 cap PO DAILY BABY ASPIRIN 81 MG TAB.CHEW 81 mg PO DAILY metoprolol succinate 25 mg tablet extended release 24 hr 25 mg PO DAILY Qty: 90 4RF lorazepam 0.5 mg tablet 0.5 mg PO BID PRN (Reason: agitation) Qty: 30 0RF Rx Instructions: 30 day supply; use sparingly methocarbamol 500 mg tablet 500 mg PO BID & HS PRN (Reason: muscle spasm) Qty: 90 1RF ondansetron 8 mg tablet,disintegrating 8 mg PO Q12H PRN (Reason: nausea and vomiting) Qty: 20 0RF calcium carbonate [Caltrate 600] 600 MG tablet 600 mg PO BID cholecalciferol (vitamin D3) 1,000 UNITS tablet 1,000 unit PO DAILY lidocaine [Lidoderm] 5 % adhesive patch,medicated 1 patch TP DAILY PRN (Reason: pain) Qty: 15 0RF Rx Instructions: leave on most painful area for up to 12 hrs polyethylene glycol 3350 17 gram Powder In Packet 17 g PO DAILY PRN PRN (Reason: Constipation) Qty: 0 0RF acetaminophen [Tylenol Extra Strength] 500 MG tablet 500 mg PO QID Qty: 0 0RF ibuprofen [Motrin IB] 200 MG tablet 400 mg PO PC Qty: 0 0RF Discharge Instructions Instructions: Dehydration (ED), Acute Diarrhea (ED) Additional Instructions: Please contact your primary care physician to arrange follow-up. Return to the ER immediately for any worsening or new concerning symptoms. Referrals: Annie Min MD, [place] [Primary Care Provider] - Medical Decision Making [id number] --76-year-old female recently treated with course of opioid analgesics for spinal compression fractures, developed constipation, subsequently stop opioids and was treated with MiraLAX, now here with 4 to 5 days of loose stool and associated nausea with decreased appetite as well as abdominal discomfort. On examination, patient is dehydrated. She does have tenderness in her left upper mid abdomen. Consider acute surgical process including bowel obstruction versus ileus. Plan to obtain CT of the abdomen pelvis. Will give IV fluid bolus rehydration. 1320 --Abdominal exam was repeated and benign. Labs reviewed and nondiagnostic. CT of the abdomen pelvis was interpreted by radiology:IMPRESSION: 1. Bibasilar reticular markings similar to prior study. Trace pleural effusions. 2. Sequela of prior granulomatous disease. 3. Limitations as discussed above. 4. Additional findings as discussed above. Patient reassessed and feeling better after IV fluid bolus. All results were discussed with the patient. Plan for discharge with outpatient follow-up. Usual customary discharge instructions reviewed with the patient. Lab Data Lab results reviewed: Yes I reviewed the patient's lab results. Labs: Laboratory Tests Range/Units 12/22/21 12/22/21 11:34 11:34 WBC (4.4-10.8) 10^3/uL 7.27 RBC (3.93-5.22) 10^6/uL 4.42 Hgb (11.2-15.7) g/dL 14.5 Hct (36.0-46.0) % 42.1 MCV (80-95) fL 95 MCH (27.0-33.0) pg 32.8 MCHC (32.0-36.0) % 34.4 RDW (11.7-14.6) % 13.2 Plt Count (130-400) 10^3/uL 315 MPV (8.0-11.0) fL 10.3 Immature Gran % 0.3 Neutrophils % 79.6 Lymphocytes % 13.2 Monocytes % 5.5 Eosinophils % 0.6 Basophils % 0.8 Nucleated RBC % (0.0-0.3) % 0.0 Absolute Neutrophils (1.2-6.7) 10^3/uL 5.79 Absolute Lymphocytes (1.2-3.4) 10^3/uL 0.96 L Absolute Monocytes (0.1-0.8) 10^3/uL 0.40 Absolute Eosinophils (0.0-0.7) 10^3/uL 0.04 Absolute Basophils (0.0-0.2) 10^3/uL 0.06 Sodium (136-145) mmol/L 142 Potassium (3.5-5.1) mmol/L 3.8 Chloride (98-107) mmol/L 105 Carbon Dioxide (21.0-32.0) mmol/L 24.2 Anion Gap (3-11) mmol/L 12.8 H BUN (7-18) mg/dL 11 Creatinine (0.55-1.02) mg/dL 0.8 Estimated GFR/1.73 m2 (mL/min/1.73m2) >= 60.00 Glucose (74-106) mg/dL 106 Calcium (8.5-10.1) mg/dL 9.5 Total Bilirubin (0.2-1.0) mg/dL 0.6 AST (15-37) U/L 11 L ALT (14-59) U/L 18 Alkaline Phosphatase (46-116) U/L 129 H Total Protein (6.4-8.2) g/dL 7.0 Albumin (3.4-5.0) g/dL 3.9 Lipase (73-393) U/L 64 HPI General Mode of arrival: ambulatory. Date/Time Provider Initiated Documentation: 12/22/21 10:59. Limitations to Documentation: no limitations. Information obtained by: patient. HPI Narrative: 76-year-old female with history of spinal compression fractures, was recently on opioid analgesics for back pain, developed, patient and then subsequently treated with MiraLAX, now with persistent loose stools over the past 5 days. Patient states for the past 5 days she has had frequent episodes of diarrhea. Bowel movements are loose, brown and at times yellow. No melena or bright red blood per rectum. No modifiers. She has associated mid upper abdominal discomfort described as pressure over the past 1-2 days. She is also had associated nausea, dry heaves with lack of appetite. She is concerned that she may be dehydrated and feels slightly dizzy when she is ambulating. Related Data Home Medications Medication Instructions Recorded Confirmed Johanna Red 1 cap PO DAILY 10/07/12 12/22/21 ascorbic acid (vitamin C) 500 mg 500 mg PO DAILY 10/07/12 12/22/21 tablet (Vitamin C) multivitamin (Once Daily tablet) 1 tab PO DAILY 10/07/12 12/22/21 calcium carbonate 600 mg calcium 600 mg PO BID 01/13/13 12/22/21 (1,500 mg) tablet (Caltrate 600) cholecalciferol (vitamin D3) 25 1,000 unit PO DAILY 01/13/13 12/22/21 mcg (1,000 unit) tablet Baby Aspirin 81 mg PO DAILY 11/14/13 12/22/21 fluticasone propionate 50 2 spray intranasal DAILY PRN 07/08/18 12/22/21 mcg/actuation nasal spray,suspension lidocaine 5 % topical patch 1 patch topical DAILY PRN pain #15 12/09/19 12/22/21 (Lidoderm) ea acetaminophen 500 mg tablet 500 mg PO QID #0 tabs 08/06/20 12/22/21 (Tylenol Extra Strength) ibuprofen 200 mg tablet (Motrin IB) 400 mg PO PC #0 tabs 08/06/20 12/22/21 polyethylene glycol 3350 17 gram 17 g PO DAILY PRN PRN Constipation 08/06/20 12/22/21 oral powder packet #0 ea metoprolol succinate 25 mg 25 mg PO DAILY #90 tabs 02/28/21 12/22/21 tablet,extended release 24 hr albuterol sulfate 90 mcg/actuation 2 puff inhalation Q4H PRN #8.5 03/28/21 12/22/21 aerosol inhaler (ProAir HFA) grams lorazepam 0.5 mg tablet 0.5 mg PO BID PRN agitation #30 10/14/21 12/22/21 tabs methocarbamol 500 mg tablet 500 mg PO BID & HS PRN muscle 12/10/21 12/22/21 spasm #90 tabs ondansetron 8 mg disintegrating 8 mg PO Q12H PRN nausea and 12/11/21 12/22/21 tablet vomiting #20 tabs Previous Rx's Medication Instructions Recorded lidocaine 5 % topical patch 1 patch topical DAILY PRN pain #15 12/09/19 (Lidoderm) ea acetaminophen 500 mg tablet 500 mg PO QID #0 tabs 08/06/20 (Tylenol Extra Strength) ibuprofen 200 mg tablet (Motrin IB) 400 mg PO PC #0 tabs 08/06/20 polyethylene glycol 3350 17 gram 17 g PO DAILY PRN PRN Constipation 08/06/20 oral powder packet #0 ea metoprolol succinate 25 mg 25 mg PO DAILY #90 tabs 02/28/21 tablet,extended release 24 hr albuterol sulfate 90 mcg/actuation 2 puff inhalation Q4H PRN #8.5 03/28/21 aerosol inhaler (ProAir HFA) grams lorazepam 0.5 mg tablet 0.5 mg PO BID PRN agitation #30 10/14/21 tabs methocarbamol 500 mg tablet 500 mg PO BID & HS PRN muscle 12/10/21 spasm #90 tabs ondansetron 8 mg disintegrating 8 mg PO Q12H PRN nausea and 12/11/21 tablet vomiting #20 tabs Allergies Allergy/AdvReac Type Severity Reaction Status Date / Time doxycycline Allergy Mild Unverified 12/22/21 10:43 bupropion AdvReac Mild Unverified 12/22/21 10:43 guaifenesin AdvReac Mild Unverified 12/22/21 10:43 Sulfa (Sulfonamide AdvReac Unknown Nausea Unverified 12/22/21 10:43 Antibiotics) General Stated Complaint: Abd Prob DEVIN: 3 Review of Systems All systems reviewed & are unremarkable except as noted in HPI and below Constitutional Constitutional: Denies fever(s) Gastrointestinal Gastrointestinal: Reports as per HPI Musculoskeletal Musculoskeletal: Reports back pain (unchanged) PFSH All Active Problems (Updated 12/22/21 @ 13:20 by Lance Daniels MD) Back pain (Acute) History of vertebral compression fracture (Acute) Diarrhea (Acute) Abdominal discomfort (Acute) Acute dehydration (Acute) Anxiety (Chronic) Right knee pain (Acute) Intractable low back pain (Acute) Atypical chest pain (Acute) Chest pain, rule out acute myocardial infarction (Acute) Back pain (Acute) Compression fracture (Chronic) Back pain (Acute) Foot pain, bilateral (Acute) Chronic left shoulder pain (Acute 01/08/16) Abdominal pain (Acute) Paroxysmal atrial fibrillation (Chronic) Smoker (Acute 07/25/08) Osteoporosis (Chronic 09/02/01) T -4.5 Onychomycosis (Chronic 02/02/17) Hiatal hernia (Chronic 09/02/01) EGD CONFIRMED. 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) Depressive disorder (Chronic) Medical History (Updated 12/22/21 @ 13:20 by Lance Daniels MD) Abnormal laboratory test result Breast lump (11/02/02) Closed fracture of rib Foot pain, right Grief (12/18/14) History of echocardiogram Hypokalemia (06/17/12) Standard chest x-ray abnormal Surgical History section (05/19/75) Colonoscopy - MAC (06/08/07) ECHO (10/15/12) PAROXYSMAL A-FIB ([facility]) EGD - MAC (~2001) HH History of section History of esophagogastroduodenoscopy Family History Mother , 97 Rectal cancer Father , 75 COPD (chronic obstructive pulmonary disease) Sister , 73 Neoplasm BREAST Breast cancer Sister Diabetes COPD (chronic obstructive pulmonary disease) Hyperlipidemia Brother Essential hypertension Hyperlipidemia Maternal Grandfather , 73 Depression Paternal Grandfather , 73 Stroke Maternal Grandmother , 65 Lung cancer Paternal Grandmother , 78 No problems noted. Son No problems noted. Daughter No problems noted. Social History Smoking/Tobacco Use Status: Current every day Tobacco Type: cigarettes and pipe Tobacco: How many years used: 50 Quit status: considering quitting Second Hand Exposure: Yes Smoking risk assessment performed?: Yes Alcohol Intake: current Alcohol type: beer Drug use: Never Substance use type: does not use Caregiver/Support person: No Household members: none Housing: apartment Do you need help understanding health information?: Rarely Pets and animals: Yes Pets and animals: cat(s) Sexually active: No Do you think of yourself as: straight/heterosexual Current gender identity: female What is your relationship status?: How often do you talk on the phone with friends or family?: three or more times per week How often do you get together with friends or relatives?: twice per week How often do you attend adventism or evangelical services?: 1-3 times per year Do you belong to any clubs or organized social groups?: no Panel score (0-1 are the most socially isolated patients): 1 What type of physical activity do you participate in: walking and other Details: Murphy Ball, Bill Chi, stationary bike Duration: 30-45 minutes/day Frequency: 5-6 times per week Komal/Cheondoism: Restorationism Seatbelt use: always Drive intox or ride w/intox livery car driver: No Do you feel safe at home: Yes Do you feel safe in your relationship?: Yes Exam Const General: cooperative and no acute distress HENMT Mouth: mucous membranes dry Eyes Conjunctivae: normal conjunctivae Sclera: normal sclerae Neck Neck: trachea midline and supple Resp Auscultation: clear to auscultation bilaterally, no rales, no rhonchi and no wheezes Cardio Rate: regular rate and not tachycardic Rhythm: regular rhythm GI Palpation: soft, not firm, no guarding, no masses, not rigid and tender in the LUQ and other (mid abdomen ) Skin General skin exam: no rashes or lesions noted and turgor decreased Neuro General: patient alert, patient awake and tone normal Extrem General: no edema Psych Appearance: grossly normal Mental Status: mental status grossly normal Speech and Movement: speech and movement normal Course Vital Signs Vital signs: Vital Signs Temperature 36.3 C L 12/22/21 10:28 Pulse 81 12/22/21 10:28 Respiratory Rate 17 12/22/21 10:28 Blood Pressure 159/104 H 12/22/21 10:28 Pulse Oximetry 99 12/22/21 10:28 Temperature 36.3 C L 12/22/21 10:28 Temperature Source Temporal Artery Scan 12/22/21 10:28 Pulse 81 12/22/21 10:28 Respiratory Rate 17 12/22/21 10:28 Respiratory Effort Non-Labored 12/22/21 10:39 Blood Pressure 159/104 H 12/22/21 10:28 Blood Pressure Position Sitting 12/22/21 10:28 Pulse Oximetry 99 12/22/21 10:28 Oxygen Delivery Method Room Air 12/22/21 10:28 Oxygen Flow Rate 0 12/22/21 10:28 Pain Level 8 12/22/21 10:39
[2021-12-22 11:36] LABS: Abs Immature Grans 0.02 10^3/uL (0.0-0.06); Absolute Basophil Count 0.06 10^3/uL (0.0-0.2); Absolute Eosinophil Count 0.04 10^3/uL (0.0-0.7); Absolute Lymphocyte Count 0.96 10^3/uL (1.2-3.4); Absolute Neutrophil Count 5.79 10^3/uL (1.2-6.7); Basophils % 0.8; Eosinophils % 0.6; HCT 42.1 % (36.0-46.0); HGB 14.5 g/dL (11.2-15.7); Immature Grans % 0.3; Lymphocytes % 13.2; MCH 32.8 pg (27.0-33.0); MCHC 34.4 % (32.0-36.0); MCV 95 fL (80-95); MPV 10.3 fL (8.0-11.0); Monocytes % 5.5; Neutrophils % 79.6; Platelet Count 315 10^3/uL (130-400); RBC 4.42 10^6/uL (3.93-5.22); RDW 13.2 % (11.7-14.6); RDW-SD 46.8 fL; WBC 7.27 10^3/uL (4.4-10.8)
[2021-12-22 11:52] LABS: ALT 18 U/L (14-59); AST 11 U/L (15-37); Albumin 3.9 g/dL (3.4-5.0); Alkaline Phosphatase 129 U/L (46-116); Anion Gap 12.8 mmol/L (3-11); BUN 11 mg/dL (7-18); Bilirubin, Total 0.6 mg/dL (0.2-1.0); CO2 24.2 mmol/L (21.0-32.0); CREATININE 0.8 mg/dL (0.55-1.02); Calcium 9.5 mg/dL (8.5-10.1); Chloride 105 mmol/L (98-107); Glucose 106 mg/dL (74-106); Lipase 64 U/L (73-393); Potassium 3.8 mmol/L (3.5-5.1); Sodium 142 mmol/L (136-145)
--- NOTE | 2021-12-22 12:58 | DI.VRAD_ITS ---
PROCEDURE INFORMATION: Exam: CT Abdomen And Pelvis Without Contrast Exam date and time: 12/22/2021 12:25 PM Age: 76 years old Clinical indication: Other: Abdominal pressure, pain, loose stool x5 days TECHNIQUE: Imaging protocol: Computed tomography of the abdomen and pelvis without contrast. Radiation optimization: All CT scans at this facility use at least one of these dose optimization techniques: automated exposure control; mA and/or kV adjustment per patient size (includes targeted exams where dose is matched to clinical indication); or iterative reconstruction. COMPARISON: CT THORAX ABD/PEL CTA 07/06/2020 13:50 FINDINGS: Limitations: Lack of IV or oral contrast. Area of clinical pain not specified. Lungs: Calcified lung granulomas. Bibasilar reticular markings similar to prior study. Pleural spaces: Trace pleural effusions. Heart: Prominent cardiac silhouette. Liver: Hepatic steatosis. Gallbladder and bile ducts: Distended gallbladder. Pancreas: Normal. No ductal dilation. Spleen: Normal. No splenomegaly. Adrenal glands: Normal. No mass. Kidneys and ureters: Hypodensity inferior right kidney similar to prior study. Stomach and bowel: Normal caliber small bowel. Decompressed colon. Appendix: The appendix is not identified with certainty. Intraperitoneal space: Unremarkable. No free air. No significant fluid collection. Vasculature: Atherosclerotic disease. Lymph nodes: Unremarkable. No enlarged lymph nodes. Urinary bladder: Unremarkable as visualized. Reproductive: Retroverted uterus. Bones/joints: Multilevel degenerative scoliotic changes of the spine. Decreased bone mineralization. Compression deformity L1 vertebral body. Fish-mouthing superior endplate of L3 and L4 vertebral bodies. Soft tissues: Unremarkable. IMPRESSION: 1. Bibasilar reticular markings similar to prior study. Trace pleural effusions. 2. Sequela of prior granulomatous disease. 3. Limitations as discussed above. 4. Additional findings as discussed above. Dictated and Authenticated by: Kandace Roberts MD. Ordering:SHEA Lucas MD
== END 2021-12-22 15:08 | disposition home or self-care (01) ==
PROVIDERS: Emergency Provider Student in an Organized Health Care Education/Training Program; PCP Family Medicine
DX: R19.7 Diarrhea, unspecified (principal); R10.12 Left upper quadrant pain; E86.0 Dehydration
CPT/HCPCS: 36415; 80053; 83690; 96374; 99284; 74176; 85025; J0131

== ENCOUNTER 2021-12-25 01:47 | Outpatient (RCR) | payer MEDICARE, BC, SELFPAY ==
[2021-12-25] MEDS: Denosumab 60 MG/ML SYR SC (14:38)
== END 2022-01-02 23:59 | disposition home or self-care (01) ==
LOC: INF 01:47
PROVIDERS: PCP Family Medicine; Visit Provider Family Medicine
DX: M81.0 Age-related osteoporosis without current pathological fracture (principal)
CPT/HCPCS: 96372; J0897

== ENCOUNTER → 2022-01-24 01:31 | Outpatient (CLI) | payer MEDICARE, BC, SELFPAY ==
--- NOTE | 2022-01-24 10:25 | DI.DEXA_ITS ---
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 COMPARISON: MR MR LUMBAR SPINE WO from 08/21/[address] THORACIC LUMBAR SPINE WO from 12/04/2021 CR,XR XR THORACIC SPINE COMPLETE from 12/04/2021 DEXA scans 2006, 2008 and 2019 FINDINGS: Lateral view of the thoracic and lumbar spine shows multiple thoracic compression fractures as well a s a compression fracture of L1 as seen on recent CT. Bone mineral density measurements of the lumbar spine correspond to a total T-score of -3.6, in the osteoporotic range. This represents an 11.6 percent decrease from 2019 a 6 percent decrease compared to 2006. Bone mineral density measurements of the left hip correspond to a total T-score of -2.6 . The femora l neck T-score is -2.7, in the osteoporotic range. This represents a 5.3 percent decrease compared with 2019 and a 16.5 percent decrease compared to 2006.. The left forearm bone mineral density measurements correspond to a T-score of the distal 3rd of -3.4 , in the osteoporotic range. This is slightly decreased from 2019 but represents an 18.1 percent dec rease when compared with 2008. Forearm was not analyzed in 2006.. IMPRESSION: Osteoporosis of the lumbar spine, left hip and left forearm with decrease in bone density compared wi th prior exams. Known thoracic and lumbar compression fractures.
== END ==
PROVIDERS: PCP Family Medicine; Visit Provider Family Medicine
DX: M81.0 Age-related osteoporosis without current pathological fracture (principal); Z13.820 Encounter for screening for osteoporosis
CPT/HCPCS: 77080

== ENCOUNTER → 2022-04-18 00:16 | Outpatient (CLI) | payer MEDICARE, BC, SELFPAY ==
--- NOTE | 2022-04-18 13:07 | DI.CTLCSR_ITS ---
Exam(s) CT CHEST LUNG CANCER SCREEN EXAM: CT CHEST LUNG CANCER SCREEN CLINICAL HISTORY: Screening for lung cancer F17.210 SMOKER TECHNIQUE: Imaging Protocol: Axial computed tomography images with coronal and sagittal reformatted images were created and reviewed COMPARISON: CT CT CHEST LUNG CANCER SCREEN from 04/11/[address] THORACIC LUMBAR SPINE WO from 12/04/2021 FINDINGS: Tracheobronchial tree: Patent where visualized. Pulmonary parenchyma: No consolidation or dominant measurable mass. Mild centrilobular emphysematous changes are present. There are calcified granuloma in the lungs. Dependent atelectasis is seen in t he lung bases. Lung Nodules: None. Mediastinum and Yumiko: No dominant adenopathy or fluid collection. The esophagus is unremarkable. Thyroid gland: Unremarkable. Lymph nodes: Unremarkable. Pleura: No effusion or pneumothorax. Heart: Mild cardiomegaly. Mild coronary artery calcification. No pericardial effusion. Aorta: Thoracic aorta non-dilated.Atherosclerosis is present. Upper abdomen: Unremarkable. Soft Tissues: Unremarkable. Bones: There has been no change in the T7 and T9 compression fracture deformities. There has been in terval development of a marked T10 compression fracture with loss of 60 percent of the height of the vertebral body. This is new since the examination from 12/04/2021. Mild retropulsion is seen but no s ignificant central spinal canal stenosis is present. There is a stable L1 compression fracture. IMPRESSION: 1. No noncalcified pulmonary nodules. 2. Stable T7-T9 and L1 compression fracture deformities since 12/04/2021. 3. New T10 compression fracture since 12/04/2021 with loss of at least 60 percent of the height of the vertebral body. No resulting central spinal canal stenosis. Lung RADS Cat 1 - Negative: No nodules and definitely benign nodules Modifier S Lung-RADS 1.0 CATEGORIES: Category 0 - Prior chest CT exam(s) being located for comparison. Category 1 - Annual screening in 12 months. No nodules or definitely benign nodules. Category 2 - Annual screening in 12 months. Benign appearance. Nodules with low likelihood of becomin g active cancer. Category 3 - 6-month follow-up. Probably benign. Short-term follow-up suggested. Nodules with low lik elihood of becoming active cancer. Category 4A - 3-month follow-up and CT/PET if >8 mm in size. Suspicious finding. Findings which requi re additional testing. Category 4B - Findings which require additional testing and tissue sampling. Suspicious finding. Category 4X - Category 3 or 4 nodules with additional features or imaging findings that increases the suspicion of malignancy. Modifier S- Potentially clinically significant finding. (Non lung cancer) RADIATION DOSE DELIVERED: 69.6mGy.cm Total DLP 1.84mGy CTDIvol 69.6mGy.cm Total DLP 1.84mGy CTDIvol DATA REPOSITORY: All CT scans at this facility are submitted to the National Radiology Data Registry (NRDR) Dose Index Registry (DIR) with the [employer] (ACR). RADIATION OPTIMIZATION: All CT scans at this facility use at least one of these dose optimization te chniques: automated exposure control; mA and/or kV adjustment per patient size (includes targeted exa ms where dose is matched to clinical indication); or iterative reconstruction.
== END ==
PROVIDERS: PCP Family Medicine; Visit Provider Family Medicine
DX: F17.210 Nicotine dependence, cigarettes, uncomplicated (principal); Z12.2 Encounter for screening for malignant neoplasm of respiratory organs
CPT/HCPCS: 71271

== ENCOUNTER 2022-04-30 03:31 | Outpatient (CLI) | payer MEDICARE, BC, SELFPAY ==
[2022-04-30 13:23] LABS: ALT 23 U/L (14-59); AST 17 U/L (15-37); Albumin 3.8 g/dL (3.4-5.0); Alkaline Phosphatase 77 U/L (46-116); Anion Gap 7.6 mmol/L (3-11); BUN 12 mg/dL (7-18); Bilirubin, Total 0.4 mg/dL (0.2-1.0); CO2 26.4 mmol/L (21.0-32.0); CREATININE 0.8 mg/dL (0.55-1.02); Calcium 9.2 mg/dL (8.5-10.1); Chloride 104 mmol/L (98-107); Estimated GFR 76.79 (mL/min/1.73m2); Glucose 84 mg/dL (74-106); PHOSPHORUS 3.5 mg/dL (2.6-4.7); Potassium 4.2 mmol/L (3.5-5.1); Sodium 138 mmol/L (136-145); TSH (W/Ref FT4) 1.74 uIU/mL (0.36-3.74); Total Protein 6.7 g/dL (6.4-8.2)
[2022-04-30 13:35] LABS: Vitamin D 25 Total 59.3 ng/mL (30-100)
[2022-05-01 13:59] LABS: Albumin 64.8 % (55.8-66.1); Albumin g/dL 3.8 g/dL (3.6-5.2); Total Protein 5.8 g/dL (6.3-8.2)
[2022-05-02 15:12] LABS: PTH-Related Peptide 0.6 pmol/L (< or = 4.2)
== END 2022-04-30 03:32 | disposition home or self-care (01) ==
LOC: LBO 03:31
PROVIDERS: PCP Family Medicine; Visit Provider Family Medicine
DX: F41.8 Other specified anxiety disorders (principal); M80.88XD Other osteoporosis with current pathological fracture, vertebra(e), subsequent encounter for fracture with routine healing
CPT/HCPCS: 36415; 80053; 82306; 82397; 84100; 84165; 84443

== ENCOUNTER 2022-05-06 14:49 | Outpatient (REF) | payer MEDICARE, BC, SELFPAY ==
[2022-05-06 16:51] LABS: Creatinine,Urine 40.13 mg/dL
[2022-05-06 17:01] LABS: Total Volume 2000 ml
[2022-05-08 09:08] LABS: Calcium Urine 24 hr 180 mg/24hrs (100-300); Timed Urine Volume 2000 mL
== END 2022-05-06 14:50 | disposition home or self-care (01) ==
LOC: LBN 14:49
PROVIDERS: PCP Family Medicine; Visit Provider Family Medicine
DX: M81.0 Age-related osteoporosis without current pathological fracture (principal); S22.000A Wedge compression fracture of unspecified thoracic vertebra, initial encounter for closed fracture
CPT/HCPCS: 81050; 82340; 82570

== ENCOUNTER 2022-07-09 13:38 | Emergency (ER) | payer MEDICARE, BC, SELFPAY ==
--- NOTE | 2022-07-09 13:45 | RT.EKG_ITS ---
APPROVED REPORT Exam: Resting ECG Reason for Exam: chest pain,sob Patient Location: E HR:81 bpm ECG Measurements Heart Rate 81 AXIS ID 140 P 50 QRSd 85 QRS -40 QT 366 T 2 QTc 424 Conclusion Sinus rhythm...normal P axis, V-rate 60- 99 Ventricular premature complex...V complex w/ short R-R interval Probable left atrial enlargement...P >50mS, <-0.10mV V1 Left axis deviation...QRS axis (-30,-90)
[2022-07-09 14:00] VITALS: BP 130/89; PULSE 82; RESP 18; TEMP 37.3; O2SAT 95
--- NOTE | 2022-07-09 15:00 | DI.RAD_ITS ---
Exam(s) XR CHEST 2V PA LATERAL EXAM: XR CHEST 2V PA LATERAL CLINICAL HISTORY: L rib/chest pain, cough TECHNIQUE: 2D digital imaging was performed. COMPARISON: CT CT CHEST LUNG CANCER SCREEN from 04/18/2022 FINDINGS: HEART: Normal size. Aorta: Not dilated. Tortuous PULMONARY VASCULATURE: Normal. LUNGS: Multiple scattered calcified granulomas, otherwise clear. PLEURAL SPACE: No pleural effusion or pneumothorax. BONE:Stable multiple thoracic compression fractures. IMPRESSION: No acute abnormality. DATA REPOSITORY: RADIATION DOSE DELIVERED:
--- NOTE | 2022-07-09 15:16 | ED.GENADUL_ITS ---
Discharge Plan Disposition Patient Disposition: Home Condition: Improving Discharge Details Clinical Impression: Acute bronchitis, Chest wall muscle strain Primary Care Provider: Annie Min ED Provider: Garry Culver Home Meds and New Rx's Prescriptions: New methocarbamol 500 mg tablet 500 mg PO Q6H PRN (Reason: Back pain or spasm) Qty: 14 0RF azithromycin 250 mg tablet See Rx Instructions .ROUTE .COMPLEX Qty: 6 0RF Rx Instructions: For 250 mg dose pack: take 500 mg today (day 1), then 250 mg for 4 days (days 2-5) Continued fluticasone propionate 50 mcg/actuation spray,suspension 2 spray HAYLEY DAILY PRN albuterol sulfate [ProAir HFA] 90 mcg/actuation HFA aerosol inhaler 2 puff Inhalation Q4H PRN Qty: 8.5 7RF multivitamin [Once Daily] 1 EACH tablet 1 tab PO DAILY ascorbic acid (vitamin C) [Vitamin C] 500 MG tablet 500 mg PO DAILY JOHANNA RED 1 cap PO DAILY BABY ASPIRIN 81 MG TAB.CHEW 81 mg PO DAILY metoprolol succinate 25 mg tablet extended release 24 hr 25 mg PO DAILY Qty: 90 12RF lorazepam 0.5 mg tablet 0.5 mg PO BID PRN (Reason: agitation) Qty: 30 0RF Rx Instructions: 30 day supply; use sparingly calcium carbonate [Caltrate 600] 600 MG tablet 600 mg PO BID cholecalciferol (vitamin D3) 1,000 UNITS tablet 1,000 unit PO DAILY lidocaine [Lidoderm] 5 % adhesive patch,medicated 1 patch TP DAILY PRN (Reason: pain) Qty: 15 0RF Rx Instructions: leave on most painful area for up to 12 hrs acetaminophen [Tylenol Extra Strength] 500 MG tablet 500 mg PO QID Qty: 0 0RF ibuprofen [Motrin IB] 200 MG tablet 400 mg PO PC Qty: 0 0RF Discontinued amoxicillin-pot clavulanate 875-125 mg tablet 1 tab PO Q12H Qty: 14 0RF Rx Instructions: Take 1 tablet twice a day for 7 days Discharge Instructions Instructions: Acute Bronchitis (ED), Muscle Strain (ED) Additional Instructions: May use methocarbamol 1 to 2 tablets every 4-6 hours as needed for pain. Remove Lidoderm patch in 12 hours time. Additional patches are available [id number]. Take antibiotics as prescribed. Continue your efforts to decrease tobacco use. May also use ibuprofen as needed for discomfort in addition to Tylenol. Medical Decision Making 77-year-old female presents from home with 10 days of cough, congestion, sinus pain, pressure and drainage. She has not had significantly high fevers. No known specific sick contacts. She does continue to smoke approximately 5 tobacco cigarettes per day. She has been using an inhaler, she was treated with 7 days of amoxicillin. This morning she developed left anterolateral chest wall discomfort during a coughing fit. Its reproducible on exam. Differential diagnosis would include strain, fracture, underlying pneumonia or bronchitis. Patient had POC viral swab obtained and referred for x-ray. X-ray with multiple thoracic compression fractures. No lung disease. POC viral swab negative. We will treat thoracic strain/intercostal strain with Lidoderm, methocarbamol. I do feel she has a bronchitis likely an atypical infection will prescribe a course of antibiotics. She is stable and appropriate outpatient management. HPI General Mode of arrival: ambulatory . Date/Time Provider Initiated Documentation: 07/09/22 14:08 . Limitations to Documentation: no limitations . Information obtained by: patient . History of Present Illness 77 year old F presents to the emergency department with the chief complaint of Left chest pain, cough for 10 days, described as moderate, Quality is described as dull, and is localized to the chest and left. Patient reports no radiation. Patient started experiencing this hour(s) and it has been intermittent. Rest improves symptom(s), Other factors that worsen symptoms (Coughing) . Patient notes cough; denies nausea/vomiting and shortness of breath. Patient did receive the following treatments prior to arrival, other (Finished 7 days of amoxicillin, notes sinus drainage and pressure, no high fevers.) Related Data Home Medications Medication Instructions Recorded Confirmed Johanna Red 1 cap PO DAILY 10/07/12 07/09/22 ascorbic acid (vitamin C) 500 mg 500 mg PO DAILY 10/07/12 07/09/22 tablet (Vitamin C) multivitamin (Once Daily tablet) 1 tab PO DAILY 10/07/12 07/09/22 calcium carbonate 600 mg calcium 600 mg PO BID 01/13/13 07/09/22 (1,500 mg) tablet (Caltrate 600) cholecalciferol (vitamin D3) 25 1,000 unit PO DAILY 01/13/13 07/09/22 mcg (1,000 unit) tablet Baby Aspirin 81 mg PO DAILY 11/14/13 07/09/22 fluticasone propionate 50 2 spray intranasal DAILY PRN 07/08/18 07/09/22 mcg/actuation nasal spray,suspension lidocaine 5 % topical patch 1 patch topical DAILY PRN pain #15 12/09/19 07/09/22 (Lidoderm) ea acetaminophen 500 mg tablet 500 mg PO QID #0 tabs 08/06/20 07/09/22 (Tylenol Extra Strength) ibuprofen 200 mg tablet (Motrin IB) 400 mg PO PC #0 tabs 08/06/20 07/09/22 metoprolol succinate 25 mg 25 mg PO DAILY #90 tabs 03/06/22 07/09/22 tablet,extended release 24 hr albuterol sulfate 90 mcg/actuation 2 puff inhalation Q4H PRN #8.5 04/03/22 07/09/22 aerosol inhaler (ProAir HFA) grams lorazepam 0.5 mg tablet 0.5 mg PO BID PRN agitation #30 05/22/22 07/09/22 tabs azithromycin 250 mg tablet See Rx Instructions PO .COMPLEX #6 07/09/22 tabs methocarbamol 500 mg tablet 500 mg PO Q6H PRN Back pain or 07/09/22 spasm #14 tabs Previous Rx's Medication Instructions Recorded lidocaine 5 % topical patch 1 patch topical DAILY PRN pain #15 12/09/19 (Lidoderm) ea acetaminophen 500 mg tablet 500 mg PO QID #0 tabs 08/06/20 (Tylenol Extra Strength) ibuprofen 200 mg tablet (Motrin IB) 400 mg PO PC #0 tabs 08/06/20 metoprolol succinate 25 mg 25 mg PO DAILY #90 tabs 03/06/22 tablet,extended release 24 hr albuterol sulfate 90 mcg/actuation 2 puff inhalation Q4H PRN #8.5 04/03/22 aerosol inhaler (ProAir HFA) grams lorazepam 0.5 mg tablet 0.5 mg PO BID PRN agitation #30 05/22/22 tabs azithromycin 250 mg tablet See Rx Instructions PO .COMPLEX #6 07/09/22 tabs methocarbamol 500 mg tablet 500 mg PO Q6H PRN Back pain or 07/09/22 spasm #14 tabs Allergies Allergy/AdvReac Type Severity Reaction Status Date / Time doxycycline Allergy Mild Unverified 07/09/22 14:04 bupropion AdvReac Mild Unverified 07/09/22 14:04 guaifenesin AdvReac Mild Unverified 07/09/22 14:04 Sulfa (Sulfonamide AdvReac Unknown Nausea Unverified 07/09/22 14:04 Antibiotics) General Stated Complaint: Chest/Rib DEVIN: 3 Review of Systems Narrative: See HPI 8 systems were reviewed PFSH All Active Problems (Updated 07/09/22 @ 16:40 by Garry Culver MD) Acute bronchitis (Acute) Chest wall muscle strain (Acute) Compression fracture of body of thoracic vertebra (Acute) Right knee DJD (Acute) Diarrhea (Acute) Anxiety (Chronic) Right knee pain (Acute) Intractable low back pain (Acute) Atypical chest pain (Acute) Chest pain, rule out acute myocardial infarction (Acute) Back pain (Acute) Compression fracture (Chronic) Back pain (Acute) Foot pain, bilateral (Acute) Chronic left shoulder pain (Acute 01/08/16) Abdominal pain (Acute) Paroxysmal atrial fibrillation (Chronic) Smoker (Acute 07/25/08) Osteoporosis (Chronic 09/02/01) T -4.5 Onychomycosis (Chronic 02/02/17) Hiatal hernia (Chronic 09/02/01) EGD CONFIRMED. 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) Depressive disorder (Chronic) Medical History (Updated 07/09/22 @ 16:40 by Garry Culver MD) Abnormal laboratory test result Breast lump (11/02/02) Closed fracture of rib Foot pain, right Grief (12/18/14) History of echocardiogram Hypokalemia (06/17/12) Standard chest x-ray abnormal Surgical History section (05/19/75) Colonoscopy - MAC (06/08/07) ECHO (10/15/12) PAROXYSMAL A-FIB ([facility]) EGD - MAC (~2001) HH History of section History of esophagogastroduodenoscopy Family History Mother , 97 Rectal cancer Father , 75 COPD (chronic obstructive pulmonary disease) Sister , 73 Neoplasm BREAST Breast cancer Sister Diabetes COPD (chronic obstructive pulmonary disease) Hyperlipidemia Brother Essential hypertension Hyperlipidemia Maternal Grandfather , 73 Depression Paternal Grandfather , 73 Stroke Maternal Grandmother , 65 Lung cancer Paternal Grandmother , 78 No problems noted. Son No problems noted. Daughter No problems noted. Social History Smoking/Tobacco Use Status: Current every day Tobacco Type: cigarettes and pipe Tobacco: How many years used: 50 Quit status: considering quitting Second Hand Exposure: Yes Smoking risk assessment performed?: Yes Alcohol Intake: current Alcohol type: beer Drug use: Never Substance use type: does not use Caregiver/Support person: No Household members: none Housing: apartment Do you need help understanding health information?: Rarely Pets and animals: Yes Pets and animals: cat(s) Sexually active: No Do you think of yourself as: straight/heterosexual Current gender identity: female What is your relationship status?: How often do you talk on the phone with friends or family?: three or more times per week How often do you get together with friends or relatives?: twice per week How often do you attend holiness or sikhism services?: decline to answer Do you belong to any clubs or organized social groups?: no Panel score (0-1 are the most socially isolated patients): 1 What type of physical activity do you participate in: walking and other Details: Murphy Ball, Bill Chi, stationary bike Duration: 60-90 minutes/day Frequency: 5-6 times per week Komal/Methodist: Jew Seatbelt use: always 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 Pleasant, well groomed, interactive. HEAD: Normocephalic, atraumatic ENT: Mucous membranes moist, oropharynx unremarkable, tympanic membranes visualized and clear bilaterally, discrete to minimal maxillary tenderness to percussion. External ear exam unremarkable EYES: PERRL, EOMI NECK: Full ROM, no ISRAEL, no menigismus CHEST/RESP: Chest wall tender laterally to the lower left breast margin. No rash, = left rhonchi, left anterior chest wall tenderness, no posterior rib tenderness, otherwise clear to auscultation, cough is noted. CARDIOVASCULAR: RRR, no murmur, rub maricarmen. 2+ Rad pulse bilateral ABDOMEN: Soft, nontender, no mass. +Bowel sounds EXT: Full ROM, no edema, no rash Neuro: Grossly normal neurologic exam, conversant, interactive. Psych: Speech fluent, thoughts congruent, affect normal Course Vital Signs Vital signs: Vital Signs Temperature 37.3 C 07/09/22 14:00 Pulse 82 07/09/22 14:00 Respiratory Rate 18 07/09/22 14:00 Blood Pressure 130/89 07/09/22 14:00 Pulse Oximetry 95 07/09/22 14:00 Temperature 37.3 C 07/09/22 14:00 Temperature Source Skin 07/09/22 14:00 Pulse 82 07/09/22 14:00 Respiratory Rate 18 07/09/22 14:00 Respiratory Effort 07/09/22 15:12 Respiratory Depth Normal 07/09/22 15:12 Respiratory Pattern Normal 07/09/22 15:12 Blood Pressure 130/89 07/09/22 14:00 Blood Pressure Position Sitting 07/09/22 14:00 Pulse Oximetry 95 07/09/22 14:00 Oxygen Delivery Method Room Air 07/09/22 14:00 Oxygen Flow Rate 0 07/09/22 14:00 Pain Level 5 07/09/22 14:00
[2022-07-09 16:20] VITALS: BP 133/96; PULSE 70; RESP 18; TEMP 36.8; O2SAT 95
[2022-07-09] MEDS: Lidocaine 5% Patch 1 PATCH TP (16:52)
== END 2022-07-09 16:54 | disposition home or self-care (01) ==
PROVIDERS: Emergency Provider Emergency Medicine; PCP Family Medicine
DX: S29.011A Strain of muscle and tendon of front wall of thorax, initial encounter (principal); J20.9 Acute bronchitis, unspecified; F17.210 Nicotine dependence, cigarettes, uncomplicated; F17.290 Nicotine dependence, other tobacco product, uncomplicated; X58.XXXA Exposure to other specified factors, initial encounter
CPT/HCPCS: 93005; 99283; 71046; 93010; 99284

== ENCOUNTER 2022-08-06 03:40 | Outpatient (RCR) | payer MEDICARE, BC, SELFPAY ==
[2022-08-06] MEDS: Denosumab 60 MG/ML SYR SC (12:56)
== END 2022-09-02 23:59 | disposition home or self-care (01) ==
LOC: INF 03:40
PROVIDERS: PCP Family Medicine; Visit Provider Family Medicine
DX: M81.0 Age-related osteoporosis without current pathological fracture (principal)
CPT/HCPCS: 96372; J0897

== ENCOUNTER 2022-11-06 15:04 | Outpatient (REF) | payer MEDICARE, BC, SELFPAY ==
[2022-11-06 20:51] LABS: Bilirubin Negative (Negative); Blood Trace-intact (Negative); Clarity Clear (Clear); Glucose Negative (Negative); Ketones Negative (Negative); Leukocyte Esterase Negative (Negative); Nitrite Negative (Negative); Urobilinogen 0.2 mg/dL (Up to 0.2); pH 5.5 (5-8)
[2022-11-06 21:14] LABS: Bacteria Rare HPF (Negative); C & S Indicated? No; Casts Negative LPF (Negative); Crystals Negative HPF (Negative); Epithelial Cells Rare HPF (Negative); Mucus Negative (Negative); RBC 0-2 HPF (0-2); WBC Negative HPF (0-5)
== END 2022-11-06 15:05 | disposition home or self-care (01) ==
LOC: LBN 15:04
PROVIDERS: PCP Family Medicine; Visit Provider Family Medicine
DX: R35.0 Frequency of micturition (principal)
CPT/HCPCS: 81003; 81015

== ENCOUNTER 2023-02-11 02:33 | Outpatient (RCR) | payer MEDICARE, BC, SELFPAY ==
[2023-02-11] MEDS: Denosumab 60 MG/ML SYR SC (13:29)
== END 2023-03-05 23:59 | disposition home or self-care (01) ==
LOC: INF 02:33
PROVIDERS: PCP Family Medicine; Visit Provider Family Medicine
DX: M81.0 Age-related osteoporosis without current pathological fracture (principal)
CPT/HCPCS: 96372; J0897

== ENCOUNTER → 2023-04-22 03:21 | Outpatient (CLI) | payer MEDICARE, BC, SELFPAY ==
--- NOTE | 2023-04-22 07:00 | DI.CTLCSR_ITS ---
Exam(s) CT CHEST LUNG CANCER SCREEN EXAM: CT CHEST LUNG CANCER SCREEN CLINICAL HISTORY: Screening for lung cancer,current smoker, f17.210 TECHNIQUE: Imaging Protocol: Axial computed tomography images with coronal and sagittal reformatted images were created and reviewed COMPARISON: CT CT CHEST LUNG CANCER SCREEN from 04/18/2022 FINDINGS: Tracheobronchial tree: Patent where visualized. Pulmonary parenchyma: Mild centrilobular emphysematous changes are present. There are calcified gran uloma present. No focal consolidating infiltrates are seen. There is mild dependent atelectatic narciso nge in the lung bases. No architectural distortion. Lung Nodules: No noncalcified pulmonary nodules are seen. Mediastinum and Yumiko: Calcified lymph nodes are seen in the mediastinum consistent with prior granulo matous disease. No significant adenopathy is present. The esophagus is unremarkable. Thyroid gland: Unremarkable. Lymph nodes: Unremarkable. Pleura: No effusion or pneumothorax. Heart: The heart is not dilated. Coronary artery calcification is present. No pericardial effusion. Aorta: Thoracic aorta non-dilated.Atherosclerosis. Upper abdomen: Right nephrolithiasis. Soft Tissues: Unremarkable. Bones: Within normal limits. Multiple old thoracic compression fracture deformities. IMPRESSION: No noncalcified pulmonary nodules. Lung RADS Cat 1 - Negative: No nodules and definitely benign nodules Lung-RADS 1.0 CATEGORIES: Category 0 - Prior chest CT exam(s) being located for comparison. Category 1 - Annual screening in 12 months. No nodules or definitely benign nodules. Category 2 - Annual screening in 12 months. Benign appearance. Nodules with low likelihood of becomin g active cancer. Category 3 - 6-month follow-up. Probably benign. Short-term follow-up suggested. Nodules with low lik elihood of becoming active cancer. Category 4A - 3-month follow-up and CT/PET if >8 mm in size. Suspicious finding. Findings which requi re additional testing. Category 4B - Findings which require additional testing and tissue sampling. Suspicious finding. Category 4X - Category 3 or 4 nodules with additional features or imaging findings that increases the suspicion of malignancy. Modifier S- Potentially clinically significant finding. (Non lung cancer) RADIATION DOSE DELIVERED: Total DLP Total DLP DATA REPOSITORY: All CT scans at this facility are submitted to the National Radiology Data Registry (NRDR) Dose Index Registry (DIR) with the [employer] (ACR). RADIATION OPTIMIZATION: All CT scans at this facility use at least one of these dose optimization te chniques: automated exposure control; mA and/or kV adjustment per patient size (includes targeted exa ms where dose is matched to clinical indication); or iterative reconstruction.
== END ==
PROVIDERS: PCP Family Medicine; Visit Provider Family Medicine
DX: F17.210 Nicotine dependence, cigarettes, uncomplicated (principal); Z12.2 Encounter for screening for malignant neoplasm of respiratory organs
CPT/HCPCS: 71271

== ENCOUNTER 2023-07-16 22:45 | Emergency (ER) | payer MEDICARE, BC, SELFPAY ==
[2023-07-16 22:57] VITALS: BP 162/102; PULSE 98; RESP 16; TEMP 36.8; O2SAT 97
[2023-07-16 23:25] LABS: Bilirubin Small (Negative); Blood Large (Negative); Clarity Turbid (Clear); Glucose Negative (Negative); Ketones Trace mg/dL (Negative); Leukocyte Esterase Trace (Negative); Nitrite Negative (Negative); Urobilinogen 0.2 mg/dL (Up to 0.2); pH 5.5 (5-8)
[2023-07-16 23:29] LABS: C & S Indicated? Yes; RBC >50 HPF (0-2)
[2023-07-16 23:58] LABS: Abs Immature Grans 0.01 10^3/uL (0.0-0.06); Absolute Basophil Count 0.14 10^3/uL (0.0-0.2); Absolute Eosinophil Count 0.29 10^3/uL (0.0-0.7); Absolute Lymphocyte Count 1.44 10^3/uL (1.2-3.4); Absolute Monocyte Count 0.43 10^3/uL (0.1-0.8); Absolute Neutrophil Count 3.78 10^3/uL (1.2-6.7); Basophils % 2.3; Eosinophils % 4.8; HCT 45.3 % (36.0-46.0); HGB 15.3 g/dL (11.2-15.7); Immature Grans % 0.2; Lymphocytes % 23.6; MCH 32.1 pg (27.0-33.0); MCHC 33.8 % (32.0-36.0); MCV 95 fL (80-95); MPV 10.9 fL (8.0-11.0); Monocytes % 7.1; Platelet Count 173 10^3/uL (130-400); RBC 4.77 10^6/uL (3.93-5.22); RDW 13.3 % (11.7-14.6); RDW-SD 47.2 fL; WBC 6.09 10^3/uL (4.4-10.8)
--- NOTE | 2023-07-17 | DI.CT_ITS ---
Exam(s) CT ABDOMEN PELVIS WO EXAM: CT ABDOMEN PELVIS WO CLINICAL HISTORY: hematuria, r/o stone. TECHNIQUE: Imaging Protocol: Axial computed tomography images with coronal and sagittal reformatted images were created and reviewed. COMPARISON: CT RENAL COLIC WO CONTRAST from 09/21/[address] THORAX ABD/PEL CTA from 07/06/[address] ABDOMEN PELVIS WO from 12/22/[address] CHEST LUNG CANCER SCREEN from 04/22/2023 FINDINGS: ABDOMEN: Lung Bases: Calcified granuloma are seen in the lung bases. There is stable scarring seen in the shanna g bases. Liver: Normal density. No measurable mass. Gallbladder and biliary tract: No radiodense calculus or biliary ductal dilation. Pancreas: Normal density, no abnormal calcifications or inflammatory process. Spleen: Normal. Kidneys: Normal size, contour and axis.There is a 2 mm nonobstructing stone in the midpole of the lef t kidney. There is a 3 mm stone in the mid right ureter causing mild hydronephrosis. No masses seen . Adrenal glands: No mass is seen. Lymph nodes: Within normal limits. Abdominal Aorta: Abdominal portion non-dilated. Atherosclerosis. PELVIS: Bladder:Symmetric distention, no gross wall thickening. Bowel: No obstruction or bowel wall thickening. There is stool throughout the colon suggesting consti pation. There is no evidence of appendicitis. Peritoneal cavity: No ascites, collection or mesenteric inflammatory response. No free air. Stable 3.2 x 2.6 cm predominantly fat density lesion in the presacral space on the left (series 3, image 502 ). This may represent a lipoma. Reproductive organs: Unremarkable as visualized. Bones: Within normal limits for the patient's age. There are old compression deformities seen in the lumbar spine. Soft Tissues: Within normal limits. IMPRESSION: 1. 3 mm mid right ureteral stone causing mild hydronephrosis. 2. Left nephrolithiasis. No obstructive uropathy. 3. Incidental finding seen in the abdomen and pelvis as described above. RADIATION DOSE DELIVERED: 681.53mGy.cm Total DLP DATA REPOSITORY: All CT scans at this facility are submitted to the National Radiology Data Registry (NRDR) Dose Index Registry (DIR) with the [employer] (ACR). RADIATION OPTIMIZATION: All CT scans at this facility use at least one of these dose optimization te chniques: automated exposure control; mA and/or kV adjustment per patient size (includes targeted exa ms where dose is matched to clinical indication); or iterative reconstruction.
[2023-07-17 00:12] LABS: ALT 24 U/L (14-59); AST 19 U/L (15-37); Albumin 3.9 g/dL (3.4-5.0); Alkaline Phosphatase 92 U/L (46-116); Anion Gap 7.6 mmol/L (3-11); BUN 15 mg/dL (7-18); Bilirubin, Total 0.4 mg/dL (0.2-1.0); CO2 29.4 mmol/L (21.0-32.0); CREATININE 0.9 mg/dL (0.55-1.02); Calcium 9.4 mg/dL (8.5-10.1); Chloride 102 mmol/L (98-107); Estimated GFR 66.26 (mL/min/1.73m2); Glucose 120 mg/dL (74-106); Potassium 3.8 mmol/L (3.5-5.1); Sodium 139 mmol/L (136-145)
[2023-07-17 00:18] LABS: PTT Activated 25.7 sec (23.6-32.8); Prothrombin Time 9.9 sec (9.1-11.1)
--- NOTE | 2023-07-17 00:39 | ED.GENADUL_ITS ---
HPI General Stated Complaint: Urinary DEVIN: 3 Date/Time Provider Initiated Documentation: 07/16/23 22:45. HPI Narrative: This is a very pleasant 78-year-old female with a past medical history of atrial fibrillation, kidney stone, anxiety, depression, hypertension, currently on daily aspirin but no anticoagulation otherwise, presents today for evaluation of hematuria. Patient states that starting tonight she noticed that her urine was dark and pink. This is atypical for her. She has had blood in her urine before but it is always been associated with pain and kidney stones. She denies fever or chills. She denies abdominal or flank pain. She denies nausea vomiting or diarrhea. She denies any vaginal bleeding. No other complaints at this time. No other modifying factors. She denies any dysuria. She denies any urinary frequency. Related Data Home Medications Medication Instructions Recorded Confirmed Johanna Red 1 cap PO DAILY 10/07/12 03/16/23 ascorbic acid (vitamin C) 500 mg 500 mg PO DAILY 10/07/12 03/16/23 tablet (Vitamin C) multivitamin (Once Daily tablet) 1 tab PO DAILY 10/07/12 03/16/23 calcium carbonate 600 mg calcium 600 mg PO BID 01/13/13 03/16/23 (1,500 mg) tablet (Caltrate 600) cholecalciferol (vitamin D3) 25 1,000 unit PO DAILY 01/13/13 03/16/23 mcg (1,000 unit) tablet Baby Aspirin 81 mg PO DAILY 11/14/13 03/16/23 fluticasone propionate 50 2 spray intranasal DAILY PRN 07/08/18 03/16/23 mcg/actuation nasal spray,suspension lidocaine 5 % topical patch 1 patch topical DAILY PRN pain #15 12/09/19 03/16/23 (Lidoderm) ea acetaminophen 500 mg tablet 500 mg PO QID #0 tabs 08/06/20 03/16/23 (Tylenol Extra Strength) ibuprofen 200 mg tablet (Motrin IB) 400 mg (2 x 200 mg) PO PC #0 tabs 08/06/20 03/16/23 albuterol sulfate 90 mcg/actuation 2 puff inhalation Q4H PRN #8.5 03/16/23 03/16/23 aerosol inhaler (ProAir HFA) grams metoprolol succinate 25 mg 25 mg PO DAILY #90 tabs 03/16/23 03/16/23 tablet,extended release 24 hr lorazepam 0.5 mg tablet 0.5 mg PO BID PRN agitation #30 05/12/23 tabs ketorolac 10 mg tablet 10 mg PO TID 5 days #15 tabs 07/17/23 tamsulosin 0.4 mg capsule (Flomax) 0.4 mg PO DAILY #10 caps 07/17/23 Previous Rx's Medication Instructions Recorded lidocaine 5 % topical patch 1 patch topical DAILY PRN pain #15 12/09/19 (Lidoderm) ea acetaminophen 500 mg tablet 500 mg PO QID #0 tabs 08/06/20 (Tylenol Extra Strength) ibuprofen 200 mg tablet (Motrin IB) 400 mg (2 x 200 mg) PO PC #0 tabs 08/06/20 albuterol sulfate 90 mcg/actuation 2 puff inhalation Q4H PRN #8.5 03/16/23 aerosol inhaler (ProAir HFA) grams metoprolol succinate 25 mg 25 mg PO DAILY #90 tabs 03/16/23 tablet,extended release 24 hr lorazepam 0.5 mg tablet 0.5 mg PO BID PRN agitation #30 05/12/23 tabs ketorolac 10 mg tablet 10 mg PO TID 5 days #15 tabs 07/17/23 tamsulosin 0.4 mg capsule (Flomax) 0.4 mg PO DAILY #10 caps 07/17/23 Allergies Allergy/AdvReac Type Severity Reaction Status Date / Time doxycycline Allergy Mild Unverified 03/16/23 10:29 bupropion AdvReac Mild Unverified 03/16/23 10:29 guaifenesin AdvReac Mild Unverified 03/16/23 10:29 Sulfa (Sulfonamide AdvReac Unknown Nausea Unverified 03/16/23 10:29 Antibiotics) Review of Systems All systems reviewed & are unremarkable except as noted in HPI and below PFSH All Active Problems (Updated 07/17/23 @ 01:27 by Julio Stratton DO) Urolithiasis (Acute) Skin exam for malignant neoplasm (Acute) Compression fracture of body of thoracic vertebra (Acute) Right knee DJD (Acute) Diarrhea (Acute) Anxiety (Chronic) Right knee pain (Acute) Intractable low back pain (Acute) Atypical chest pain (Acute) Chest pain, rule out acute myocardial infarction (Acute) Back pain (Acute) Compression fracture (Chronic) Back pain (Acute) Foot pain, bilateral (Acute) Chronic left shoulder pain (Acute 01/08/16) Abdominal pain (Acute) Paroxysmal atrial fibrillation (Chronic) Smoker (Acute 07/25/08) Osteoporosis (Chronic 09/02/01) T -4.5 Onychomycosis (Chronic 02/02/17) Hiatal hernia (Chronic 09/02/01) EGD CONFIRMED. 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) Depressive disorder (Chronic) Medical History (Updated 07/17/23 @ 01:27 by Julio Stratton DO) Foot pain, right Abnormal laboratory test result Breast lump (11/02/02) Closed fracture of rib Grief (12/18/14) History of echocardiogram Hypokalemia (06/17/12) Standard chest x-ray abnormal Surgical History History of section History of esophagogastroduodenoscopy section (05/19/75) EGD - MAC (~2001) HH ECHO (10/15/12) PAROXYSMAL A-FIB ([facility]) Colonoscopy - MAC (06/08/07) Family History Mother , 97 Rectal cancer Father , 75 COPD (chronic obstructive pulmonary disease) Sister , 73 Neoplasm BREAST Breast cancer Sister Diabetes COPD (chronic obstructive pulmonary disease) Hyperlipidemia Brother Essential hypertension Hyperlipidemia Maternal Grandfather , 73 Depression Paternal Grandfather , 73 Stroke Maternal Grandmother , 65 Lung cancer Paternal Grandmother , 78 No problems noted. Son No problems noted. Daughter No problems noted. Social History Smoking/Tobacco Use Status: Current every day Tobacco Type: cigarettes and pipe Tobacco: How many years used: 50 Quit status: not considering quitting Second Hand Exposure: Yes Smoking risk assessment performed?: Yes Alcohol Intake: current Alcohol Intake frequency: a few times a week Alcohol type: beer Drug use: Never Substance use type: does not use Caregiver/Support person: No Household members: none Housing: apartment Communication Needs: None Do you need help understanding health information?: Rarely Pets and animals: Yes Pets and animals: cat(s) Sexually active: No Do you think of yourself as: straight/heterosexual Current gender identity: female What is your relationship status?: How often do you talk on the phone with friends or family?: three or more times per week How often do you get together with friends or relatives?: twice per week How often do you attend restorationism or christian services?: decline to answer Do you belong to any clubs or organized social groups?: no Panel score (0-1 are the most socially isolated patients): 1 What type of physical activity do you participate in: walking and other Details: Murphy Ball, [place], stationary bike Duration: 60-90 minutes/day Frequency: 5-6 times per week Komal/Nondenominational: Anabaptist Seatbelt use: always Drive intox or ride w/intox shuttle van driver: No Do you feel safe at home: Yes Do you feel safe in your relationship?: Yes Exam Narrative Exam Narrative: 1.Const: Well-nourished, Well-developed, appearing stated age 2.Eyes: PERRL, no conjunctival injection, and symmetrical lids. 3.ENT: Atraumatic external nose and ears. Moist MM. Neck: Symmetric, trachea midline, No thyromegaly. 4.CVS: +S1/S2, No murmurs or gallops. Peripheral pulses 2+ and equal in all extremities. Brisk capillary refill in all extremities. 5.RESP: Unlabored respiratory effort. Clear to auscultation bilaterally. No wheezes rales or rhonchi 6.GI: Soft, Nontender/Nondistended, No hepatosplenomegaly. No guarding or rebound. No flank or CVA tenderness. 7.MSK: Normocephalic/Atraumatic, Extremities w/o deformity or ttp No cyanosis or clubbing, Normal movement of all extremities 8.Skin: Warm, Dry. No rashes or lesions. 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 Sensation grossly intact, no focal neurologic deficits. 10.Psych: (AAO) x3. Appropriate mood and affect Course Vital Signs Vital signs: Vital Signs Temperature 36.8 C 07/16/23 22:57 Pulse 98 H 07/16/23 22:57 Respiratory Rate 16 07/16/23 22:57 Blood Pressure 162/102 H 07/16/23 22:57 Pulse Oximetry 97 07/16/23 22:57 Temperature 36.8 C 07/16/23 22:57 Temperature Source Skin 07/16/23 22:57 Pulse 98 H 07/16/23 22:57 Respiratory Rate 16 07/16/23 22:57 Respiratory Effort Normal, Non-Labored 07/16/23 23:04 Blood Pressure 162/102 H 07/16/23 22:57 Blood Pressure Position Sitting 07/16/23 22:57 Pulse Oximetry 97 07/16/23 22:57 Oxygen Delivery Method Room Air 07/16/23 22:57 Oxygen Flow Rate 0 07/16/23 22:57 Pain Level 0 07/16/23 23:04 Lab/Test Results Lab/Test Results: 07/16/23 23:20 Urine - Reflex from Ua Urine Culture - Pending Laboratory Tests Range/Units 07/16/23 07/16/23 23:20 23:49 WBC (4.4-10.8) 10^3/uL 6.09 RBC (3.93-5.22) 10^6/uL 4.77 Hgb (11.2-15.7) g/dL 15.3 Hct (36.0-46.0) % 45.3 MCV (80-95) fL 95 MCH (27.0-33.0) pg 32.1 MCHC (32.0-36.0) % 33.8 RDW (11.7-14.6) % 13.3 Plt Count (130-400) 10^3/uL 173 MPV (8.0-11.0) fL 10.9 Immature Gran % 0.2 Neutrophils % 62.0 Lymphocytes % 23.6 Monocytes % 7.1 Eosinophils % 4.8 Basophils % 2.3 Nucleated RBC % (0.0-0.3) % 0.0 Absolute Neutrophils (1.2-6.7) 10^3/uL 3.78 Absolute Lymphocytes (1.2-3.4) 10^3/uL 1.44 Absolute Monocytes (0.1-0.8) 10^3/uL 0.43 Absolute Eosinophils (0.0-0.7) 10^3/uL 0.29 Absolute Basophils (0.0-0.2) 10^3/uL 0.14 PT (9.1-11.1) sec 9.9 INR (0.9-1.1) 1.0 APTT (23.6-32.8) sec 25.7 Sodium (136-145) mmol/L 139 Potassium (3.5-5.1) mmol/L 3.8 Chloride (98-107) mmol/L 102 Carbon Dioxide (21.0-32.0) mmol/L 29.4 Anion Gap (3-11) mmol/L 7.6 BUN (7-18) mg/dL 15 Creatinine (0.55-1.02) mg/dL 0.9 Est GFR (CKD-EPI 2020) (mL/min/1.73m2) 66.26 Glucose (74-106) mg/dL 120 H Calcium (8.5-10.1) mg/dL 9.4 Total Bilirubin (0.2-1.0) mg/dL 0.4 AST (15-37) U/L 19 ALT (14-59) U/L 24 Alkaline Phosphatase (46-116) U/L 92 Total Protein (6.4-8.2) g/dL 7.0 Albumin (3.4-5.0) g/dL 3.9 Urine Color (Yellow) Red Urine Clarity (Clear) Turbid Urine pH (5-8) 5.5 Ur Specific [place] (1.005-1.025) 1.020 Urine Protein (Negative) mg/dL 100 H Urine Ketones (Negative) mg/dL Trace H Urine Blood (Negative) Large H Urine Nitrite (Negative) Negative Urine Bilirubin (Negative) Small H Urine Urobilinogen (Up to 0.2) mg/dL 0.2 Ur Leukocyte Esterase (Negative) Trace H Urine RBC (0-2) HPF >50 H Urine WBC Not Applicable Ur Epithelial Cells Not Applicable Urine Crystals Not Applicable Urine Bacteria Not Applicable Urine Mucus Not Applicable Ur Culture Indicated? Yes Urine Glucose (Negative) mg/dL Negative Medical Decision Making This is a very pleasant 78-year-old female with a past medical history of atrial fibrillation, kidney stone, anxiety, depression, hypertension, currently on daily aspirin but no anticoagulation otherwise, presents today for evaluation of hematuria. Patient states that starting tonight she noticed that her urine was dark and pink. This is atypical for her. She has had blood in her urine before but it is always been associated with pain and kidney stones. She denies fever or chills. She denies abdominal or flank pain. She denies nausea vomiting or diarrhea. She denies any vaginal bleeding. No other complaints at this time. No other modifying factors. She denies any dysuria. She denies any urinary frequency. Exam demonstrates well-appearing female, no flank or CVA tenderness. No abdominal tenderness. Differential includes interstitial cystitis, kidney stone, hematuria secondary to bladder ulcer. Will get a urinalysis, monitor closely and reassess. UTI is also on the differential but less likely. 12:44 AM Laboratory workup shows no white count bandemia or left shift. Platelets are normal, hemoglobin normal, PT PTT and INR normal are normal. Renal function normal. Electrolytes are normal. Urinalysis demonstrates notable RBCs, no nitrites. No evidence of infection otherwise. CT scan was ordered, pending read, however upon my visual inspection there appears to be kidney stone in the right ureter. Pending formal read. Will give Flomax and Toradol. 1:[address] scan has returned and shows evidence of acute kidney stone 3 mm in the left upper right ureter. With renal function normal and no evidence of infection I do feel that the patient is safe for discharge with close follow-up with urology Dr. Taylor. Will give Flomax for home use. Will give a prescription for Toradol to take as needed if she develops pain. Will give a strainer. Otherwise with no pain infection or signs of renal damage I do feel that discharge is appropriate with close follow-up at this time. Discussed red flags which to return. I have extensively reviewed the treatment plan and discharge instructions with the patient and their family. I have addressed all patient concerns at this time. The patient and family was made aware of what symptoms to monitor for that would warrant a return to the emergency department. Discussed the plan with the patient and family, they demonstrate verbal understanding and agreement with our assessment and plan at this time. The documentation in this chart was dictated using [employer] dictation software. Please excuse any dictation errors. FINDINGS: Lungs: There are benign, calcified pulmonary granulomas. Heart: Cardiomegaly is partially seen. Trace pericardial fluid appears likely physiologic. Liver: No hepatic masses on noncontrast imaging. Gallbladder and bile ducts: No calcified stones. No ductal dilation. Pancreas: No gross pathology in the pancreas on noncontrast imaging. Spleen: No splenomegaly or focal lesions. Adrenal glands: No mass. Kidneys and ureters: 3 mm calculus in the upper right ureter causing moderate right hydronephrosis. No right nephrolithiasis. No left nephrolithiasis. No left hydronephrosis. Stomach and bowel: Colonic diverticulosis without diverticulitis. No gross pathology in the small bowel without IV contrast. Appendix: No evidence of appendicitis. Intraperitoneal space: No free air. No significant fluid collection. Vasculature: Tortuous aorta. Atherosclerosis. Lymph nodes: No significantly enlarged lymph nodes. Urinary bladder: The bladder is decompressed and the wall is not well assessed. No stones in the urinary bladder. Reproductive: Unremarkable as visualized. Bones/joints: Chronic bony changes with no acute fracture. Soft tissues: No suspicious lesions. Other findings: Motion artifact in the abdomen. IMPRESSION: 3 mm calculus in the upper right ureter causing moderate right hydronephrosis. Incidental findings as above. Thank you for allowing us to participate in the care of your patient. Dictated and Authenticated by: Rebecca Robles MD 07/17/2023 12:55 AM Eastern Time ([place] & [place]) Quality:SDOH Health Related Social Needs: No Data to Display Discharge Plan Disposition Patient Disposition: Home Discharge Details Clinical Impression: Urolithiasis Primary Care Provider: Annie Min ED Provider: Julio Stratton Home Meds and New Rx's Prescriptions: New ketorolac 10 mg tablet 10 mg PO TID 5 Days Qty: 15 0RF tamsulosin [Flomax] 0.4 mg capsule 0.4 mg PO DAILY Qty: 10 0RF No Action fluticasone propionate 50 mcg/actuation spray,suspension 2 spray HAYLEY DAILY PRN albuterol sulfate [ProAir HFA] 90 mcg/actuation HFA aerosol inhaler 2 puff Inhalation Q4H PRN Qty: 8.5 7RF metoprolol succinate 25 mg tablet extended release 24 hr 25 mg PO DAILY Qty: 90 12RF multivitamin [Once Daily] 1 EACH tablet 1 tab PO DAILY ascorbic acid (vitamin C) [Vitamin C] 500 MG tablet 500 mg PO DAILY JOHANNA RED 1 cap PO DAILY BABY ASPIRIN 81 MG TAB.CHEW 81 mg PO DAILY lorazepam 0.5 mg tablet 0.5 mg PO BID PRN (Reason: agitation) Qty: 30 0RF Rx Instructions: 30 day supply; use sparingly calcium carbonate [Caltrate 600] 600 MG tablet 600 mg PO BID cholecalciferol (vitamin D3) 1,000 UNITS tablet 1,000 unit PO DAILY lidocaine [Lidoderm] 5 % adhesive patch,medicated 1 patch TP DAILY PRN (Reason: pain) Qty: 15 0RF Rx Instructions: leave on most painful area for up to 12 hrs acetaminophen [Tylenol Extra Strength] 500 MG tablet 500 mg PO QID Qty: 0 0RF ibuprofen [Motrin IB] 200 MG tablet 400 mg PO PC Qty: 0 0RF Discharge Instructions Instructions: Kidney Stones (ED) Additional Instructions: At this time you have evidence of a small kidney stone. This is likely the cause of your symptoms. This should pass within the next 12 to 48 hours, if not earlier. Please drink plenty of fluids, 10 to 12 cups/day at least. Make sure to supplement this with lemon. Please take the Toradol as directed and prescribed and 1000 mg of Tylenol every 6 hours as needed for pain. These are the maximum doses of these medicines. Please take the Flomax as directed. This will help in expediting the passage of your kidney stone. If your pain stops, you can stop taking the Flomax. Please strain your urine to collect the stone. This can then be analyzed by your family doctor. If you do not have resolution of your symptoms after 48 to 72 hours please follow-up closely with your family doctor or return here for reassessment. If you notice any worsening of your symptoms, or any new symptoms such as inability to urinate, vomiting, diarrhea, fever, chills, shortness of breath, chest pain, numbness, weakness, or fainting , please return immediately to the emergency department for reevaluation. Please follow up with your primary care provider as soon as possible for reassessment and reevaluation. As always, it was a pleasure participating in your medical care today. Referrals: Eulalio Taylor MD [ [facility] STAFF PHYSICIAN] - Annie Min MD, [place] [Primary Care Provider] -
[2023-07-17] MEDS: Ketorolac 15 MG/ML VIAL IVP (00:53)
[2023-07-17] MEDS: Tamsulosin 0.4 MG CAPCR 0.8 MG PO (00:54)
--- NOTE | 2023-07-17 00:56 | DI.VRAD_ITS ---
PROCEDURE INFORMATION: Exam: CT Abdomen And Pelvis Without Contrast Exam date and time: 07/17/2023 00:18 Age: 78 years old Clinical indication: Other: Hematuria; Additional info: Hematuria, R/O stones TECHNIQUE: Imaging protocol: Computed tomography of the abdomen and pelvis without contrast. COMPARISON: CT ABDOMEN PELVIS WO 12/22/2021 12:25 FINDINGS: Lungs: There are benign, calcified pulmonary granulomas. Heart: Cardiomegaly is partially seen. Trace pericardial fluid appears likely physiologic. Liver: No hepatic masses on noncontrast imaging. Gallbladder and bile ducts: No calcified stones. No ductal dilation. Pancreas: No gross pathology in the pancreas on noncontrast imaging. Spleen: No splenomegaly or focal lesions. Adrenal glands: No mass. Kidneys and ureters: 3 mm calculus in the upper right ureter causing moderate right hydronephrosis. No right nephrolithiasis. No left nephrolithiasis. No left hydronephrosis. Stomach and bowel: Colonic diverticulosis without diverticulitis. No gross pathology in the small bowel without IV contrast. Appendix: No evidence of appendicitis. Intraperitoneal space: No free air. No significant fluid collection. Vasculature: Tortuous aorta. Atherosclerosis. Lymph nodes: No significantly enlarged lymph nodes. Urinary bladder: The bladder is decompressed and the wall is not well assessed. No stones in the urinary bladder. Reproductive: Unremarkable as visualized. Bones/joints: Chronic bony changes with no acute fracture. Soft tissues: No suspicious lesions. Other findings: Motion artifact in the abdomen. IMPRESSION: 3 mm calculus in the upper right ureter causing moderate right hydronephrosis. Incidental findings as above. Dictated and Authenticated by: Rebecca Robles MD. Ordering:PEYTON Kim MD
[2023-07-17 01:38] VITALS: BP 170/101; PULSE 70; RESP 16; O2SAT 96
--- NOTE | 2023-07-17 11:22 | NUR.NOTE ---
Nursing Note:[facility] questioning how toradol was given
== END 2023-07-17 01:40 | disposition home or self-care (01) ==
PROVIDERS: Emergency Medicine; Emergency Provider Student in an Organized Health Care Education/Training Program; PCP Family Medicine
DX: R31.9 Hematuria, unspecified (principal); N13.2 Hydronephrosis with renal and ureteral calculous obstruction; I48.91 Unspecified atrial fibrillation; I10 Essential (primary) hypertension; F17.290 Nicotine dependence, other tobacco product, uncomplicated; F17.210 Nicotine dependence, cigarettes, uncomplicated; Z79.899 Other long term (current) drug therapy
CPT/HCPCS: 80053; 96374; 99284; 74176; 81003; 81015; 85025; 85610; 85730; 87086; J1885

== ENCOUNTER 2023-07-21 08:28 | Outpatient (REF) | payer MEDICARE, BC, SELFPAY ==
[2023-07-21 21:28] LABS: Bilirubin Negative (Negative); Blood Negative (Negative); Clarity Clear (Clear); Glucose Negative (Negative); Ketones Negative (Negative); Leukocyte Esterase Negative (Negative); Nitrite Negative (Negative); Urobilinogen 0.2 mg/dL (Up to 0.2); pH 5.5 (5-8)
== END 2023-07-21 08:29 | disposition home or self-care (01) ==
LOC: LBN 08:28
PROVIDERS: PCP Family Medicine; Visit Provider Family Medicine
DX: R31.9 Hematuria, unspecified (principal)
CPT/HCPCS: 81003

== ENCOUNTER 2023-08-19 02:24 | Outpatient (RCR) | payer MEDICARE, BC, SELFPAY ==
[2023-08-19] MEDS: Denosumab 60 MG/ML SYR SC (13:08)
== END 2023-09-03 23:59 | disposition home or self-care (01) ==
LOC: INF 02:24
PROVIDERS: PCP Family Medicine; Visit Provider Family Medicine
DX: M81.0 Age-related osteoporosis without current pathological fracture (principal)
CPT/HCPCS: 96372; J0897

== ENCOUNTER 2024-02-24 02:09 | Outpatient (RCR) | payer MEDICARE, BC, SELFPAY ==
[2024-02-24] MEDS: Denosumab 60 MG/ML SYR SC (13:05)
== END 2024-03-05 23:59 | disposition home or self-care (01) ==
LOC: INF 02:09
PROVIDERS: PCP Family Medicine; Visit Provider Family Medicine
DX: M81.0 Age-related osteoporosis without current pathological fracture (principal)
CPT/HCPCS: 96372; J0897

== ENCOUNTER 2024-02-24 02:53 | Outpatient (CLI) | payer MEDICARE, BC, SELFPAY ==
[2024-02-24 13:34] LABS: ALT 21 U/L (14-59); AST 13 U/L (15-37); Albumin 3.9 g/dL (3.4-5.0); Alkaline Phosphatase 83 U/L (46-116); Anion Gap 10.2 mmol/L (3-11); BUN 13 mg/dL (7-18); CO2 25.8 mmol/L (21.0-32.0); CREATININE 0.8 mg/dL (0.55-1.02); Calcium 8.9 mg/dL (8.5-10.1); Calculated LDL 112 mg/dL (<100); Chloride 104 mmol/L (98-107); Cholesterol 196 mg/dL (<200); Estimated GFR 76.31 (mL/min/1.73m2); Glucose 99 mg/dL (74-106); HDL Cholesterol 71 mg/dL (40-60); Potassium 4.1 mmol/L (3.5-5.1); Sodium 140 mmol/L (136-145); Total Protein 6.9 g/dL (6.4-8.2); Triglyceride 65 mg/dL (<150)
== END 2024-02-24 02:54 | disposition home or self-care (01) ==
LOC: LBO 02:53
PROVIDERS: PCP Family Medicine; Visit Provider Family Medicine
DX: I10 Essential (primary) hypertension (principal)
CPT/HCPCS: 36415; 80053; 80061; 96372; J0897

== ENCOUNTER 2024-04-25 01:47 | Outpatient (CLI) | payer MEDICARE, BC, SELFPAY ==
--- NOTE | 2024-04-25 07:15 | DI.CTLCSR_ITS ---
Exam(s) CT CHEST LUNG CANCER SCREEN EXAM: CT CHEST LUNG CANCER SCREEN CLINICAL HISTORY: Screening for lung cancer,CURRENT SMOKER, F17.210 TECHNIQUE: Imaging Protocol: Axial computed tomography images with coronal and sagittal reformatted images were created and reviewed COMPARISON: CT CT CHEST LUNG CANCER SCREEN from 04/22/2023 FINDINGS: Tracheobronchial tree: Patent where visualized. No bronchiectasis. Pulmonary parenchyma: No consolidation or dominant measurable mass. No architectural distortion. Calc ified granuloma are present. Lung Nodules: There is a stable 4 mm nodule in the left lower lobe (series 2, image 54). No new pulm onary nodules. Mediastinum and Yumiko: No dominant adenopathy or fluid collection. The esophagus is unremarkable. Thyroid gland: Unremarkable. Lymph nodes: Unremarkable. Pleura: No effusion or pneumothorax. Heart: The heart is not dilated. Mild coronary artery calcification is present. No pericardial effus ion. Aorta: Thoracic aorta non-dilated.Atherosclerotic calcification is present. Upper abdomen: Unremarkable. Soft Tissues: Unremarkable. Bones: Within normal limits. There are multiple stable thoracic compression fracture deformities. Th e bones are osteopenic. IMPRESSION: Stable calcified and noncalcified pulmonary nodules. Lung RADS Cat 2 - Benign Appearance / Behavior: Nodules with a very low likelihood of becoming a clin ically active cancer due to size or lack of growth Lung-RADS 1.0 CATEGORIES: Category 0 - Prior chest CT exam(s) being located for comparison. Category 1 - Annual screening in 12 months. No nodules or definitely benign nodules. Category 2 - Annual screening in 12 months. Benign appearance. Nodules with low likelihood of becomin g active cancer. Category 3 - 6-month follow-up. Probably benign. Short-term follow-up suggested. Nodules with low lik elihood of becoming active cancer. Category 4A - 3-month follow-up and CT/PET if >8 mm in size. Suspicious finding. Findings which requi re additional testing. Category 4B - Findings which require additional testing and tissue sampling. Suspicious finding. Category 4X - Category 3 or 4 nodules with additional features or imaging findings that increases the suspicion of malignancy. Modifier S- Potentially clinically significant finding. (Non lung cancer) RADIATION DOSE DELIVERED: 17.73mGy.cm Total DLP 17.73mGy.cmTotal DLP DATA REPOSITORY: All CT scans at this facility are submitted to the National Radiology Data Registry (NRDR) Dose Index Registry (DIR) with the [employer] (ACR). RADIATION OPTIMIZATION: All CT scans at this facility use at least one of these dose optimization te chniques: automated exposure control; mA and/or kV adjustment per patient size (includes targeted exa ms where dose is matched to clinical indication); or iterative reconstruction.
== END 2024-04-25 02:07 ==
LOC: DI 01:47
PROVIDERS: PCP Family Medicine; Visit Provider Family Medicine
DX: F17.210 Nicotine dependence, cigarettes, uncomplicated (principal); Z12.2 Encounter for screening for malignant neoplasm of respiratory organs; R91.1 Solitary pulmonary nodule
CPT/HCPCS: 71271

== ENCOUNTER 2024-05-24 03:16 | Outpatient (CLI) | payer MEDICARE, BC, SELFPAY ==
[2024-05-24 23:59] LABS: Hepatitis C Ab w Rflx HCV PCR Negative (Negative)
== END 2024-05-24 03:17 | disposition home or self-care (01) ==
LOC: LBO 03:16
PROVIDERS: PCP Family Medicine; Visit Provider Family Medicine
DX: Z11.59 Encounter for screening for other viral diseases (principal)
CPT/HCPCS: 36415; 86803

== ENCOUNTER 2024-08-31 03:03 | Outpatient (RCR) | payer MEDICARE, BC, SELFPAY ==
[2024-08-31] MEDS: Denosumab 60 MG/ML SYR SC (11:10)
== END 2024-09-02 23:59 | disposition home or self-care (01) ==
LOC: INF 03:03
PROVIDERS: PCP Family Medicine; Visit Provider Family Medicine
DX: M81.0 Age-related osteoporosis without current pathological fracture (principal)
CPT/HCPCS: 96372; J0897

== ENCOUNTER 2025-03-01 01:57 | Outpatient (RCR) | payer MEDICARE, BC, SELFPAY ==
[2025-03-01] MEDS: Denosumab 60 MG/ML SYR SC (11:33)
== END 2025-03-05 23:59 | disposition home or self-care (01) ==
LOC: INF 01:57
PROVIDERS: PCP Family Medicine; Visit Provider Family Medicine
DX: M81.0 Age-related osteoporosis without current pathological fracture (principal)
CPT/HCPCS: 96372; J0897

== ENCOUNTER 2025-03-15 04:32 | Outpatient (CLI) | payer MEDICARE, BC, SELFPAY ==
[2025-03-15 10:37] LABS: ALT 23 U/L (14-59); AST 16 U/L (15-37); Albumin 3.9 g/dL (3.4-5.0); Alkaline Phosphatase 79 U/L (46-116); Anion Gap 9.1 mmol/L (3-11); BUN 12 mg/dL (7-18); Bilirubin, Total 0.6 mg/dL (0.2-1.0); CO2 27.9 mmol/L (21.0-32.0); Calcium 9.2 mg/dL (8.5-10.1); Chloride 106 mmol/L (98-107); Estimated GFR 75.37 (mL/min/1.73m2); Glucose 79 mg/dL (74-106); Potassium 3.9 mmol/L (3.5-5.1); Sodium 143 mmol/L (136-145); Total Protein 7.0 g/dL (6.4-8.2)
== END 2025-03-15 04:33 | disposition home or self-care (01) ==
LOC: LBO 04:33
PROVIDERS: PCP Family Medicine; Visit Provider Family Medicine
DX: I10 Essential (primary) hypertension (principal)
CPT/HCPCS: 36415; 80053

== ENCOUNTER 2025-06-13 10:47 | Emergency (ER) | payer MEDICARE, BC, SELFPAY ==
[2025-06-13 10:50] VITALS: BP 135/84; PULSE 86; RESP 18; TEMP 36.8; O2SAT 98
[2025-06-13 10:54] VITALS: BP 135/84; PULSE 86; RESP 18; TEMP 36.8; O2SAT 98
--- NOTE | 2025-06-13 11:20 | W.ED.GENAD ---
Discharge Plan Disposition Patient Disposition: Home Discharge Details Clinical Impression: Back pain, Microscopic hematuria Primary Care Provider: Annie Min ED Provider: Hannah Glasgow Home Meds and New Rx's Prescriptions: Continued albuterol sulfate [ProAir HFA] 90 mcg/actuation HFA aerosol inhaler 2 puff Inhalation Q4H PRN Qty: 8.5 7RF lorazepam 0.5 mg tablet 0.5 mg PO BID PRN (Reason: agitation) Qty: 30 0RF Rx Instructions: 30 day supply; use sparingly acetaminophen [Tylenol Extra Strength] 500 mg tablet 500 mg PO QID PRN (Reason: pain) Qty: 1 0RF ibuprofen [Motrin IB] 200 mg tablet 400 mg PO PC PRN (Reason: pain) Qty: 1 0RF amlodipine 5 mg tablet 5 mg PO DAILY Qty: 90 6RF multivitamin [Once Daily] 1 EACH tablet 1 tab PO DAILY ascorbic acid (vitamin C) [Vitamin C] 500 MG tablet 500 mg PO DAILY JOHANNA RED 1 cap PO DAILY BABY ASPIRIN 81 MG TAB.CHEW 81 mg PO DAILY fluticasone propionate 50 mcg/actuation spray,suspension 2 spray HAYLEY DAILY PRN (Reason: nasal congestion) Qty: 16 0RF metoprolol succinate 25 mg tablet extended release 24 hr 25 mg PO DAILY Qty: 90 12RF calcium carbonate [Caltrate 600] 600 MG tablet 600 mg PO BID cholecalciferol (vitamin D3) 1,000 UNITS tablet 1,000 unit PO DAILY lidocaine [Lidoderm] 5 % adhesive patch,medicated 1 patch TP DAILY PRN (Reason: pain) Qty: 15 0RF Rx Instructions: leave on most painful area for up to 12 hrs Discharge Instructions Instructions: Upper Back Pain (DC), Managing acute pain at home, Blood in Urine (Hematuria), Adult ED Additional Instructions: Please follow-up with your primary care physician in 1 to 2 days for reassessment You will need your urine rechecked in 1 week to be sure that there is no more blood You may apply Lidoderm patches, 12 hours on 12 hours off You may also apply topical Voltaren gel to the area of tenderness Recommend light stretching tylenol as needed for pain please return with worsening pain, strength or sensation changes, or should any new concerns arise Stand Alone Forms: Portal Information Referrals: Annie Min MD, [place] [Primary Care Provider, Medicine] Discharge Data Discharge Date/Time-TO BE ENTERED AT DEPARTURE: 06/13/25 14:21 HPI General Date/Time Provider Initiated Documentation: 06/13/25 10:59. HPI Narrative: This 80-year-old female with history of compression fracture her thoracic spine is able chest pain, ureterolithiasis presents with left flank pain since Thursday denies known trauma hurts with movement and at rest. States she is not had any blood in urine does not recall pain similar to this in the past. Does report severe osteoporosis and has been having some coughing episodes but denies anything acute. Denies any fever or chills intermittent nausea. Denies any hematuria. Related Data Home Medications ?Medication ?Instructions ?Recorded ?Confirmed Johanna Red 1 cap PO DAILY 10/07/12 06/13/25 ascorbic acid (vitamin C) 500 mg 500 mg PO DAILY 10/07/12 06/13/25 tablet (Vitamin C) multivitamin (Once Daily tablet) 1 tab PO DAILY 10/07/12 06/13/25 calcium carbonate (Caltrate 600) 600 mg PO BID 01/13/13 06/13/25 cholecalciferol (vitamin D3) 25 1,000 unit PO DAILY 01/13/13 06/13/25 mcg (1,000 unit) tablet Baby Aspirin 81 mg PO DAILY 11/14/13 06/13/25 lidocaine 5 % topical patch 1 patch topical DAILY PRN pain #15 12/09/19 06/13/25 (Lidoderm) ea fluticasone propionate 50 2 spray intranasal DAILY PRN nasal 08/10/23 06/13/25 mcg/actuation nasal congestion #16 grams spray,suspension amlodipine 5 mg tablet 5 mg PO DAILY #90 tabs 09/20/24 06/13/25 acetaminophen 500 mg tablet 500 mg PO QID PRN pain #1 tab 04/24/25 06/13/25 (Tylenol Extra Strength) albuterol sulfate 90 mcg/actuation 2 puff inhalation Q4H PRN #8.5 04/24/25 06/13/25 aerosol inhaler (ProAir HFA) grams ibuprofen 200 mg tablet (Motrin IB) 400 mg (2 x 200 mg) PO PC PRN pain 04/24/25 06/13/25 #1 tab lorazepam 0.5 mg tablet 0.5 mg PO BID PRN agitation #30 04/24/25 06/13/25 tabs metoprolol succinate 25 mg 25 mg PO DAILY #90 tabs 05/10/25 06/13/25 tablet,extended release 24 hr Previous Rx's ?Medication ?Instructions ?Recorded lidocaine 5 % topical patch 1 patch topical DAILY PRN pain #15 12/09/19 (Lidoderm) ea fluticasone propionate 50 2 spray intranasal DAILY PRN nasal 08/10/23 mcg/actuation nasal congestion #16 grams spray,suspension amlodipine 5 mg tablet 5 mg PO DAILY #90 tabs 09/20/24 acetaminophen 500 mg tablet 500 mg PO QID PRN pain #1 tab 04/24/25 (Tylenol Extra Strength) albuterol sulfate 90 mcg/actuation 2 puff inhalation Q4H PRN #8.5 04/24/25 aerosol inhaler (ProAir HFA) grams ibuprofen 200 mg tablet (Motrin IB) 400 mg (2 x 200 mg) PO PC PRN pain 04/24/25 #1 tab lorazepam 0.5 mg tablet 0.5 mg PO BID PRN agitation #30 04/24/25 tabs metoprolol succinate 25 mg 25 mg PO DAILY #90 tabs 05/10/25 tablet,extended release 24 hr Allergies Allergy/AdvReac Type Severity Reaction Status Date / Time doxycycline Allergy Mild UNKNOWN Unverified 06/13/25 10:53 bupropion AdvReac Mild UNKNOWN Unverified 06/13/25 10:53 guaifenesin AdvReac Mild UNKNOWN Unverified 06/13/25 10:53 Sulfa (Sulfonamide AdvReac Unknown Nausea Unverified 06/13/25 10:53 Antibiotics) General Stated Complaint: FlankPain DEVIN: 3 Exam Narrative Exam Narrative: Alert and oriented, tenderness to palpation overlying left thoracic region and flank region, no rashes or lesions lungs clear to auscultation no acute distress distal pulses intact cardiac rate rhythm regular, no abdominal bruit or pulsatile mass, no rashes or lesions Course Vital Signs Vital signs: Vital Signs Temperature 36.8 C 06/13/25 10:50 Pulse 86 06/13/25 10:50 Respiratory Rate 18 06/13/25 10:50 Blood Pressure 135/84 06/13/25 10:50 Pulse Oximetry 98 06/13/25 10:50 Temperature 36.8 C 06/13/25 10:54 Pulse 86 06/13/25 10:54 Respiratory Rate 18 06/13/25 10:54 Blood Pressure 135/84 06/13/25 10:54 Pulse Oximetry 98 06/13/25 10:54 Pain Level 5 06/13/25 10:54 Medical Decision Making Results: Microscopic hematuria, 3-5 red blood cells on urinalysis, CBC and CMP does not show acute abnormality, CT chest abdomen pelvis noncontrast per radiology interpretation my review does not show evidence of acute abnormality Assessment and plan: 80-year-old female presenting with left flank pain, CTs are reassuring without acute abnormality. Pain is reproducible exacerbated with movement and, likely musculoskeletal versus radicular pain from thoracic compression fractures. Patient was encouraged to use Lidoderm patches, Tylenol Voltaren gel topically and to follow-up with primary care physician as needed. I offered PT referral she declined. She will need recheck of her urinalysis as she does have some red blood cells to be sure that this improves. No evidence of obvious ureterolithiasis or renal pathology on CT scan. Return precautions reviewed and patient expressed understanding Quality:SDOH Health Related Social Needs: Health related social needs lonely/isolated PFSH All Active Problems (Updated 06/13/25 @ 13:50 by ANU Downey) Microscopic hematuria (Acute) Back pain (Acute) Encounter for hepatitis C screening test for low risk patient (Acute) Skin exam for malignant neoplasm (Acute) Compression fracture of body of thoracic vertebra (Acute) Right knee DJD (Acute) Diarrhea (Acute) Anxiety (Chronic) Right knee pain (Acute) Intractable low back pain (Acute) Atypical chest pain (Acute) Chest pain, rule out acute myocardial infarction (Acute) Back pain (Acute) Compression fracture (Chronic) Back pain (Acute) Foot pain, bilateral (Acute) Chronic left shoulder pain (Acute 01/08/16) Abdominal pain (Acute) Paroxysmal atrial fibrillation (Chronic) Smoker (Acute 07/25/08) Osteoporosis (Chronic 09/02/01) T -4.5 Onychomycosis (Chronic 02/02/17) Hiatal hernia (Chronic 09/02/01) EGD CONFIRMED. 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) Depressive disorder (Chronic) Medical History (Updated 06/13/25 @ 13:50 by ANU Downey) Foot pain, right Abnormal laboratory test result Breast lump (11/02/02) Closed fracture of rib Grief (12/18/14) History of echocardiogram Hypokalemia (06/17/12) Standard chest x-ray abnormal Surgical History History of section History of esophagogastroduodenoscopy section (05/19/75) EGD - MAC (~2001) HH ECHO (10/15/12) PAROXYSMAL A-FIB ([place]) Colonoscopy - MAC (06/08/07) Family History Mother , 97 Rectal cancer Father , 75 COPD (chronic obstructive pulmonary disease) Sister , 73 Neoplasm BREAST Breast cancer Sister Diabetes COPD (chronic obstructive pulmonary disease) Hyperlipidemia Brother Essential hypertension Hyperlipidemia Maternal Grandfather , 73 Depression Paternal Grandfather , 73 Stroke Maternal Grandmother , 65 Lung cancer Paternal Grandmother , 78 No problems noted. Son No problems noted. Daughter No problems noted. Social History (Updated 05/01/25 @ 12:14 by Salma Heredia) Smoking/Tobacco Use Status: Current every day Tobacco Type: cigarettes and pipe Tobacco: How many years used: 50 Quit status: not considering quitting Second Hand Exposure: Yes Smoking risk assessment performed?: Yes Alcohol Intake: current Alcohol Intake frequency: holidays/special occasions only Alcohol type: wine Drug use: Never Substance use type: does not use Adopted: No Caregiver/Support person: No Household members: none Housing: apartment Number of Children: 2 number of grandchildren: 1 Communication Needs: None Education Level: high school Do you need help understanding health information?: Rarely current occupation: Retired Pets and animals: Yes Pets and animals: cat(s) Sexually active: No Do you think of yourself as: straight/heterosexual Current gender identity: female What is your relationship status?: How often do you talk on the phone with friends or family?: three or more times per week How often do you get together with friends or relatives?: twice per week How often do you attend taoist or yarsani services?: 4 or more times per year Do you belong to any clubs or organized social groups?: no Panel score (0-1 are the most socially isolated patients): 2 What type of physical activity do you participate in: walking Duration: 45-60 minutes/day Frequency: daily Komal/Hoahaoism: Muslim Special komal needs: No Seatbelt use: always Drive intox or ride w/intox frontload driver: No Firearms in home: Yes Firearms unloaded and locked: Yes Do you feel safe at home: Yes Do you feel safe in your relationship?: Yes
[2025-06-13 11:33] LABS: Glucose Negative (Negative)
[2025-06-13 11:40] LABS: C & S Indicated? No
[2025-06-13 11:41] LABS: Abs Immature Grans 0.01 10^3/uL (0.0-0.06); HCT 45.0 % (36.0-46.0); HGB 15.5 g/dL (11.2-15.7); Immature Grans % 0.2 %; MCH 33.3 pg (27.0-33.0); MCHC 34.4 % (32.0-36.0); MCV 97 fL (80-95); MPV 10.9 fL (8.0-11.0); Platelet Count 195 10^3/uL (130-400); RBC 4.65 10^6/uL (3.93-5.22); RDW 13.7 % (11.7-14.6); RDW-SD 48.5 fL; WBC 5.66 10^3/uL (4.4-10.8)
[2025-06-13 11:55] LABS: Lipase 35 U/L (<53)
[2025-06-13 11:58] LABS: ALT 18 U/L (10-49); AST 20 U/L (<34); Albumin 4.6 g/dL (3.2-5.0); Alkaline Phosphatase 76 U/L (46-116); Anion Gap 8 mmol/L (3-11); BUN 12 mg/dL (9-23); Bilirubin, Total 0.6 mg/dL (0.2-1.2); CO2 27.0 mmol/L (20.0-31.0); Calcium 9.5 mg/dL (8.3-10.6); Chloride 107 mmol/L (98-107); Glucose 91 mg/dL (74-106); Potassium 3.9 mmol/L (3.5-5.1); Sodium 142 mmol/L (136-145); Total Protein 7.0 g/dL (5.7-8.2)
--- NOTE | 2025-06-13 12:33 | DI.CT_ITS ---
Exam(s) CT CHEST/ABD/PEL WO EXAM: CT CHEST/ABD/PEL WO CLINICAL HISTORY: left flank pain and thoracic pain. TECHNIQUE: Imaging Protocol: Axial computed tomography images with coronal and sagittal reformatted images were created and reviewed. Computer aided detection (CAD) was utilized. CONTRAST MATERIAL: Noncontrast COMPARISON: CT CT ABDOMEN PELVIS WO from 07/17/[address] CHEST LUNG CANCER SCREEN from 04/25/2024 FINDINGS: CHEST: Pulmonary parenchyma: Mild emphysematous changes. Calcified granulomas. No consolidation. No dominant measurable mass. Tracheobronchial tree: No bronchiectasis. No mucous plugging.No bronchial wall thickening. Pleura: No effusion or pneumothorax. Mediastinum: Within normal limits. Pulmonary arteries: Cardiovascular: Heart is mildly enlarged. Trace pericardial effusion. The aorta is tortuous and measures 3.9 cm. Descending aorta measures 3.4 cm. Bones: Stable compression fractures of T7, T9 and T10. No lytic or blastic lesions. Soft tissues: Unremarkable. ABDOMEN and PELVIS: Liver: Normal density. No suspicious mass. Gallbladder and biliary tract: No evidence of stones or wall thickening. No biliary dilatation. Pancreas: Normal density, no abnormal calcifications or inflammatory process. Spleen: Normal. Kidneys: Normal size, contour and axis. No radiodense stones. No obstructive uropathy. No suspicious masses seen. Adrenal glands: No masses seen. Aorta: Abdominal portion non-dilated. Lymph nodes: Within normal limits. Soft tissues: Unremarkable. Bladder: Unremarkable. Bowel: No obstruction or bowel wall thickening. Peritoneal cavity: No ascites. No focal collection. No mesenteric inflammatory response. No free air. Bones: stable compression fractures of L1, L3 and L4 Reproductive organs: Unremarkable for age. IMPRESSION: No acute abnormality in the chest, abdomen or pelvis. Stable thoracic and lumbar compression fractures. RADIATION DOSE DELIVERED: 342.57mGy.cm Total DLP DATA REPOSITORY: All CT scans at this facility are submitted to the National Radiology Data Registry (NRDR) Dose Index Registry (DIR) with the [employer] (ACR). RADIATION OPTIMIZATION: All CT scans at this facility use at least one of these dose optimization techniques: automated exposure control; mA and/or kV adjustment per patient size (includes targeted exams where dose is matched to clinical indication); or iterative reconstruction.
[2025-06-13 14:21] VITALS: BP 111/81; PULSE 74; RESP 14; O2SAT 96
== END 2025-06-13 14:21 | disposition home or self-care (01) ==
PROVIDERS: Emergency Provider Physician Assistant; PCP Family Medicine
DX: R31.29 Other microscopic hematuria (principal); M54.50 Low back pain, unspecified; R10.A2 Flank pain, left side
CPT/HCPCS: 99283; 99284; 36415; 71250; 80053; 83690; 74176; 81003; 81015; 85025

== ENCOUNTER 2025-06-16 15:19 | Outpatient (REF) | payer MEDICARE, BC, SELFPAY ==
[2025-06-16 17:20] LABS: Glucose Negative (Negative)
[2025-06-16 17:32] LABS: C & S Indicated? No; RBC 0-2 HPF (0-2); WBC Negative HPF (0-5)
== END 2025-06-16 15:20 | disposition home or self-care (01) ==
LOC: LBN 15:19
PROVIDERS: PCP Family Medicine; Visit Provider Family Medicine
DX: R31.9 Hematuria, unspecified (principal)
CPT/HCPCS: 81003; 81015